=== PATIENT | male | born 1980 | race Two or more races ===

== ENCOUNTER 2024-11-05 23:16 | Inpatient (IN) | payer MEDICAID, SELFPAY ==
[2024-11-05 23:17] VITALS: BMI 25.8
--- NOTE | 2024-11-05 23:21 | XR_ITS ---
Examination: PA lateral chest 2 views Upright PA and lateral chest 2 views Date and time: November 06, 2024 0006 hours INDICATIONS: Cough and shortness of breath beginning one week ago. FINDINGS: Mild CHF Moderate enlargement of cardiac contour. Prominent vascular congestion with perihilar edema Fluid in the fissures on the lateral view IMPRESSION: Mild CHF.
[2024-11-05 23:48] VITALS: BP 128/92; PULSE 86; RESP 22; TEMP 36.9; O2SAT 97
[2024-11-06] VITALS (17 sets, daily range): BP systolic 110–151; BP diastolic 67–117; PULSE 75–90; RESP 15–36; TEMP 36.6–37; O2SAT 2–99; BMI 29.3
--- NOTE | 2024-11-06 00:26 | XR_ITS ---
Examination: CT chest, without intravenous contrast. Sagittal and coronal 2-D reconstructions. Exam date and time: November 06, 2024 at 0044 hours INDICATIONS: Shortness of breath today, enlarged heart on chest x-ray today CTDI:vol (mGy) 13.01 DLP: (mGycm) 549. Technique: Multiple 3.0 mm axial sections of the chest to been obtained. Bone and lung density settings are obtained. Sagittal and coronal 2-D reconstructions have been obtained. Low dose protocols were performed. One or more of the following dose reduction techniques were used; automated exposure control, adjustment of the mA and/or KV according to patient size, use of iterative reconstruction technique. Findings: No thoracic aortic aneurysmal dilatation Moderate enlargement cardiac contour with prominent vascular congestion and bilateral septal edema Suspicious for early superimposed pneumonia at the right lung base No visualized liver or splenic lesion The gallbladder wall is substantially thickened. IMPRESSION: [id number]-[id number] CHF Consider superimposed pneumonia right base Recommend hepatobiliary sonography follow-up to exclude cholecystitis
[2024-11-06 00:55] LABS: Lactate (Lactic Acid) 1.5 mMol/L (0.4-2.0)
[2024-11-06 00:57] LABS: Basophils # (Auto) 0.1 Thou/mm3 (0.0-0.2); Basophils % (Auto) 1 % (0-2.5); Eosinophils # (Auto) 0.2 Thou/mm3 (0.0-0.5); Eosinophils % (Auto) 2 % (0-10); Hematocrit 42.4 % (41.0-53.0); Hemoglobin 14.2 g/dL (13.5-16.0); Immature Granulocytes Auto 0.04 Thou/mm3 (0.00-0.00); Lymphocytes # (Auto) 2.5 Thou/mm3 (1.0-4.8); Lymphocytes % (Auto) 34 % (10-50); Mean Corpuscular HGB Conc 33.5 g/dl (31.0-37.0); Mean Corpuscular Hemoglobin 32.4 pg (25.0-35.0); Mean Corpuscular Volume 97 fL (80-100); Monocytes # (Auto) 0.6 Thou/mm3 (0.0-0.8); Monocytes % (Auto) 9 % (0-12); Neutrophils # (Auto) 4.0 Thou/mm3 (1.8-7.7); Neutrophils % (Auto) 54 % (37-80); Nucleated Red Blood Cell # 0.00 Thou/mm3 (0.00-0.00); Nucleated Red Blood Cell % 0 /100 WBC (0); Platelet Count 184 Thou/mm3 (140-440); RDW Standard Deviation 45.9 fL (35.1-43.9); Red Blood Count 4.38 Miln/mm3 (4.50-5.90); White Blood Count 7.3 Thou/mm3 (3.8-10.6)
--- NOTE | 2024-11-06 01:13 | PRELIM_ITS ---
CT scan of the chest without intravenous contrast (axial sections with sagittal and coronal reformats) November 06, 2024 at 0044 hours Clinical History: Enlarged heart, shortness of breath, pericardial effusion? Comparison: None. Findings: Small consolidation and ground-glass opacities in bilateral upper and lower lobes. Mild bilateral interstitial lung thickening. Dilated left atrium. Dilated left ventricle. No evidence of pleural effusion or pneumothorax. The mediastinum demonstrates no evidence of mass or lymphadenopathy. The thoracic aorta is unremarkable. There is no pericardial effusion. The osseous structures are unremarkable. The visualized upper abdominal viscera are unremarkable on this noncontrast study. Impression: 1. Bilateral interstitial lung thickening, suspicious for pulmonary edema. 2. Dilated left atrium and left ventricle, correlation with echocardiogram is recommended. 3. Small bilateral consolidation and ground-glass opacities, probably infectious/inflammatory in etiology. Report Electronically Signed By: Laith Donnelly 11/06/2024 1:11:10 AM [EST]
[2024-11-06 01:38] LABS: B-Type Natriuretic Peptide 1274 pg/mL (0-100)
[2024-11-06 01:47] LABS: Alanine Aminotransferase 20 U/L (10-49); Albumin, Serum 3.9 gm/dL (3.5-5.0); Albumin/Globulin Ratio 1.5 (1.2-2.2); Alkaline Phosphatase 107 U/L (46-116); Anion Gap 9 (7-16); Aspartate Amino Transferase 24 U/L (0-34); BUN/Creatinine Ratio 10 Ratio (12-20); Bilirubin,Total 0.8 mg/dL (0.3-1.2); Blood Urea Nitrogen 9 mg/dL (9-23); Calcium 8.8 mg/dL (8.3-10.6); Calcium (Corrected) 8.9 mg/dL (8.5-10.1); Carbon Dioxide 24.0 mMol/L (20.0-31.0); Chloride 111 mMol/L (98-107); Creatinine (Component) 0.9 mg/dL (0.6-1.3); Estimated Creatinine Clearance 93.5 mL/min (>60); Globulin 2.6 gm/dL (2.3-3.5); Glucose 106 mg/dL (74-106); Osmolality,Calculated 285 (275-295); Potassium 4.2 mMol/L (3.4-5.1); Procalcitonin 0.05 ng/ml (0.0-0.49); Sodium 144 mMol/L (136-145); Total Protein 6.5 gm/dL (5.7-8.2); eGFR > 60 See Note
[2024-11-06 01:48] LABS: Troponin I 2.473 ng/mL (0.0-0.045)
--- NOTE | 2024-11-06 01:49 | EKG_ITS ---
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
--- NOTE | 2024-11-06 01:49 | PD.EDSOB ---
ED SOB =RME/HPI General Chief Complaint: Shortness of Breath/Dyspnea Stated Complaint: COUGH SOB Time Seen by Provider: 11/06/24 00:25 Arrival date/time: 11/05/24 23:16 44M with no significant PMH presents to ED with 1 week of worsening non-bloody cough and SOB. Patient denies fevers/chills and CP. Limitations: no limitations Related Data Allergies Allergy/AdvReac Type Severity Reaction Status Date / Time No Known Allergies Allergy Verified 11/05/24 23:16 Review of Systems Review of Systems Systems Reviewed: All systems reviewed, normal except as documented Constitutional Constitutional: Reports system reviewed and no additional complaints, except as documented, Denies fever(s) and Denies headache(s) ENT Ears, Nose, Mouth, and Throat: Denies disequilibrium and Denies headache(s) Cardiovascular Cardiovascular: Reports system reviewed and no additional complaints, except as documented, Reports as per HPI, Denies chest pain and Reports dyspnea Respiratory Respiratory: Reports system reviewed and no additional complaints, except as documented, Reports as per HPI, Reports cough and Reports dyspnea Gastrointestinal Gastrointestinal: Reports system reviewed and no additional complaints, except as documented, Denies abdominal pain, Denies nausea and Denies vomiting Neurologic Neurologic: Reports system reviewed and no additional complaints, except as documented, Denies confusion, Denies disequilibrium and Denies headache(s) Psychiatric Psychiatric: Denies confusion Past Medical History Social History SMOKING STATUS: Never smoker ED Exam General Limitations: Present no limitations General appearance: Present alert and in no apparent distress Head Head exam: Present atraumatic Eye Eye exam: Present normal appearance, PERRL and EOMI ENT ENT exam: Present normal exam, normal oropharynx and mucous membranes moist Neck Neck exam: Present normal inspection, full ROM and trachea midline Chest Chest inspection: Present normal inspection and symmetric chest wall rise Respiratory Respiratory exam: Present normal lung sounds bilaterally Cardiovascular Cardiovascular exam: Present regular rate, normal rhythm and normal heart sounds Abdominal Exam Abdominal exam: Present soft and normal bowel sounds Extremities Exam Extremities exam: Present normal inspection and full ROM Back Exam Back exam: Present normal inspection and full ROM Neurological Exam Neurological exam: Present alert, oriented X3 and CN II-XII intact Psychiatric Psychiatric exam: Present normal affect and normal mood Skin Skin exam: Present warm, dry, intact and normal color Course Quality Measures none Orders Category Date Time Status Bedside COVID-19 Antigen Test NOW Care 11/06/24 02:29 Active COVID-19 Screening Questionnaire NOW Care 11/06/24 02:12 Active Decision to Admit X1 Care 11/06/24 02:12 Completed EKG (ED ONLY) *Do not use* NOW Care 11/06/24 01:49 Completed Insert IV NOW Care 11/06/24 01:[address] chest wo con Stat Exams 11/06/24 00:26 Taken EKG (ED Only) Stat Exams 11/06/24 01:49 Draft XR chest 2V Stat Exams 11/05/24 23:21 Taken BNP [B-Type Natriuretic Peptide] Stat Lab 11/06/24 00:46 Completed CBC Stat Lab 11/06/24 00:46 Completed CMP [Comprehensive Metabolic Panel] Stat Lab 11/06/24 00:46 Completed Lactate (Lactic Acid) Stat Lab 11/06/24 00:46 Completed Procalcitonin Stat Lab 11/06/24 00:46 Completed Troponin I Stat Lab 11/06/24 00:46 Completed Furosemide Inj [Lasix Inj] Med 11/06/24 02:28 Discontinued 40 mg IVP X1 ONE Vital Signs Vital signs: Vital Signs Temperature 98.4 F 11/05/24 23:48 Pulse Rate 86 11/05/24 23:48 Respiratory Rate 22 H 11/05/24 23:48 Blood Pressure 128/92 H 11/05/24 23:48 Pulse Oximetry (%) 97 11/05/24 23:48 Oxygen Delivery Method Room Air 11/05/24 23:48 O2 at 97% on RA and WNLs Shortness of Breath / Dyspnea MDM Narrative MDM Narrative:: 44M with no significant PMH presents to ED with 1 week of worsening non-bloody cough and SOB. Patient denies fevers/chills and CP. Physical exam reveals increased WOB, but clear lungs. Patient is afebrile, calm, and alert. EKG is LVH w/ non-specific ST-T wave changes. CXR enlarged heart. CT reveals dilated L ventricle and atrium, with pulmonary edema. No lobar PNA. No leukocytosis. CMP unremarkable. Procal/lactate normal. Trop and BNP significantly elevated. Spoke to IM resident who reports to Dr. Huggins who will admit patient for new onset HF. Patient data External records reviewed:: None Clinical information provided by:: patient Social determinants that could affect healthcare access:: none Patient has the following chronic illnesses:: none How is presenting disease/condition affected by chronic disease/condition?: no chronic disease Evaluation data The following diagnostics were reviewed and interpreted by me:: lab results, radiology exam(s) and EKG tracing(s) Lab and/or radiology exams considered but not ordered:: ordered Interpretation Summary: above Medications / Prescriptions Medications or Prescriptions considered but not ordered:: ordered Medication administrations:: Medication Administration History Discontinued Medications Furosemide (Furosemide Inj 10 Mg/Ml 4ml Vial) 40 mg IVP X1 ONE Stop: 11/06/24 02:29 Last Admin: 11/06/24 02:34 Dose: 40 mg Documented By: DT above Consultations Consultation(s) initiated? (list below): Yes Diagnosis Shortness of Breath Differential Diagnosis: acute exacerbation of chronic obstructive airways disease, congestive heart failure, community acquired pneumonia, asthma with exacerbation, pulmonary embolism and other (new onset heart failure) Most likely diagnosis given after review of the tests above:: new onset heart failure Admission Indicated Admission indicated?: indicated Admission Request Was there a request for admission?: Yes Admission Attestation Admission request attestation: Discussed case with [Dr. Huggins] from Hospitalist service regarding admission. Discussed patients ED course, exam findings, labs, and radiology results. The Hospitalist [agrees] to accept the patient for admission. Disposition Plan Disposition Plan: Admit Discharge Plan Plan Patient Disposition: Admit Acute Care w/in Hospital Prescriptions/Referrals Referrals: No Primary/Family,Physician [Primary Care Provider] - In 1 week Problem List Clinical Impression: New onset of congestive heart failure Patient/Caregiver Discharge Instructions Print Language: Slovenian Stand Alone Forms: Estella Award Info., Patient Portal Info Letter
[2024-11-06] MEDS: FUROSEMIDE INJ 10 MG/ML 4ML VIAL 40 MG IVP ×3 (02:34→18:43)
--- NOTE | 2024-11-06 02:53 | ESHP_ITS ---
Documentation for date of: 11/06/24 HPI History of Present Illness Chief complaint: Shortness of breath History of present illness: 44-year-old male past medical history of hypertension and meth use disorder presenting to the ED on 11/06 with shortness of breath. Patient states that shortness of breath started about 10 days ago but it has progressively worsened. He states that he cannot breathe anymore and has not slept for the past 3 days. Patient denies seeing PCP recently and has not followed up in several years. He admitted to meth use for about 5 years with last use several months ago. Patient has orthopnea, paroxysmal nocturnal dyspnea but denies any lower extremity swelling. Patient's daughter is bedside and corroborated story. 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 ROS: All 12 systems assessed and the patient denies unless otherwise stated in HPI In the ED, patient presented mildly hypertensive 120/92, heart rate of 86, respiratory 22, afebrile satting 97 on room air. Pertinent lab findings include WBC 7.3, hemoglobin 14.2, platelet 184, BUN 9, creatinine 0.9, EGFR greater than 60, lactic acid 1.5, troponin 2.473, BNP of 1274. Chest x-ray pending official read, CT chest without IV shows bilateral interstitial lung thickening suspicious for pulmonary edema, dilated left atrium and ventricle, small bilateral consolidation and groundglass opacities. EKG shows sinus rhythm with left axis deviation. Patient will be admitted for acute CHF exacerbation likely secondary to meth use disorder will be treated with IV diuretics and cardiology consultation. Exam Vital Signs Temp Pulse Resp BP Pulse Ox O2 Del Method 98.3 F 89 30 H 133/96 H 99 Room Air 11/06/24 02:03 11/06/24 02:34 11/06/24 02:03 11/06/24 02:34 11/06/24 02:03 11/06/24 02:03 Narrative Exam Physical Exam: GENERAL: Awake, appears to be in respiratory distress with tachypnea, appears stated age HEENT: NC/AT. Moist mucosa. PERRLA/EOMI. CARDIO: Heart RRR, distant heart sounds, no obvious murmurs auscultated. No JVD noted PULM: No coughing but appears visibly short of breath. Lungs clear to auscultation bilaterally GI: Abdomen soft, NT/ND, +BS. SKIN/MSK/EXT: No wounds/discoloration/rashes/edema/amputations. +Pedal pulses present B/L. NEURO: Oriented x3, Moves extremities x4, no focal neurologic deficits noted. Bedside POCUS shows likely global hypokinesis with low EF but no signs of pericardial effusion, hypertrophy of left ventricle Results: Labs 11/06/24 00:46 11/06/24 00:46 Labs: Short CBC 11/06/24 Range/Units 00:46 WBC 7.3 (3.8-10.6) Thou/mm3 Hgb 14.2 (13.5-16.0) g/dL Hct 42.4 (41.0-53.0) % Plt Count 184 (140-440) Thou/mm3 BMP 11/06/24 00:46 Sodium 144 Potassium 4.2 Chloride 111 H Carbon Dioxide 24.0 BUN 9 Creatinine 0.9 Glucose 106 Calcium 8.8 Cardiac Enzymes 11/06/24 Range/Units 00:46 Troponin I 2.473 H* (0.0-0.045) ng/mL Liver Function 11/06/24 Range/Units 00:46 Total Bilirubin 0.8 (0.3-1.2) mg/dL AST 24 (0-34) U/L ALT 20 (10-49) U/L Alkaline Phosphatase 107 (46-116) U/L Albumin 3.9 (3.5-5.0) gm/dL Quality Measures Quality Measures none Medications Home Medications and Allergies Allergies Allergy/AdvReac Type Severity Reaction Status Date / Time No Known Allergies Allergy Verified 11/05/24 23:16 Visit Medications Acetaminophen (Acetaminophen 325 Mg Tablet) 650 mg PO Q6H PRN PRN Reason: PAIN SCALE 1-3 (mild Stop: 12/06/24 02:45 Aspirin (Aspirin Ec 81 Mg Tabec) 81 mg PO QDAY YUE Stop: 12/07/24 08:59 Atorvastatin Calcium (Atorvastatin Calcium 20 Mg Tablet) 40 mg PO HS YUE Stop: 12/06/24 20:59 Furosemide (Furosemide Inj 10 Mg/Ml 4ml Vial) 40 mg IVP BIDD YUE Stop: 12/06/24 05:59 Heparin Sodium (Porcine) (Heparin Sod Inj 5000 Unit/Ml Vial) 4,350 unit 60 unit/kg (4350 unit) IV X1 ONE; Protocol Stop: 11/06/24 02:47 Heparin Sodium (Porcine) (Heparin Sod Inj 5000 Unit/Ml Vial) 2,200 unit 30 unit/kg (2200 unit) IV X1 ONE; Protocol Stop: 11/06/24 02:47 Heparin Sodium/Dextrose (Heparin In D5w Ivpb) 25,000 unit in 250 mls @ 8.709 mls/hr IV .Q24H YUE; Protocol Stop: 11/20/24 02:59 Ondansetron HCl (Ondansetron Inj 2 Mg/Ml Inj 2 Ml) 4 mg IVP Q6H PRN; Protocol PRN Reason: NAUSEA OR VOMITING Stop: 12/06/24 02:45 Discontinued Medications Aspirin (Aspirin 325 Mg Tablet) 325 mg PO X1 ONE Stop: 11/06/24 02:52 Furosemide (Furosemide Inj 10 Mg/Ml 4ml Vial) 40 mg IVP X1 ONE Stop: 11/06/24 02:29 Last Admin: 11/06/24 02:34 Dose: 40 mg Assessment & Plan Plan 44-year-old male past medical history of hypertension and meth use disorder presenting to the ED with shortness of breath will be admitted for acute CHF exacerbation likely secondary to meth use disorder will be treated with IV diuretics and cardiology consultation. #Acute congestive heart failure, likely reduced ejection fraction NYHA class IV Likely secondary to meth use disorder versus hypertrophic cardiomyopathy versus NSTEMI Patient last used meth several months ago, has hypertension On examination, patient appears in respiratory distress but on room air with no JVD, no peripheral edema, no crackles on auscultation BNP of 1274 CT chest without IV shows bilateral interstitial lung thickening suspicious for pulmonary edema, dilated left atrium and ventricle, small bilateral consolidation and groundglass opacities Plan: IV Lasix 40 twice daily Echo ordered Cardiology consulted, appreciate recommendations Strict I's and O's Daily weight Fluid restriction 1800 mL #NSTEMI type I #Elevated troponin As noted above patient has acute congestive heart failure possibly secondary to NSTEMI type I Patient did complain of back pain which is not present at the time of examination, no typical chest pain noted Troponin of 2.473 EKG shows sinus rhythm with left axis deviation Plan: Started patient on IV heparin drip Trend troponin Q6H Started patient on aspirin and atorvastatin #Hypertension Chronic medical problem, unsure if patient is on home antihypertensive Currently the patient is mildly hypertensive 133/96 Plan: Pending med rec Restart home medications when appropriate #Meth use disorder Patient is apparently been using 5 years of meth Last use was several months ago Plan: Urine drug screen ordered Counseled on cessation Consider social service consultation Health Maintenance: Lines: PIV Diet: N.p.o. Bowel: Not needed at this time GI prophylaxis: Not needed at this time DVT prophylaxis: Heparin drip Dispo: IV diuretics for acute CHF exacerbation, cardiology consulted Code: Full Patient seen and assessed with attending Dr. Joseluis Prieto, DO PGY-2 Internal Medicine - GME Attending Provider Attestation/Addendum I attest that I was physically present for the evaluation, physical examination, lab and imaging review of the patient with the residents. I discussed the case with the residents and agree with the findings and plans of care as documented above. After examination of the patient and review of the clinical data I feel that this patient needs admission to the hospital for further treatment/evaluation. Patient is a 44 years old male with past medical history of hypertension and prior methamphetamine abuse who presented to the ED with complaint of shortness of breath. Patient has been having worsening shortness of breath for last 7 to 10 days. His SOB has become much worse in the last 3 days. He also complained of some back pain, chest tightness and feels like he is drowning. Denied any chest pain or palpitation. At bedside, patient appears uncomfortable and in distress, noted to have tachypnea and appears short of breath. Denies any fever, chills, upper respiratory symptoms. He used to use methamphetamine but states that stopped several months ago, close to a year. He has orthopnea, PND but denies any lower extremity swelling. In the ED, vital signs are stable except for mild hypertension and tachypnea. Saturating well on room air. Lab results are significant for troponin of 2.[address] chest was done, preliminary read is states suspicion for pulmonary edema, dilated left atrium and ventricle, small bilateral consolidation and opacities. EKG shows left bundle branch block, T wave inversion in lateral leads including lead I, aVL, V5 and V6. Also findings suggestive of left ventricular hypertrophy. Bedside POCUS appears to show left ventricular hypertrophy and hypokinesis. We will admit the patient for management of acute congestive heart failure and concern for ACS. #Concern for ACS Patient complained of back pain, shortness of breath, feeling of drowning, appears uncomfortable, denies typical chest pain EKG shows left bundle branch block pattern, T wave inversion on lateral leads, no ST elevation, prior EKG not available for comparison CT chest concerning for pulmonary edema, patient has orthopnea/PND, no pedal edema Troponin level is at 2.473 We will start patient on heparin drip Also started aspirin and atorvastatin Cardiology contacted, will follow patient with us, appreciate recommendations #Acute CHF Patient has hypertension, history of meth abuse BNP level is 1274, CT chest suspicious for pulmonary edema, patient has SOB, orthopnea, PND Started on IV Lasix 40 mg twice daily Strict ins and outs, fluid restriction and daily weight Echocardiography ordered #Hypertension Not on home medication Monitor closely and add antihypertensives as needed #History of methamphetamine abuse Last use several months ago, urine toxicology negative Ana Huggins MD
--- NOTE | 2024-11-06 02:53 | ECHO_ITS ---
Transthoracic Echo Report Ht (in): 66 Wt (lb): 160 Exam Location: Echo Lab Status: Emergency [employer] Mixer: Makeda Morgan Indications: Procedure Performed: BP: 116 / 83 HR: 77 Technical Quality: Technically difficult study MEASUREMENTS (Male / Female) Normal Values 2D ECHO LV Diastolic Diameter PLAX 8.3 cm 4.2 - 5.9 / 3.9 - 5.3 cm LV Systolic Diameter PLAX 7.6 cm IVS Diastolic Thickness 0.9 cm 0.6 - 1.0 / 0.6 - 0.9 cm LVPW Diastolic Thickness 1.1 cm 0.6 - 1.0 / 0.6 - 0.9 cm LV Relative Wall Thickness 0.2 LVOT Diameter 2.6 cm Aortic Root Diameter 2.8 cm LA Systolic Diameter LX 5.0 cm 3.0 - 4.0 / 2.7 - 3.8 cm LV Ejection Fraction MOD 4C 19.7 % LV Cardiac Index MOD 4C 2412.5 cm?/min?m? LV Ejection Fraction 4C AL 20.6 % LV Cardiac Index 4C AL 2604.9 cm?/min?m? LA Volume Index 63.3 cm?/m? 16 - 28 cm?/m? M-MODE Aortic Root Diameter MM 3.0 cm LA Systolic Diameter MM 5.1 cm LA Ao Ratio MM 1.7 AV Cusp Separation MM 1.8 cm DOPPLER AV Peak Velocity 111.5 cm/s AV Peak Gradient 5.0 mmHg AV Mean Gradient 2.0 mmHg AV Velocity Time Integral 14.3 cm AI Peak Velocity 274.5 cm/s AI Peak Gradient 30.1 mmHg AI Pressure Half Time 966.0 ms LVOT Peak Velocity 56.9 cm/s LVOT Peak Gradient 1.3 mmHg LVOT Velocity Time Integral 7.4 cm LVOT Cardiac Index 1638.6 cm?/min?m? AV Area Cont Eq vti 2.8 cm? AV Area Cont Eq pk 2.7 cm? MV Area PHT 8.1 cm? MR Peak Velocity 449.0 cm/s MR Peak Gradient 80.6 mmHg Mitral E Point Velocity 86.8 cm/s Mitral A Point Velocity 34.9 cm/s Mitral E to A Ratio 2.5 LV E' Lateral Velocity 10.3 cm/s Mitral E to LV E' Lateral Ratio 8.4 LV E' Septal Velocity 2.9 cm/s Mitral E to LV E' Septal Ratio 29.5 TR Peak Velocity 467.0 cm/s TR Peak Gradient 87.2 mmHg PV Peak Velocity 59.7 cm/s PV Peak Gradient 1.4 mmHg FINDINGS Left Ventricle Global left ventricular systolic function is moderately decreased with normal wall thickness. The ejection fraction is visually estimated at 15 %. Global left ventricular systolic function is severely decreased. Right Ventricle The right ventricle is normal in size. The right ventricular systolic function is moderately decreased. Left Atrium Severely increased left atrial volume 63.3 mL/m?. Right Atrium The right atrium is normal by two-dimensional imaging, color flow and Doppler imaging with no structural abnormalities, no thrombus formation present. Atrial Septum The interatrial septum appears normal with no evidence of a shunt. Aorta The aorta is normal by two-dimensional, color flow and Doppler interrogation. Mitral Valve Moderate mitral regurgitation. Aortic Valve Aortic valve sclerosis. [id number] aortic valve regurgitation. Tricuspid Valve The tricuspid valve is normal by two-dimensional, color flow and Doppler interrogation. There is trace tricuspid valve regurgitation. Pulmonic Valve The pulmonic valve is not well visualized. There is no significant pulmonic valve regurgitation. Vessels The pulmonary artery appears normal. The inferior vena cava pulmonary and hepatic veins appear normal. Pericardium The pericardium is normal by two-dimensional imaging. There is no significant pericardial effusion. CONCLUSIONS Indication: Acute CHF Dilated cardiomyopathy LVEDD 8cm. Global LV systolic function is severely decreased with normal wall thickness. Estimated EF at 15 % The RV is normal in size. The RV systolic function is moderately decreased. Severely increased LA volume 63.3 mL/m?. Mild to moderate mitral regurgitation Juanis Garcia (Electronically Signed) Final Date: 07 November 2024 14:02
[2024-11-06 03:17] LABS: Amphetamine/Methamp Scrn,U Negative (Negative); Barbiturate Screen,Urine Negative (Negative); Benzodiazepines Screen,Urine Negative (Negative); Benzoylecgonine Screen, Ur Negative (Negative); Fentanyl Screen,Urine Negative (Negative); Opiate Screen,Urine Negative (Negative); THC Screen,Urine Negative (Negative)
[2024-11-06 03:20] LABS: INR 1.0 (0.9-1.3); Partial Thromboplastin Time 28.0 Seconds (22.0-36.0); Prothrombin Time 10.8 Seconds (9.0-12.2)
[2024-11-06] MEDS: HEPARIN SOD INJ 5000 UNIT/ML VIAL 4000 UNIT IV ×2 (03:44→10:57)
[2024-11-06] MEDS: Heparin/D5w 25K 250 ML Ivpb 25,000 UNIT/250 ML BAG 9.906 UNIT IV (03:46)
[2024-11-06 04:46] LABS: Basophils # (Auto) 0.1 Thou/mm3 (0.0-0.2); Basophils % (Auto) 1 % (0-2.5); Eosinophils # (Auto) 0.2 Thou/mm3 (0.0-0.5); Eosinophils % (Auto) 2 % (0-10); Hematocrit 43.6 % (41.0-53.0); Hemoglobin 14.6 g/dL (13.5-16.0); Immature Granulocytes Auto 0.07 Thou/mm3 (0.00-0.00); Lymphocytes # (Auto) 2.2 Thou/mm3 (1.0-4.8); Lymphocytes % (Auto) 27 % (10-50); Mean Corpuscular HGB Conc 33.5 g/dl (31.0-37.0); Mean Corpuscular Hemoglobin 32.4 pg (25.0-35.0); Mean Corpuscular Volume 97 fL (80-100); Monocytes # (Auto) 0.6 Thou/mm3 (0.0-0.8); Monocytes % (Auto) 7 % (0-12); Neutrophils # (Auto) 5.1 Thou/mm3 (1.8-7.7); Neutrophils % (Auto) 62 % (37-80); Nucleated Red Blood Cell # 0.00 Thou/mm3 (0.00-0.00); Nucleated Red Blood Cell % 0 /100 WBC (0); Platelet Count 200 Thou/mm3 (140-440); RDW Standard Deviation 46.2 fL (35.1-43.9); Red Blood Count 4.51 Miln/mm3 (4.50-5.90); White Blood Count 8.2 Thou/mm3 (3.8-10.6)
[2024-11-06 04:57] LABS: Glucose Estimated Average 120 mg/dL (80-131); Hemoglobin A1C 5.8 % Hgb (4.8-6.0)
[2024-11-06 04:59] LABS: Alanine Aminotransferase 23 U/L (10-49); Albumin, Serum 4.3 gm/dL (3.5-5.0); Albumin/Globulin Ratio 1.5 (1.2-2.2); Alkaline Phosphatase 113 U/L (46-116); Anion Gap 11 (7-16); Aspartate Amino Transferase 26 U/L (0-34); BUN/Creatinine Ratio 13 Ratio (12-20); Bilirubin,Total 1.0 mg/dL (0.3-1.2); Blood Urea Nitrogen 13 mg/dL (9-23); Calcium 9.4 mg/dL (8.3-10.6); Calcium (Corrected) 9.4 mg/dL (8.5-10.1); Carbon Dioxide 25.3 mMol/L (20.0-31.0); Cardiac Risk Estimate 4.1 RATIO (4.0-6.7); Chloride 108 mMol/L (98-107); Cholesterol 199 mg/dL (132-200); Creatinine (Component) 1.0 mg/dL (0.6-1.3); Estimated Creatinine Clearance 94.1 mL/min (>60); Globulin 2.8 gm/dL (2.3-3.5); Glucose 112 mg/dL (74-106); HDL Cholesterol 49 mg/dL (40-60); LDL Cholesterol,Calculated 123 mg/dL (0-130); Magnesium 1.6 mg/dL (1.6-2.6); Osmolality,Calculated 287 (275-295); Phosphorous 3.6 mg/dL (2.4-5.1); Potassium 3.9 mMol/L (3.4-5.1); Sodium 144 mMol/L (136-145); Total Protein 7.1 gm/dL (5.7-8.2); Triglycerides 135 mg/dL (30-150); eGFR > 60 See Note
--- NOTE | 2024-11-06 07:10 | PC.NURSE ---
Pt denies any pain upon assumption of care, pt does have increased work of breathing, sitting up on side of bed, pt is 98%, and hypertensive. at bedside attentive to pt, urinal emptied at this time, (See I&O). Will cont w/poc.
[2024-11-06 07:27] LABS: Troponin I 2.416 ng/mL (0.0-0.045)
--- NOTE | 2024-11-06 08:37 | PC.NURSE ---
Pt calm resting w/eyes closed, remains hypertensive on tele, does not appear to be in any distress, opt breathing normally w/even rise and fall of chest. Daughter at bedside attentive to pt.
[2024-11-06 10:41] LABS: Partial Thromboplastin Time 32.3 Seconds (22.0-36.0)
[2024-11-06] MEDS: Magnesium Sulfate 4 GM Ivpb 4 GM/50 ML BAG IV (10:41)
[2024-11-06 13:45] LABS: Troponin I 2.259 ng/mL (0.0-0.045)
--- NOTE | 2024-11-06 13:49 | PC.CC ---
Patient is a 44 year-old male who present to the hospital for Acute CHF Exacerbation. Maddie DOWNING and NON CATEGORICAL PRESCHOOL TEACHER Student [employer] made [id number] contact with patient. ASW introduced self, role, and reason for visit. Patient appeared alert and oriented to self, location, and situation. Patient provided consent for NON CATEGORICAL PRESCHOOL TEACHER to remain in the room during assessment. Patient was pleasant and engaged in initial assessment. Patient confirmed information on demographics and reports to living with his father. Patient's medical decision maker in the event he is unable to make his own medical decisions is his daughter, Bhumi Laureano . At home patient ambulates independently and completes his own ADLs. Patient does not require any DME or Oxygen. Patient reports he does not have primary provider and uses [facility] for prescription medications. Upon discharge patient plans to return home. rn social services to follow up on discharge on needs.
--- NOTE | 2024-11-06 15:41 | PC.CC ---
Discussed w/ Dr. Walton and patient is anticipated to discharge on Entresto which requires PA with [facility]. Due to patient's new HPE, his insured status is not yet recognized electronically and unable to complete PA. Provided Entresto free trial card to MD for patient to use upon discharge.
--- NOTE | 2024-11-06 15:46 | ESPR_ITS ---
<Statement entered by Terrie Huitron MD - 11/10/24 08:03> I reviewed above note and agree with findings and plans. I have also personally examined the patient with medicine team and went over assessment and plan with medical team including international sales representative and resident physician. <Statement entered by Poli Walton MD - 11/06/24 17:00> Patient seen and examined at bedside. I discussed and supervised with the international sales representative physician who took care of this patient. I personally saw and examined the patient. I agree with most of the assessment and plan. Per cardio, no plan for cath, troponin elevation likely due to non-ischemic cardiomyopathy. Heparin drip stopped. Echo pending, will begin initiating GDMT after echo read. Utox negative, patient reports last meth use 1 month ago. Will continue Lasix 40 IV BID and fluid restriction. Plan of care discussed with attending Dr. Huitron. Poli Walton MD PGY-2 Documentation for date of: 11/06/24 Subjective Subjective Interval history: Patient reports improvement in breathing and less chest heaviness, though mild residual chest discomfort persists. Denies palpitations, dizziness, leg swelling, orthopnea, PND, fever, chills, nausea, vomiting, or visual changes. States he has urinated since admission but has not had a bowel movement. Denies recent meth use; last use about 1 month ago. No withdrawal symptoms. No new complaints today and appreciates being able to rest. Exam Vital Signs Temp Pulse Resp BP Pulse Ox O2 Del Method O2 Flow Rate 98.0 F 77 18 116/83 97 Nasal Cannula 2 11/06/24 15:04 11/06/24 15:04 11/06/24 15:04 11/06/24 15:04 11/06/24 15:04 11/06/24 15:04 11/06/24 15:04 Narrative Exam Gen: Awake, alert, calm, NAD HEENT: NCAT, moist mucosa, PERRLA, EOMI CV: RRR, no murmurs, no JVD Resp: No increased work of breathing, lungs clear bilaterally Abd: Soft, NT/ND, +BS Ext: No edema, +pedal pulses Neuro: AOx3, no focal deficits Objective Labs 11/06/24 04:28 11/06/24 04:28 Labs: Laboratory Results - last 24 hr 11/06/24 11/06/24 11/06/24 00:46 02:54 04:28 WBC 7.3 8.2 RBC 4.38 L 4.51 Hgb 14.2 14.6 Hct 42.4 43.6 MCV 97 97 MCH 32.4 32.4 MCHC 33.5 33.5 RDW Std Deviation 45.9 H 46.2 H Plt Count 184 200 Neut % (Auto) 54 62 Lymph % (Auto) 34 27 [place] % (Auto) 9 7 Eos % (Auto) 2 2 Baso % (Auto) 1 1 Neut # (Auto) 4.0 5.1 Lymph # (Auto) 2.5 2.2 [place] # (Auto) 0.6 0.6 Eos # (Auto) 0.2 0.2 Baso # (Auto) 0.1 0.1 Immature Gran # (Auto) 0.04 H 0.07 H Absolute Nucleated RBC 0.00 0.00 Immature Gran % 1 H 1 H Nucleated RBC % 0 0 PT 10.8 INR 1.0 APTT 28.0 Sodium 144 144 Potassium 4.2 3.9 Chloride 111 H 108 H Carbon Dioxide 24.0 25.3 Anion Gap 9 11 BUN 9 13 Creatinine 0.9 1.0 Estim Creat Clear Calc 93.5 94.1 eGFR > 60 > 60 BUN/Creatinine Ratio 10 L 13 Glucose [address] Glu mg/dL 120 Hemoglobin A1c 5.8 Calculated Osmolality 285 287 Lactic Acid 1.5 Calcium 8.8 9.4 Corrected Calcium 8.9 9.4 Phosphorus 3.6 Magnesium 1.6 Total Bilirubin 0.8 1.0 AST 24 26 ALT 20 23 Alkaline Phosphatase 107 113 Troponin I 2.473 H* B-Natriuretic Peptide 1274 H* Total Protein 6.5 7.1 Albumin 3.9 4.3 Globulin 2.6 2.8 Albumin/Globulin Ratio 1.5 1.5 Triglycerides 135 Cholesterol 199 LDL Cholesterol, Calc 123 HDL Cholesterol 49 Cholesterol/HDL Ratio 4.1 Procalcitonin 0.05 Urine Opiates Screen Negative Urine Fentanyl Screen Negative Ur Barbiturates Screen Negative U Amphetamin/Meth Scrn Negative U Benzodiazepines Scrn Negative U Cocaine Metab Screen Negative U Marijuana (THC) Screen Negative 11/06/24 11/06/24 11/06/24 06:45 10:19 13:09 WBC RBC Hgb Hct MCV MCH MCHC RDW Std Deviation Plt Count Neut % (Auto) Lymph % (Auto) [place] % (Auto) Eos % (Auto) Baso % (Auto) Neut # (Auto) Lymph # (Auto) [place] # (Auto) Eos # (Auto) Baso # (Auto) Immature Gran # (Auto) Absolute Nucleated RBC Immature Gran % Nucleated RBC % PT INR APTT 32.3 Sodium Potassium Chloride Carbon Dioxide Anion Gap BUN Creatinine Estim Creat Clear Calc eGFR BUN/Creatinine Ratio Glucose Estimated Ave Glu mg/dL Hemoglobin A1c Calculated Osmolality Lactic Acid Calcium Corrected Calcium Phosphorus Magnesium Total Bilirubin AST ALT Alkaline Phosphatase Troponin I 2.416 H* 2.259 H* B-Natriuretic Peptide Total Protein Albumin Globulin Albumin/Globulin Ratio Triglycerides Cholesterol LDL Cholesterol, Calc HDL Cholesterol Cholesterol/HDL Ratio Procalcitonin Urine Opiates Screen Urine Fentanyl Screen Ur Barbiturates Screen U Amphetamin/Meth Scrn U Benzodiazepines Scrn U Cocaine Metab Screen U Marijuana (THC) Screen Quality Measures Quality Measures VTE prophylaxis Assessment & Plan Assessment Current Active Medications: Generic Name Dose Route Start Last Admin Trade Name Freq PRN Reason Stop Dose Admin Acetaminophen 650 mg 11/06/24 02:46 Acetaminophen 325 Mg Tablet PO 12/06/24 02:45 Q6H PRN PAIN SCALE 1-3 (mild Aspirin 81 mg 11/07/24 09:00 Aspirin Ec 81 Mg Tabec PO 12/07/24 08:59 QDAY YUE Atorvastatin Calcium 40 mg 11/06/24 21:00 Atorvastatin Calcium 20 Mg Tablet PO 12/06/24 20:59 HS YUE Enoxaparin Sodium 40 mg 11/07/24 09:00 Enoxaparin Sod Inj 40 Mg/0.4 Ml Syringe SC 11/21/24 08:59 QDAY YUE Furosemide 40 mg 11/06/24 06:00 11/06/24 07:10 Furosemide Inj 10 Mg/Ml 4ml Vial IVP 12/06/24 05:59 40 mg BIDD YUE Administration Ondansetron HCl 4 mg 11/06/24 02:46 Ondansetron Inj 2 Mg/Ml Inj 2 Ml IVP 12/06/24 02:45 Q6H PRN NAUSEA OR VOMITING Protocol Plan 44-year-old male with history of hypertension and methamphetamine use disorder (last use ~1 month ago), admitted for acute decompensated heart failure with elevated troponin and concern for NSTEMI likely type II, now improving with diuresis and pending Echo. #Non Ischemic Cardiomyopathy New diagnosis in setting of NYHA Class IV symptoms and meth use (last use ~1 month ago) Likely HFrEF given global hypokinesis on POCUS, CT/XR findings consistent with pulmonary edema, and elevated BNP. BNP 1274, CXR: vascular congestion, CT: LA/LV dilation + RLL infiltrate, Echo pending Plan: * Continue IV Lasix 40 mg BID * Strict I&Os, daily weights * Fluid restriction 1800 mL/day * Cardiology following ? will recommend starting GDMT after echo * Monitor for symptom improvement #NSTEMI (Type I vs II) Elevated troponin 2.473 --> 2.416, no dynamic EKG changes; LBBB pattern with lateral TWI; patient denies chest pain Plan: * Heparin drip discontinued * Continue to trend troponin q6h * Continue aspirin 81 mg daily + atorvastatin 40 mg daily * Follow-up with cardiology recs #Hypertension Chronic, likely uncontrolled, not on meds. BP mildly elevated on admission (133/96). Currently 116/83 Plan: * Monitor BP closely * Start guideline-directed therapy after echo and stabilization per cardiology #Methamphetamine Use Disorder Reported last use ~1 month ago, Utox negative, no signs of withdrawal Plan: * Counseling provided * Consider social work referral for substance use support * Monitor for withdrawal symptoms #Possible Superimposed Pneumonia CT chest showed possible RLL infiltrate Plan: * Monitor for fevers, sputum, leukocytosis * Hold antibiotics unless clinical suspicion rises #Hypomagnesemia Mg 1.6 Plan: * Replete with IV magnesium as needed * Recheck levels with daily labs Health Maintenance Disposition: Telemetry; monitor for improvement; initiate GDMT pending echo Lines: PIV Diet: NPO GI prophylaxis: Not indicated DVT prophylaxis: Lovenox Code status: Full ----- Plan discussed with attending physician Dr. Huitron and senior resident Dr. Anastacia MD PGY-1 Internal Medicine
[2024-11-06 17:42] LABS: Partial Thromboplastin Time 21.6 Seconds (22.0-36.0)
--- NOTE | 2024-11-06 19:16 | ESCONSULT_ITS ---
<Statement entered by Colby Hurtado MD - 11/08/24 12:52> I personally evaluated the patient examined the patient with the resident physician Dr. Boykin PGY 2 patient is has a history of polysubstance abuse methamphetamine abuse until recently never been to physician came to the hospital progressive shortness for 1 week as marked cardiomegaly dilated cardiomyopathy severe LV dysfunction ejection fraction 15%. Patient clearly has dilated cardiomyopathy possibly substance abuse related nonischemic type. There was some minor IVCD changes on EKG with subtle ST changes but no evidence of myocardial infarction troponin level persistently elevated not unusual patient with markedly dilated ventricle with dilated cardiomyopathy with decompensated heart failure. Recommend guideline directed medical management no evidence of myocardial infarction. Patient's not orthopneic anymore not have any significant shortness of breath and patient can be discharged home once he is diuresed well on diuretic ANNIKA ARB low-dose beta-amado combination as tolerated to have cardiology follow-up as an outpatient may require further workup but patient strongly counseled to stop methamphetamine use in future. Unless he stops methamphetamine abuse programs extremely poor I evaluated patient with resident physician PGY [address] Boykin agree with the treatment plan recommendation as documented HPI Data of Consult Requesting Physician: Ana Huggins MD Admitting Provider: Ana Huggins MD Attending Provider: Ana Huggins MD Primary Care Provider: Physician No Primary/Family Consult Narrative History of present illness: Mr. Rodriguez Is a 44-year-old male with no past medical presented to the ED on 11/06/2024 complaining of progressively worsening shortness of breath for the past 1 week. Patient states all of his symptoms started 1 week ago where he was having extreme shortness of breath and was unable to perform his daily activities. 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 Patient also had severe orthopnea and was unable to lay flat for the past 1 week. Patient denies any similar symptoms previously. Patient denies any dizziness, syncopal episodes, PND, chest pain, palpitations or pressure. Patient has not followed up with a primary care for many years because he states he had no medical problems. patient admits to smoking methamphetamine for approximately a year to a year and a half daily and states his last use was approximately 1 month ago. Patient denies any use of any other drugs including tobacco or alcohol. Patient also denies any family history of sudden cardiac or any cardiac history and either of his parents or siblings. Cardiology is consulted for new onset of CHF and concern for ST elevation found on EKG PMH: No known past medical history PSH: No known surgical history SH: Smoked methamphetamine for a year and a half daily denies smoking tobacco or other illicit drugs and denies any use of alcohol Family history: Patient denies any cardiac family history Medications: Patient does not take any medications cc:: cc: Ana Huggins MD Review of Systems Review of Systems Systems Reviewed: All systems reviewed, normal except as documented Exam Vital Signs Temp Pulse Resp BP Pulse Ox O2 Del Method O2 Flow Rate 98.4 F 86 18 121/87 H 97 Nasal Cannula 2 11/06/24 17:58 11/06/24 18:43 11/06/24 17:58 11/06/24 18:43 11/06/24 17:58 11/06/24 17:58 11/06/24 17:58 Narrative Exam GENERAL: A&Ox3 . middle aged male, well groomed and cooperative, Awake, Not in acute distress NEURO: no focal neurological deficits noted HEENT: Atraumatic, Normocephalic. mucous membranes moist. Eyes open, symmetrical, & clear HEART: Normal Heart Sounds LUNGS: Clear to auscultation with no wheezing or crackles. ABDOMEN: soft, non-distended, non-tender, bowel sounds heard, no guarding or rebound tenderness SKIN: No Rash or ecchymoses EXTREMITIES: No edema, tenderness, able to move all 4 extremities, pedal pulses palpated Results Labs 11/06/24 04:28 11/06/24 04:28 Labs: Short CBC 11/06/24 11/06/24 Range/Units 00:46 04:28 WBC 7.3 8.2 (3.8-10.6) Thou/mm3 Hgb 14.2 14.6 (13.5-16.0) g/dL Hct 42.4 43.6 (41.0-53.0) % Plt Count 184 200 (140-440) Thou/mm3 BMP 11/06/24 11/06/24 00:46 04:28 Sodium 144 144 Potassium 4.2 3.9 Chloride 111 H 108 H Carbon Dioxide 24.0 25.3 BUN 9 13 Creatinine 0.9 1.0 Glucose 106 112 H Calcium 8.8 9.4 Cardiac Enzymes 11/06/24 11/06/24 11/06/24 Range/Units 00:46 06:45 13:09 Troponin I 2.473 H* 2.416 H* 2.259 H* (0.0-0.045) ng/mL Liver Function 11/06/24 11/06/24 Range/Units 00:46 04:28 Total Bilirubin 0.8 1.0 (0.3-1.2) mg/dL AST 24 26 (0-34) U/L ALT 20 23 (10-49) U/L Alkaline Phosphatase 107 113 (46-116) U/L Albumin 3.9 4.3 (3.5-5.0) gm/dL Quality Measures Quality Measures VTE prophylaxis Medications Home Medications and Allergies Allergies Allergy/AdvReac Type Severity Reaction Status Date / Time No Known Allergies Allergy Verified 11/05/24 23:16 Visit Medications Acetaminophen (Acetaminophen 325 Mg Tablet) 650 mg PO Q6H PRN PRN Reason: PAIN SCALE 1-3 (mild Stop: 12/06/24 02:45 Aspirin (Aspirin Ec 81 Mg Tabec) 81 mg PO QDAY [facility] Stop: 12/07/24 08:59 Atorvastatin Calcium (Atorvastatin Calcium 20 Mg Tablet) 40 mg PO HS [facility] Stop: 12/06/24 20:59 Enoxaparin Sodium (Enoxaparin Sod Inj 40 Mg/0.4 Ml Syringe) 40 mg SC QDAY [facility] Stop: 11/21/24 08:59 Furosemide (Furosemide Inj 10 Mg/Ml 4ml Vial) 40 mg IVP BIDD YUE Stop: 12/06/24 05:59 Last Admin: 11/06/24 18:43 Dose: 40 mg Ondansetron HCl (Ondansetron Inj 2 Mg/Ml Inj 2 Ml) 4 mg IVP Q6H PRN; Protocol PRN Reason: NAUSEA OR VOMITING Stop: 12/06/24 02:45 Discontinued Medications Aspirin (Aspirin 325 Mg Tablet) 325 mg PO X1 ONE Stop: 11/06/24 02:52 Last Admin: 11/06/24 03:05 Dose: 325 mg Furosemide (Furosemide Inj 10 Mg/Ml 4ml Vial) 40 mg IVP X1 ONE Stop: 11/06/24 02:29 Last Admin: 11/06/24 02:34 Dose: 40 mg Heparin Sodium (Porcine) (Heparin Sod Inj 5000 Unit/Ml Vial) 4,350 unit 60 unit/kg (4350 unit) IV X1 ONE; Protocol Stop: 11/06/24 02:47 Last Admin: 11/06/24 04:03 Dose: Not Given Heparin Sodium (Porcine) (Heparin Sod Inj 5000 Unit/Ml Vial) 2,200 unit 30 unit/kg (2200 unit) IV X1 ONE; Protocol Stop: 11/06/24 02:47 Last Admin: 11/06/24 03:03 Dose: Not Given Heparin Sodium (Porcine) (Heparin Sod Inj 5000 Unit/Ml Vial) 4,000 unit IV X1 ONE; Protocol Stop: 11/06/24 03:15 Last Admin: 11/06/24 03:44 Dose: 4,000 unit Heparin Sodium (Porcine) (Heparin Sod Inj 5000 Unit/Ml Vial) 4,000 unit IV X1 ONE; Protocol Stop: 11/06/24 11:01 Last Admin: 11/06/24 10:57 Dose: 4,000 unit Heparin Sodium/Dextrose (Heparin In D5w Ivpb) 25,000 unit in 250 mls @ 8.709 mls/hr IV .Q24H YUE; Protocol Stop: 11/20/24 02:59 Last Admin: 11/06/24 04:04 Dose: Not Given Heparin Sodium/Dextrose (Heparin In D5w Ivpb) 25,000 unit in 250 mls @ 9.906 mls/hr IV .Q24H YUE; Protocol Stop: 11/20/24 03:29 Last Titration: 11/06/24 17:27 Dose: 0 units/kg/hr, 0 mls/hr Magnesium Sulfate (Magnesium Sulfate Ivpb) 4 gm in 50 mls @ 12.5 mls/hr IV X1 ONE Stop: 11/06/24 13:01 Last Infusion: 11/06/24 14:41 Dose: Infused Assessment & Plan Plan Mr. Rodriguez Is a 44-year-old male with no past medical presented to the ED on 11/06/2024 complaining of progressively worsening shortness of breath for the past 1 week. Pt is admitted for management of acute exacerbation of CHF. Cardiology is consulted for new onset of CHF and concern for ST elevation found on EKG #Nonischemic cardiomyopathy #Dilated cardiomyopathy #Methamphetamine induced cardiomyopathy #HFrEF, EF 15% #Elevated troponins #NSTEMI type II - Patient likely has non-ischemic cardiomyopathy in the setting of chronic methamphetamine use. At the time of admission patient denied any chest pain or pressure. - Patient endorses to severe shortness of breath and orthopnea for the past 1 week -Chest x-ray and CT of chest: Moderate enlargement cardiac contour with prominent vascular congestion and bilateral septal edema -BNP on admission was 1274 and troponins 2.473- > 2.416 -EKG is sinus rhythm with a rate of 85 and incomplete left axis deviation as well as left ventricular hypertrophy -NYHA Class IV -Overnight patient was started on heparin drip and was given a loading dose of aspirin and statin as per [facility] protocol Plan: -Discontinue heparin drip and aspirin as this is NSTEMI type II in the setting of non-ischemic cardiomyopathy -Recommend continuing Lasix 40 mg daily -Patient is not a candidate for ICD because patient has stage IV heart failure and currently not a candidate for CUSTOMS VERIFIER either because no evidence of right bundle branch block -Recommend starting the patient on GDMT with spironolactone, Coreg and lisinopril (although Entresto would be a better choice however due to insurance coverage it is better to start patient on ANNIKA inhibitor that he could afford and be compliant with long-term) -Patient will need to establish care with cardiology upon discharge to monitor his heart function and improvement after starting GDMT for 3 months -Continue strict I's and O's, daily weights, fluid restriction to 1800 mL/day and low-sodium diet. -Pt is cleared to be discharged home from cardiology Thank you for the consult and allowing us to participate in the care of the patient. Cardiology will continue to follow. Assessment and plan discussed with my attending Or[employer] E[employer] Dr. Bryant Boykin (PGY-2)- Internal medicine resident
[2024-11-06 19:39] LABS: Troponin I 2.377 ng/mL (0.0-0.045)
[2024-11-06] MEDS: ATORVASTATIN CALCIUM 20 MG TABLET 40 MG PO (21:53)
[2024-11-07] VITALS (13 sets, daily range): BP systolic 99–138; BP diastolic 57–92; PULSE 62–84; RESP 15–25; TEMP 36.2–36.7; O2SAT 94–98; BMI 29.3
[2024-11-07 05:53] LABS: Basophils # (Auto) 0.1 Thou/mm3 (0.0-0.2); Basophils % (Auto) 1 % (0-2.5); Eosinophils # (Auto) 0.1 Thou/mm3 (0.0-0.5); Eosinophils % (Auto) 2 % (0-10); Hematocrit 48.1 % (41.0-53.0); Hemoglobin 15.9 g/dL (13.5-16.0); Immature Granulocytes Auto 0.03 Thou/mm3 (0.00-0.00); Lymphocytes # (Auto) 1.6 Thou/mm3 (1.0-4.8); Lymphocytes % (Auto) 26 % (10-50); Mean Corpuscular HGB Conc 33.1 g/dl (31.0-37.0); Mean Corpuscular Hemoglobin 31.8 pg (25.0-35.0); Mean Corpuscular Volume 96 fL (80-100); Monocytes # (Auto) 0.6 Thou/mm3 (0.0-0.8); Monocytes % (Auto) 10 % (0-12); Neutrophils # (Auto) 3.7 Thou/mm3 (1.8-7.7); Neutrophils % (Auto) 60 % (37-80); Nucleated Red Blood Cell # 0.00 Thou/mm3 (0.00-0.00); Nucleated Red Blood Cell % 0 /100 WBC (0); Platelet Count 197 Thou/mm3 (140-440); RDW Standard Deviation 45.6 fL (35.1-43.9); Red Blood Count 5.00 Miln/mm3 (4.50-5.90); White Blood Count 6.2 Thou/mm3 (3.8-10.6)
[2024-11-07 06:28] LABS: Alanine Aminotransferase 19 U/L (10-49); Albumin, Serum 4.2 gm/dL (3.5-5.0); Albumin/Globulin Ratio 1.5 (1.2-2.2); Alkaline Phosphatase 109 U/L (46-116); Anion Gap 12 (7-16); Aspartate Amino Transferase 21 U/L (0-34); BUN/Creatinine Ratio 17 Ratio (12-20); Bilirubin,Total 1.4 mg/dL (0.3-1.2); Blood Urea Nitrogen 17 mg/dL (9-23); Calcium 9.3 mg/dL (8.3-10.6); Calcium (Corrected) 9.3 mg/dL (8.5-10.1); Carbon Dioxide 27.1 mMol/L (20.0-31.0); Chloride 104 mMol/L (98-107); Creatinine (Component) 1.0 mg/dL (0.6-1.3); Estimated Creatinine Clearance 94.1 mL/min (>60); Globulin 2.8 gm/dL (2.3-3.5); Glucose 110 mg/dL (74-106); Magnesium 2.4 mg/dL (1.6-2.6); Osmolality,Calculated 287 (275-295); Phosphorous 4.6 mg/dL (2.4-5.1); Potassium 4.1 mMol/L (3.4-5.1); Sodium 143 mMol/L (136-145); Total Protein 7.0 gm/dL (5.7-8.2); eGFR > 60 See Note
[2024-11-07] MEDS: ENOXAPARIN SOD INJ 40 MG/0.4 ML SYRINGE SC (08:45)
[2024-11-07] MEDS: SPIRONOLACTONE 25 MG TABLET PO (08:46)
[2024-11-07] MEDS: ASPIRIN EC 81 MG TABEC PO (08:46)
--- NOTE | 2024-11-07 09:30 | PC.SS ---
Per morning rounding, pt will need a O2 test before d/c. Plan is to d/c today pending the O2 test. Pt is currently at 2L of O2.
[2024-11-07] MEDS: ACETAMINOPHEN 325 MG TABLET 650 MG PO (12:39)
--- NOTE | 2024-11-07 14:22 | ESPR_ITS ---
<Statement entered by Terrie Huitron MD - 11/13/24 07:31> I reviewed above note and agree with findings and plans. I have also personally examined the patient with medicine team and went over assessment and plan with medical team including internal combustion engineer and resident physician. Documentation for date of: 11/07/24 Subjective Subjective Interval history: Patient reports improved breathing this morning. Currently on 2L O2 with SpO2 of 96%. Denies chest pain, pressure, or palpitations. Endorses adequate urine output and had bowel movement without melena or hematochezia. Denies dizziness, nausea, vomiting, or abdominal pain. Tolerating current therapy. Nurse was instructed to ambulate patient today to assess for exertional desaturation. Exam Vital Signs Temp Pulse Resp BP Pulse Ox O2 Del Method O2 Flow Rate 97.3 F 84 15 107/85 H 98 Room Air 3 11/07/24 12:00 11/07/24 12:11 11/07/24 12:00 11/07/24 12:00 11/07/24 12:00 11/07/24 12:00 11/07/24 08:00 Narrative Exam Gen: Awake, in no distress HEENT: NCAT, moist mucous membranes CV: RRR, no murmur, no JVD Resp: Lungs clear to auscultation bilaterally, on 2L O2, no accessory muscle use Abd: Soft, NT/ND, +BS Ext: No LE edema, +pedal pulses Neuro: AOx3, no focal deficits Objective Labs 11/07/24 05:12 11/07/24 05:12 Labs: Laboratory Results - last 24 hr 11/06/24 11/06/24 11/07/24 17:17 19:10 05:12 WBC 6.2 RBC 5.00 Hgb 15.9 Hct 48.1 MCV 96 MCH 31.8 MCHC 33.1 RDW Std Deviation 45.6 H Plt Count 197 Neut % (Auto) 60 Lymph % (Auto) 26 [place] % (Auto) 10 Eos % (Auto) 2 Baso % (Auto) 1 Neut # (Auto) 3.7 Lymph # (Auto) 1.6 [place] # (Auto) 0.6 Eos # (Auto) 0.1 Baso # (Auto) 0.1 Immature Gran # (Auto) 0.03 H Absolute Nucleated RBC 0.00 Immature Gran % 1 H Nucleated RBC % 0 APTT 21.6 L D Sodium 143 Potassium 4.1 Chloride 104 Carbon Dioxide 27.1 Anion Gap 12 BUN 17 Creatinine 1.0 Estim Creat Clear Calc 94.1 eGFR > 60 BUN/Creatinine Ratio 17 Glucose 110 H Calculated Osmolality 287 Calcium 9.3 Corrected Calcium 9.3 Phosphorus 4.6 Magnesium 2.4 Total Bilirubin 1.4 H AST 21 ALT 19 Alkaline Phosphatase 109 Troponin I 2.377 H* Total Protein 7.0 Albumin 4.2 Globulin 2.8 Albumin/Globulin Ratio 1.5 Quality Measures Quality Measures VTE prophylaxis Assessment & Plan Assessment Current Active Medications: Generic Name Dose Route Start Last Admin Trade Name Freq PRN Reason Stop Dose Admin Acetaminophen 650 mg 11/06/24 02:46 11/07/24 12:39 Acetaminophen 325 Mg Tablet PO 12/06/24 02:45 650 mg Q6H PRN Administration PAIN SCALE 1-3 (mild Aspirin 81 mg 11/07/24 09:00 11/07/24 08:46 Aspirin Ec 81 Mg Tabec PO 12/07/24 08:59 81 mg QDAY YUE Administration Atorvastatin Calcium 40 mg 11/06/24 21:00 11/06/24 21:53 Atorvastatin Calcium 20 Mg Tablet PO 12/06/24 20:59 40 mg HS YUE Administration Carvedilol 3.125 mg 11/07/24 17:30 Carvedilol 3.125 Mg Tablet PO 12/07/24 17:29 BIDWM YUE Enoxaparin Sodium 40 mg 11/07/24 09:00 11/07/24 08:45 Enoxaparin Sod Inj 40 Mg/0.4 Ml Syringe SC 11/21/24 08:59 40 mg QDAY YUE Administration Furosemide 40 mg 11/07/24 09:00 11/07/24 08:45 Furosemide 40 Mg Tablet PO 12/07/24 08:59 40 mg QDAY YUE Administration Lisinopril 10 mg 11/08/24 09:00 Lisinopril 2.5 Mg Tablet PO 12/08/24 08:59 QDAY YUE Ondansetron HCl 4 mg 11/06/24 02:46 Ondansetron Inj 2 Mg/Ml Inj 2 Ml IVP 12/06/24 02:45 Q6H PRN NAUSEA OR VOMITING Protocol Spironolactone 25 mg 11/07/24 09:00 11/07/24 08:46 Spironolactone 25 Mg Tablet PO 12/07/24 08:59 25 mg QDAY YUE Administration Plan 44-year-old male with history of hypertension and methamphetamine use disorder (last use ~1 month ago), admitted for acute decompensated heart failure with elevated troponin and concern for NSTEMI likely type II, now improving with diuresis and pending Echo. #Non Ischemic Cardiomyopathy New diagnosis in setting of NYHA Class IV symptoms and meth use (last use ~1 month ago) Echo shows dilated cardiomyopathy with LVEDD 8.0 cm, EF 15%, severely increased LA volume (63.3 mL/m?), moderately reduced RV systolic function, and [id number] MR. Global hypokinesis confirmed. Patient improving on diuresis, on 2L O2 with sats 96%, no orthopnea or edema. BNP 1274, CXR: pulmonary congestion, CT: LA/LV dilation + RLL infiltrate, now tolerating ambulation and breathing better. Plan: * Continue IV Lasix 40 mg daily * Strict I&Os, daily weights, fluid restriction 1800 mL/day * Initiated GDMT per cardiology: * Carvedilol 3.125 mg BID * Lisinopril 5 mg today, then 10 mg starting tomorrow * Spironolactone 25 mg daily (adjusted from BID due to borderline BP) * Ambulate daily and monitor for exertional desaturation * Not a candidate for ICD at this time (new diagnosis, NYHA IV) * Not a BLOW DOWN OPERATOR candidate (no RBBB) * Follow-up with cardiology in 3 months for repeat EF and long-term management #NSTEMI (Type I vs II) Elevated troponins (2.473 --> 2.416 --> 2.259 --> 2.377) in absence of chest pain or ischemic symptoms EKG: Sinus rhythm, incomplete LBBB, LVH Plan: * Heparin drip and aspirin discontinued per cardiology * Continue atorvastatin 40 mg daily * No ACS workup needed unless symptoms develop #Hypertension Chronic, likely uncontrolled, not on meds. BP mildly elevated on admission (133/96). Currently 107/85 Plan: * Monitor BP closely * Continue GDMT agents (lisinopril, carvedilol) * Titrate as tolerated after discharge #Methamphetamine Use Disorder Reported last use ~1 month ago, Utox negative, no signs of withdrawal Plan: * Counseling provided * Consider social work referral for substance use support * Monitor for withdrawal symptoms #Possible Superimposed Pneumonia CT chest showed possible RLL infiltrate Plan: * Monitor for fevers, sputum, leukocytosis * Hold antibiotics unless clinical suspicion rises #Hypomagnesemia (resolved) Mg repleted to 2.4 Plan: * No further supplementation needed * Monitor daily labs Health Maintenance Disposition: Medically cleared for discharge home by cardiology; Will discharge patient tomorrow after monitoring Bp Lines: PIV Diet: Low sodium GI prophylaxis: Not indicated DVT prophylaxis: Lovenox Code status: Full ----- Plan discussed with attending physician Dr. Elana Chacon MD PGY-1 Internal Medicine
[2024-11-07] MEDS: ATORVASTATIN CALCIUM 20 MG TABLET 40 MG PO (20:07)
[2024-11-08] VITALS (8 sets, daily range): BP systolic 91–129; BP diastolic 53–88; PULSE 67–87; RESP 18–23; TEMP 36.1–36.5; O2SAT 95–98; BMI 28.2
--- NOTE | 2024-11-08 03:39 | EKG_ITS ---
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
--- NOTE | 2024-11-08 03:45 | PC.NURSE ---
MT called to report that pt was having PVCs, couplets, quadgeminy, Pt reports no chest pain or discomfort, DR. Prieto was made aware. EKG ordered for pt.
--- NOTE | 2024-11-08 04:43 | PC.NURSE ---
MT called to report that pt was Afib for 4 seconds, Dr. Prieto was made aware. MD stated that he is not concerned if pt is not complaining of chest pain. RN. explained to MD that pt is not complaining of any chest pain or discomfort at this time. Pt was sleeping when commercial insurance underwriter got in the room to ask if he was if he was feeling any chest pain/discomfort. Pt stated that he was okay and that he was just trying to sleep.
[2024-11-08 06:09] LABS: Basophils # (Auto) 0.1 Thou/mm3 (0.0-0.2); Basophils % (Auto) 1 % (0-2.5); Eosinophils # (Auto) 0.2 Thou/mm3 (0.0-0.5); Eosinophils % (Auto) 3 % (0-10); Hematocrit 46.3 % (41.0-53.0); Hemoglobin 15.5 g/dL (13.5-16.0); Immature Granulocytes Auto 0.05 Thou/mm3 (0.00-0.00); Lymphocytes # (Auto) 2.2 Thou/mm3 (1.0-4.8); Lymphocytes % (Auto) 34 % (10-50); Mean Corpuscular HGB Conc 33.5 g/dl (31.0-37.0); Mean Corpuscular Hemoglobin 32.4 pg (25.0-35.0); Mean Corpuscular Volume 97 fL (80-100); Monocytes # (Auto) 0.7 Thou/mm3 (0.0-0.8); Monocytes % (Auto) 11 % (0-12); Neutrophils # (Auto) 3.2 Thou/mm3 (1.8-7.7); Neutrophils % (Auto) 51 % (37-80); Nucleated Red Blood Cell # 0.00 Thou/mm3 (0.00-0.00); Nucleated Red Blood Cell % 0 /100 WBC (0); Platelet Count 187 Thou/mm3 (140-440); RDW Standard Deviation 45.2 fL (35.1-43.9); Red Blood Count 4.79 Miln/mm3 (4.50-5.90); White Blood Count 6.3 Thou/mm3 (3.8-10.6)
[2024-11-08 06:43] LABS: Alanine Aminotransferase 15 U/L (10-49); Albumin, Serum 4.0 gm/dL (3.5-5.0); Albumin/Globulin Ratio 1.4 (1.2-2.2); Alkaline Phosphatase 102 U/L (46-116); Anion Gap 12 (7-16); Aspartate Amino Transferase 20 U/L (0-34); BUN/Creatinine Ratio 15 Ratio (12-20); Bilirubin,Total 1.2 mg/dL (0.3-1.2); Blood Urea Nitrogen 15 mg/dL (9-23); Calcium 9.2 mg/dL (8.3-10.6); Calcium (Corrected) 9.2 mg/dL (8.5-10.1); Carbon Dioxide 25.0 mMol/L (20.0-31.0); Chloride 103 mMol/L (98-107); Creatinine (Component) 1.0 mg/dL (0.6-1.3); Estimated Creatinine Clearance 92.4 mL/min (>60); Globulin 2.8 gm/dL (2.3-3.5); Glucose 99 mg/dL (74-106); Magnesium 1.8 mg/dL (1.6-2.6); Osmolality,Calculated 280 (275-295); Phosphorous 4.1 mg/dL (2.4-5.1); Potassium 4.4 mMol/L (3.4-5.1); Sodium 140 mMol/L (136-145); Total Protein 6.8 gm/dL (5.7-8.2); eGFR > 60 See Note
--- NOTE | 2024-11-08 07:33 | ESDS_ITS ---
<Statement entered by Terrie Huitron MD - 11/13/24 07:32> I reviewed above note and agree with findings and plans. I have also personally examined the patient with medicine team and went over assessment and plan with medical team including web design intern and resident physician. Planned Discharge Date 11/08/24 DS: Providers Provider Date of admission: 11/06/24 02:46 Primary care physician: Physician No Primary/Family Admitting Provider: Ana Huggins MD Attending Provider on Admission: Ana Huggins MD Consults: 11/06/24 03:01 Consult to Cardiology Stat Comment: Concern for ACS, CHF exacerbation Consulting Provider: Colby Hurtado Attending Provider on DC: Dr. Elana PATRICK Discharging Provider: RESIDENT Darian DS: Diagnosis Problem List Completed Was Problem List Reviewed/Reconciled?: Yes Hospital Course Hospital Course Hospital course: Mr. Rodriguez is a 44-year-old male with a history of hypertension and methamphetamine use disorder (last use ~1 month ago), who presented to the ED with progressively worsening shortness of breath for one week, associated with orthopnea and paroxysmal nocturnal dyspnea. He denied any chest pain, palpitations, or fever. On arrival, he was tachypneic but hemodynamically stable. Workup showed BNP 1274, troponin 2.473, and CXR/CT chest concerning for pulmonary edema and cardiomegaly. POCUS and formal transthoracic echocardiogram revealed dilated cardiomyopathy, EF 15%, LVEDD 8 cm, severely increased LA volume (63.3 mL/m?), moderately decreased RV function, and [id number] mitral regurgitation. 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 Troponins trended mildly down, but with no chest pain or EKG changes; the event was determined to be a Type II NSTEMI due to demand ischemia from acute decompensated heart failure. He was initially started on aspirin and heparin drip in the ED but both were discontinued after cardiology evaluation. Patient was started on guideline-directed medical therapy (GDMT) including carvedilol 3.125 mg BID, lisinopril 5 mg daily, spironolactone 25 mg daily, and atorvastatin 40 mg daily. Diuresis was achieved with IV Lasix 40 mg daily. He had improved breathing with stable oxygenation on 2L nasal cannula, no exertional desaturation, and no ongoing symptoms. His blood pressure remained stable during hospitalization. Methamphetamine use counseling was provided, and social work was consulted for outpatient follow-up support. He is not a candidate for ICD or ENAMEL FINISHER at this time and will require outpatient follow-up with cardiology in 3 months for reassessment of EF and possible device therapy. He was medically cleared for discharge by cardiology. ? pt states that he has hx of mini strokes in the past year that were never reported to healthcare provider, he had R sided deficits of R face, UE and LE. on exam he has no focal neurological deficits, reccomend outpatient workup and evaluation of possible TIAs in the past, he is on ASA and statin. Pt is stable and medically cleared for discharge. 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 Percent #NSTEMI Type II #Hypertension #Methamphetamine Use Disorder #Resolved Hypomagnesemia #Rule Out Superimposed Pneumonia Discharge Plans: You have been prescribed new medications for heart failure as you were found to have ejection fraction of 15% Take aspirin 81 mg once daily, atorvastatin 40 mg at night, carvedilol 3.25 mg twice daily, Lasix 40 mg once daily, lisinopril 10 mg once daily, spironolactone 25 mg once daily Hold your blood pressure medications which include carvedilol 3.125 mg twice daily, lisinopril 5 mg once daily and spironolactone 25 mg in case your blood pressure is below 80/60 mmHg Monitor your weight every day at home on a weight machine and if you gain weight due to swelling of your legs or shortness of breath seek medical attention with the nurses educator as you might need more Lasix/diuretic Avoid use of illicit drugs which can affect your heart, kidneys and liver Follow-up with your PCP as outpatient within a week Follow-up with your nurses educator as outpatient within a week Please seek referral to neurologist for evaluation of neurological symptoms. In case of emergency, call 911 and come back to the ED In case you do not have primary care doctor, call and make an appointment in our [facility] [phone] located at [address] [place] [address] [address] Case discussed with my attending Dr. Elana Cronin MD PGY-1 Time Spent with Patient Time attestation: Total time spent providing and/or coordinating discharge services: Time spent: Greater than 30 minutes Exam Vital Signs Temp Pulse Resp BP Pulse Ox O2 Del Method O2 Flow Rate 96.9 F 67 20 112/88 H 95 Room Air 3 11/08/24 04:00 11/08/24 04:00 11/08/24 04:00 11/08/24 04:00 11/08/24 04:00 11/08/24 00:00 11/07/24 08:00 Narrative Exam General:?Awake, alert, no acute distress HEENT:?NC/AT, moist mucous membranes Cardiac:?RRR, no murmurs, no JVD Lungs:?Clear to auscultation bilaterally, no rales, no crackles Abdomen:?Soft, NT/ND, normal bowel sounds Extremities:?No edema, +pedal pulses bilaterally Neuro:?AOx3, no focal deficits Discharge Plan Plan Patient Disposition: HOME (Self Care) Patient condition on transfer: Stable Care Plan Goals: You have been prescribed new medications for heart failure as you were found to have ejection fraction of 15% Take aspirin 81 mg once daily, atorvastatin 40 mg at night, carvedilol 3.25 mg twice daily, Lasix 40 mg once daily, lisinopril 10 mg once daily, spironolactone 25 mg once daily Hold your blood pressure medications which include carvedilol 3.125 mg twice daily, lisinopril 5 mg once daily and spironolactone 25 mg in case your blood pressure is below 80/60 mmHg Monitor your weight every day at home on a weight machine and if you gain weight due to swelling of your legs or shortness of breath seek medical attention with the nurses educator as you might need more Lasix/diuretic Avoid use of illicit drugs which can affect your heart, kidneys and liver Follow-up with your PCP as outpatient within a week Follow-up with your nurses educator as outpatient within a week Please seek referral to neurologist for evaluation of neurological symptoms. In case of emergency, call 911 and come back to the ED In case you do not have primary care doctor, call and make an appointment in our [facility] [phone] located at [address] [place] [address] [address] Prescriptions/Referrals Prescriptions/Med Rec: New atorvastatin 40 mg tablet 40 mg PO HS Qty: 90 0RF carvedilol 3.125 mg Tablet 3.125 mg PO BIDWM Qty: 90 0RF Rx Instructions: Hold if blood pressure drops below 80/60 mmHg furosemide 40 mg Tablet 40 mg PO QDAY Qty: 90 0RF aspirin 81 mg Tablet,Delayed Release (Dr/Ec) 81 mg PO QDAY Qty: 90 0RF spironolactone 25 mg Tablet 25 mg PO QDAY Qty: 90 0RF Rx Instructions: Hold if blood pressure drops below 80/60 mmHg lisinopril 10 mg tablet 10 mg PO QDAY Qty: 90 0RF Referrals: Poli Walton MD [Resident] - No Primary/Family,Physician [Primary Care Provider] - Colby Hurtado MD [Physician] - Patient/Caregiver Discharge Instructions Discharge Activity: activity as tolerated Education Materials: Heart Failure Meds, Low-Salt Choices, Heart Failure: Track ing Your Weight, Coping with Heart Failure, Heart Failure Dc, Eating Heart- Healthy Foods Print Language: Malay Stand Alone Forms: Estella Award Info., Patient Portal Info Letter Discharge Order Discharge Orders: Discharge (Routine); Ordered 11/08/24 Ordered By: Poli Walton Quality Discharge Quality Measures VTE prophylaxis
[2024-11-08] MEDS: SPIRONOLACTONE 25 MG TABLET PO (09:17)
[2024-11-08] MEDS: ASPIRIN EC 81 MG TABEC PO (09:17)
[2024-11-08] MEDS: ENOXAPARIN SOD INJ 40 MG/0.4 ML SYRINGE SC (09:20)
== END 2024-11-08 12:37 | disposition home or self-care (01) | DRG 194 ==
LOC: SERX 11-06 02:39 → SERHOLD 11-06 03:12 → S2NX 11-07 02:59 → S3NX 11-07 10:57
PROVIDERS: Physician Assistant; Admitting Provider Student in an Organized Health Care Education/Training Program; Emergency Provider Emergency Medicine; Visit Provider Student in an Organized Health Care Education/Training Program
DX: I11.0 Hypertensive heart disease with heart failure (principal); I50.9 Heart failure, unspecified; F15.10 Other stimulant abuse, uncomplicated; E83.42 Hypomagnesemia; I34.0 Nonrheumatic mitral (valve) insufficiency; I44.7 Left bundle-branch block, unspecified; I21.A1 Myocardial infarction type 2; I42.0 Dilated cardiomyopathy; I42.7 Cardiomyopathy due to drug and external agent; I50.20 Unspecified systolic (congestive) heart failure; Z79.82 Long term (current) use of aspirin; Z79.899 Other long term (current) drug therapy
CPT/HCPCS: 36415; 71046; 71250; 80053; 80061; 80307; 83036; 83605; 83735; 83880; 84100; 84145; 84484; 85025; 85610; 85730; 87811; 93005; 93225; 93306; 96365; 96366; 96375; 96376; 99284; J1644; J1650; J1938; J3475; A9270

== ENCOUNTER 2025-02-03 23:14 | Emergency (ER) | payer MEDICAID, SELFPAY ==
[2025-02-03 23:15] VITALS: BMI 29.0
[2025-02-03 23:48] VITALS: BP 124/87; PULSE 76; RESP 24; TEMP 36.9; O2SAT 97
--- NOTE | 2025-02-03 23:56 | XR_ITS ---
EXAMINATION: PA lateral chest 3 views TECHNIQUE: Upright PA lateral chest 2 views Date and time: February 04, 2025, 0003 hours, comparison November 06, 2024 INDICATIONS: Shortness of breath beginning 2 days ago. FINDINGS: Marked enlargement cardiac contour Prominent vascular congestion including central vascular engorgement Perihilar basilar edema Intact osseous structures IMPRESSION: Marked enlargement cardiac contour with mild to moderate CHF
--- NOTE | 2025-02-03 23:58 | PD.EDRME ---
Rapid Medical Screening Exam RME Arrival date/time: 02/03/25 23:14 44-year-old male with a history of CHF reports with complaints of shortness of breath Chief Complaint: Shortness of Breath/Dyspnea Time Seen by Provider: 02/03/25 23:32 Vital signs: Vital Signs Temperature 98.4 F 02/03/25 23:48 Pulse Rate 76 02/03/25 23:48 Respiratory Rate 24 H 02/03/25 23:48 Blood Pressure 124/87 H 02/03/25 23:48 Pulse Oximetry (%) 97 02/03/25 23:48 Oxygen Delivery Method Room Air 02/03/25 23:48
[2025-02-04] VITALS (11 sets, daily range): BP systolic 105–164; BP diastolic 66–96; PULSE 65–87; RESP 18–96; TEMP 36.7–37.1; O2SAT 94–98; BMI 29.0
[2025-02-04 00:24] LABS: Basophils # (Auto) 0.1 Thou/mm3 (0.0-0.2); Basophils % (Auto) 1 % (0-2.5); Eosinophils # (Auto) 0.1 Thou/mm3 (0.0-0.5); Eosinophils % (Auto) 2 % (0-10); Hematocrit 40.8 % (41.0-53.0); Hemoglobin 13.8 g/dL (13.5-16.0); Immature Granulocytes Auto 0.02 Thou/mm3 (0.00-0.00); Lymphocytes # (Auto) 2.2 Thou/mm3 (1.0-4.8); Lymphocytes % (Auto) 32 % (10-50); Mean Corpuscular HGB Conc 33.8 g/dl (31.0-37.0); Mean Corpuscular Hemoglobin 32.2 pg (25.0-35.0); Mean Corpuscular Volume 95 fL (80-100); Monocytes # (Auto) 0.5 Thou/mm3 (0.0-0.8); Monocytes % (Auto) 8 % (0-12); Neutrophils # (Auto) 4.0 Thou/mm3 (1.8-7.7); Neutrophils % (Auto) 58 % (37-80); Nucleated Red Blood Cell # 0.00 Thou/mm3 (0.00-0.00); Nucleated Red Blood Cell % 0 /100 WBC (0); Platelet Count 146 Thou/mm3 (140-440); RDW Standard Deviation 46.8 fL (35.1-43.9); Red Blood Count 4.29 Miln/mm3 (4.50-5.90); White Blood Count 7.0 Thou/mm3 (3.8-10.6)
[2025-02-04 00:48] LABS: Alanine Aminotransferase 24 U/L (10-49); Albumin, Serum 4.2 gm/dL (3.5-5.0); Albumin/Globulin Ratio 1.9 (1.2-2.2); Alkaline Phosphatase 104 U/L (46-116); Anion Gap 12 (7-16); Aspartate Amino Transferase 30 U/L (0-34); B-Type Natriuretic Peptide 1208 pg/mL (0-100); BUN/Creatinine Ratio 16 Ratio (12-20); Bilirubin,Total 1.1 mg/dL (0.3-1.2); Blood Urea Nitrogen 16 mg/dL (9-23); Calcium 8.8 mg/dL (8.3-10.6); Calcium (Corrected) 8.8 mg/dL (8.5-10.1); Carbon Dioxide 24.4 mMol/L (20.0-31.0); Chloride 108 mMol/L (98-107); Creatinine (Component) 1.0 mg/dL (0.6-1.3); Estimated Creatinine Clearance 93.6 mL/min (>60); Globulin 2.2 gm/dL (2.3-3.5); Glucose 105 mg/dL (74-106); Osmolality,Calculated 288 (275-295); Potassium 4.1 mMol/L (3.4-5.1); Sodium 144 mMol/L (136-145); Total Protein 6.4 gm/dL (5.7-8.2); eGFR > 60 See Note
[2025-02-04 00:52] LABS: Troponin I 0.333 ng/mL (0.0-0.045)
--- NOTE | 2025-02-04 03:43 | PD.EDSOB ---
ED SOB =RME/HPI General Chief Complaint: Shortness of Breath/Dyspnea Stated Complaint: SOB Time Seen by Provider: 02/03/25 23:32 Arrival date/time: 02/03/25 23:14 RME / HPI RME / HPI Narrative: 02/03/25 23:14 44-year-old male with a history of CHF reports with complaints of shortness of breath -------- Dr. Geiger?s Main ED Evaluation: 44yo male with a history of CHF, HTN presents to the ED for a chief complaint of shortness of breath x 2 days. Patient states he has been unable to sleep due to being short of breath. Patient denies any chest pain, cough, fever, chills, or any other associated symptoms. Patient has been compliant with his medications. NKA. Related Data Home Medications ?Medication ?Instructions ?Recorded ?Confirmed hydroxyzine HCl 10 mg tablet 10 mg PO ##0 01/16/12 Previous Rx's ?Medication ?Instructions ?Recorded aspirin 81 mg tablet,delayed 81 mg PO QDAY #90 tabs 11/07/24 release atorvastatin 40 mg tablet 40 mg PO HS #90 tabs 11/07/24 carvedilol 3.125 mg tablet 3.125 mg PO BIDWM #90 tabs 11/07/24 furosemide 40 mg tablet 40 mg PO QDAY #90 tabs 11/07/24 lisinopril 10 mg tablet 10 mg PO QDAY #90 tabs 11/07/24 spironolactone 25 mg tablet 25 mg PO QDAY #90 tabs 11/07/24 Allergies Allergy/AdvReac Type Severity Reaction Status Date / Time No Known Allergies Allergy Verified 02/03/25 23:18 Review of Systems Review of Systems Systems Reviewed: All systems reviewed, normal except as documented Past Medical History Past Medical History CARDIAC: Positive Cardiac Disorders and Hypertension; Negative Congestive Heart Failure RESPIRATORY: Negative Chronic Obstructive Pulmonary Disease (COPD) or Asthma GENITOURINARY: Negative Renal Disease ENDOCRINE: Negative Diabetes Mellitus Type 1 or Diabetes Mellitus Type 2 HEMATOLOGIC: Negative Sickle Cell Disease Social History SMOKING STATUS: Never smoker ED Exam Narrative Physical exam: Generally patient is alert dyspneic and tachypneic, heart regular rate and rhythm, lungs show distant breath sounds bilaterally with fair to good air exchange, abdomen is soft nondistended nontender, extremities show minimal pitting peripheral edema at the feet, neurologic exam no ataxia without focal motor deficits Course Course Course Narrative: CXR is ordered for determining the etiology of shortness of breath. Quality Measures none Orders Category Date Time Status EKG (ED ONLY) *Do not use* NOW Care 02/03/25 23:57 Completed EKG (ED Only) Stat Exams 02/03/25 23:57 Ordered XR chest 2V Stat Exams 02/03/25 23:56 Taken BNP [B-Type Natriuretic Peptide] Stat Lab 02/03/25 23:56 Completed CBC Stat Lab 02/03/25 23:56 Completed CMP [Comprehensive Metabolic Panel] Stat Lab 02/03/25 23:56 Completed Drug Screen,Urine Stat Lab 02/04/25 03:53 Ordered Troponin I Stat Lab 02/03/25 23:56 Completed Furosemide Inj [Lasix Inj] Med 02/04/25 03:54 Discontinued 80 mg IVP X1 ONE Vital Signs Vital signs: Vital Signs Temperature 98.4 F 02/03/25 23:48 Pulse Rate 76 02/03/25 23:48 Respiratory Rate 24 H 02/03/25 23:48 Blood Pressure 124/87 H 02/03/25 23:48 Pulse Oximetry (%) 97 02/03/25 23:48 Oxygen Delivery Method Room Air 02/03/25 23:48 Shortness of Breath / Dyspnea MDM Narrative MDM Narrative:: Scribe Attestation: 02/04/25 - Leanna Medrano am scribing for and in the presence of Dr. Geiger. Patient's troponin and BNP were elevated here in the emergency room tonight. Patient was hospitalized in October of this year and found to have methamphetamine induced nonischemic cardiomyopathy with an ejection fraction of 15%. Patient was started on Coreg spironolactone Lasix and lisinopril at that time. Patient states that he is compliant with his medications. EKG tonight shows normal sinus rhythm at a rate of 78 with unifocal PVCs and an intraventricular conduction delay. Patient will be given Lasix 80 mg IV. Case was discussed with the hospitalist and patient will require hospitalization for further treatment and evaluation. Chest x-ray showed evidence for vascular congestion with cardiomegaly. Patient data External records reviewed:: [facility] previous records (Per chart review, patient was admitted here on 11/06/24 for new onset CHF.) Clinical information provided by:: patient Social determinants that could affect healthcare access:: substance use (prior methamphetamine use) Patient has the following chronic illnesses:: CHF, HTN How is presenting disease/condition affected by chronic disease/condition?: exacerbated by Evaluation data The following diagnostics were reviewed and interpreted by me:: lab results, radiology exam(s) and EKG tracing(s) Lab and/or radiology exams considered but not ordered:: none Interpretation Summary: See MDM Medications / Prescriptions Medications or Prescriptions considered but not ordered:: none Medication administrations:: Medication Administration History Discontinued Medications Furosemide (Furosemide Inj 10 Mg/Ml 4ml Vial) 80 mg IVP X1 ONE Stop: 02/04/25 03:55 see above, if any Consultations Consultation(s) initiated? (list below): Yes Diagnosis Shortness of Breath Differential Diagnosis: other (See MDM) Most likely diagnosis given after review of the tests above:: see clinical impression below Admission Indicated Admission indicated?: indicated Admission Request Was there a request for admission?: Yes Admission Attestation Admission request attestation: Discussed case with [] from Hospitalist service regarding admission. Discussed patients ED course, exam findings, labs, and radiology results. The Hospitalist [agrees,declines] to accept the patient for admission. Disposition Plan Disposition Plan: Admit Critical Care Time Critical Care Time Critical Care Time: Yes Total Critical Care Time (min.): 35 Attestation: Excluding other billable procedures Discharge Plan Plan Patient Disposition: Admit Acute Care w/in Hospital Prescriptions/Referrals Prescriptions/Med Rec: No Action hydroxyzine HCl 10 MG tablet 10 mg PO Qty: 0 atorvastatin 40 mg tablet 40 mg PO HS Qty: 90 0RF carvedilol 3.125 mg Tablet 3.125 mg PO BIDWM Qty: 90 0RF Rx Instructions: Hold if blood pressure drops below 80/60 mmHg furosemide 40 mg Tablet 40 mg PO QDAY Qty: 90 0RF aspirin 81 mg Tablet,Delayed Release (Dr/Ec) 81 mg PO QDAY Qty: 90 0RF spironolactone 25 mg Tablet 25 mg PO QDAY Qty: 90 0RF Rx Instructions: Hold if blood pressure drops below 80/60 mmHg lisinopril 10 mg tablet 10 mg PO QDAY Qty: 90 0RF Referrals: No Primary/Family,Physician [Primary Care Provider] - In 1 week Problem List Clinical Impression: Congestive heart failure, Cardiomyopathy, Methamphetamine use Patient/Caregiver Discharge Instructions Print Language: Lao Stand Alone Forms: Estella Award Info., Patient Portal Info Letter
--- NOTE | 2025-02-04 05:05 | XR_ITS ---
Examination: Abdomen sonogram, Limited Date and time of exam: February 04, 2025, 0716 hours INDICATIONS: Heart failure shortness of breath epigastric pain today Technique: Real-time dorantes scale transabdominal sonographic images of the upper abdomen obtained. Findings: Normal gallbladder Normal common bile duct 0.4 cm Pancreatic head 2.0 cm Liver 16.0 cm fatty infiltration no focal liver lesions Normal hepatopetal portal venous flow Patent IVC IMPRESSION: Normal gallbladder Normal common bile duct Mild hepatomegaly
[2025-02-04] MEDS: BUMETANIDE INJ 0.25 MG/ML VIAL 4 ML 2 MG IVP (05:19)
--- NOTE | 2025-02-04 05:27 | PD.RESHP ---
Documentation for date of: 02/04/25 [facility] History of Present Illness Chief complaint: Shortness of breath History of present illness: This is a 44 years old male with past medical history of nonischemic dilated cardiomyopathy, methamphetamine usage, EF 15% presented to the ED with complaints of shortness of breath since last 3 days. He complained that he has been having worsening shortness of breath since last 3 days associated with orthopnea and paroxysmal nocturnal dyspnea. He also endorses occasional palpitations which are short-lived for 3 to 5 seconds but denies any dizziness or loss of consciousness. He denies any chest pain, chest tightness, recent fever, urinary frequency, urgency, increased sputum production, cough. He endorses his he has been drinking more water than usual but denies any decreased urine output. He also endorses his abdomen is getting distended since last 2 days but denies any abdominal pain, vomiting, nausea, diarrhea. He says that he has not been using methamphetamine since last discharge and also endorses that he is compliant with his heart failure medications. Today ED visit vitals BP 124/87, pulse rate 76, respirate 24, temperature 98.4 saturating 97% on room air. Pertinent lab findings are troponin 0.333, BNP 1208. Imaging findings chest x-ray showing dilated left atrium and ventricle with bilateral interstitial lung thickening. Treatment given in ED bumetanide 2 mg. Past medical history: He had a hospitalization in October 2024 with similar complaints of shortness of breath where he got diagnosed with nonischemic dilated cardiomyopathy most probably due to methamphetamine usage. Echo at that time showed an ejection fraction of 15%, severely dilated left atrium 63.3 mL/m? and global left systolic dysfunction,LVEDD 8cm. He says he had 3 episodes of TIA spells in the last 1 years but not officially diagnosed at the hospital. Social history: Used to use methamphetamine 1 year back but denies current usage. Denies alcohol and other smoking Family history: Noncontributory Allergies: NKDA Review of Systems Review of Systems Systems Reviewed: All systems reviewed, normal except as documented Exam Vital Signs Temp Pulse Resp BP Pulse Ox O2 Del Method 98.4 F 75 20 164/96 H 94 L Room Air 02/03/25 23:48 02/04/25 05:19 02/04/25 05:11 02/04/25 05:19 02/04/25 05:11 02/04/25 05:11 Narrative Exam GENERAL: NAD, AAOx3 HEENT: Moist mucosa. Eyes open, symmetrical, & clear CARDIO: Regular rhythm Noted. No Murmurs. PULM: No noted coughing/dyspnea CTA B/L, fine crackles in the Rt lower lung. GI: Abdomen soft,distended, no tenderness SKIN/MSK/EXT: No wounds/rashes/amputations, no pain on palpation.Edema on B/L ankles 1+. Pedal pulses present B/L NEURO: AAOx3, no focal neuro deficits, able to move all 4 extremities Results: Labs 02/04/25 05:12 02/04/25 00:13 Labs: Short CBC 02/04/25 Range/Units 00:13 WBC 7.0 (3.8-10.6) Thou/mm3 Hgb 13.8 (13.5-16.0) g/dL Hct 40.8 L (41.0-53.0) % Plt Count 146 (140-440) Thou/mm3 BMP 02/04/25 00:13 Sodium 144 Potassium 4.1 Chloride 108 H Carbon Dioxide 24.4 BUN 16 Creatinine 1.0 Glucose 105 Calcium 8.8 Cardiac Enzymes 02/04/25 Range/Units 00:13 Troponin I 0.333 H* (0.0-0.045) ng/mL Liver Function 02/04/25 Range/Units 00:13 Total Bilirubin 1.1 (0.3-1.2) mg/dL AST 30 (0-34) U/L ALT 24 (10-49) U/L Alkaline Phosphatase 104 (46-116) U/L Albumin 4.2 (3.5-5.0) gm/dL Quality Measures Quality Measures VTE prophylaxis Medications Home Medications and Allergies Home Medications ?Medication ?Instructions ?Recorded ?Confirmed ?Type hydroxyzine HCl 10 mg tablet 10 mg PO ##0 01/16/12 History Allergies Allergy/AdvReac Type Severity Reaction Status Date / Time No Known Allergies Allergy Verified 02/03/25 23:18 Visit Medications Acetaminophen (Acetaminophen 325 Mg Tablet) 650 mg PO Q6H PRN PRN Reason: Fever >101.5 Stop: 03/06/25 04:49 Acetaminophen (Acetaminophen 325 Mg Tablet) 650 mg PO Q6H PRN PRN Reason: PAIN SCALE 1-3 (mild Stop: 03/06/25 04:54 Aspirin (Aspirin Ec 81 Mg Tabec) 81 mg PO QDAY YUE Stop: 03/06/25 08:59 Atorvastatin Calcium (Atorvastatin Calcium 20 Mg Tablet) 40 mg PO HS YUE Stop: 03/06/25 20:59 Bumetanide (Bumetanide Inj 0.25 Mg/Ml Vial 4 Ml) 2 mg IVP QDAY YUE Stop: 03/06/25 05:09 Last Admin: 02/04/25 05:19 Dose: 2 mg Carvedilol (Carvedilol 3.125 Mg Tablet) 3.125 mg PO BID YUE Stop: 03/06/25 08:59 Heparin Sodium (Porcine) (Heparin Sod Inj 5000 Unit/Ml Vial) 5,000 unit SC BID YUE Stop: 02/18/25 08:59 Lisinopril (Lisinopril 20 Mg Tablet) 10 mg PO QDAY YUE Stop: 03/06/25 08:59 Ondansetron HCl (Ondansetron Inj 2 Mg/Ml Inj 2 Ml) 4 mg IVP Q6H PRN; Protocol PRN Reason: NAUSEA OR VOMITING Stop: 03/06/25 04:49 Sennosides (Senna Tablet) 1 tab PO QDAY PRN; Protocol PRN Reason: constipation Stop: 03/06/25 04:54 Spironolactone (Spironolactone 25 Mg Tablet) 25 mg PO QDAY YUE Stop: 03/06/25 08:59 Discontinued Medications Bumetanide (Bumetanide Inj 0.25 Mg/Ml Vial 4 Ml) 2 mg IVP QDAY YUE Stop: 03/06/25 08:59 Bumetanide (Bumetanide Inj 0.25 Mg/Ml Vial 4 Ml) 2 mg IVP QDAY YUE Stop: 03/06/25 08:59 Furosemide (Furosemide Inj 10 Mg/Ml 4ml Vial) 80 mg IVP X1 ONE Stop: 02/04/25 03:55 Last Admin: 02/04/25 05:10 Dose: Not Given Assessment & Plan Plan This is a 44 years old male with past medical history of nonischemic dilated cardiomyopathy, methamphetamine usage, EF 15% presented to the ED with complaints of worsening shortness of breath since last 3 days. He has been admitted for worsening of his heart failure. # Nonischemic dilated cardiomyopathy # Acute decompensated heart failure.. # Acute hypoxic respiratory failure # Heart failure with reduced ejection fraction 15% # Hypertension #NSTEMI type II Worsening of shortness of breath, orthopnea, PND. Respiratory rate 24 and dyspneic on even standing. History of amphetamine use and prior hospitalization with similar complaints in October. Currently NYHA class IV On examination fine bilateral crackles on lung bases and distended abdomen but no JVD distention. Ejection fraction on 11/06 shown 15%, global left systolic dysfunction, severely dilated left atrium. LVEDD 8cm, left atrium 63.3 mL/m?. Mild to moderate mitral regurgitation. Today troponin 0.333, BNP 1208 Chest x-ray showing dilated left atrium and left ventricle and bilateral interstitial lung thickening. ?Starting on bumetanide 2 mg daily ?Trend troponin, fluid restriction 1500 mL, strict inputs and outputs ?Daily weights and cardiac diet. ?Resuming his home medication aspirin 81 mg daily, lisinopril 10 mg daily, spironolactone 25 mg daily, carvedilol 3.125 mg twice daily, atorvastatin 40 mg daily. ?Consulted graphite disk assembler Dr. Hurtado. ?Ordered liver ultrasound-because of his abdominal distention, # Hx of Substance abuse History of methamphetamine abuse. ?Last used 1 year ago according to the patient. Code status: Full DVT prophylaxis: Heparin Diet: Cardiac consistent Funk: None Lines: PIV Supplemental O2: Nasal canula upto 5L Disposition: Tele I discussed this case with my senior Dr. Trevino and my attending Dr. Mariposa Gilbert MD PGY1 Attending Provider Attestation/Addendum After examination of the patient and review of the clinical data I feel that this patient needs admission to the hospital for further treatment/evaluation. Plan of care discussed with patient and is in agreement. I Karishma Monge MD, attest that I was physically present for dominguez portions of evaluation, and examined patient, labs and imagings and plan of care were discussed with IM residents team, and I agree with the findings and plans documented above.
[2025-02-04 06:28] LABS: Basophils # (Auto) 0.1 Thou/mm3 (0.0-0.2); Basophils % (Auto) 1 % (0-2.5); Eosinophils # (Auto) 0.2 Thou/mm3 (0.0-0.5); Eosinophils % (Auto) 3 % (0-10); Hematocrit 40.4 % (41.0-53.0); Hemoglobin 13.9 g/dL (13.5-16.0); Immature Granulocytes Auto 0.04 Thou/mm3 (0.00-0.00); Lymphocytes # (Auto) 2.2 Thou/mm3 (1.0-4.8); Lymphocytes % (Auto) 31 % (10-50); Mean Corpuscular HGB Conc 34.4 g/dl (31.0-37.0); Mean Corpuscular Hemoglobin 32.5 pg (25.0-35.0); Mean Corpuscular Volume 94 fL (80-100); Monocytes # (Auto) 0.5 Thou/mm3 (0.0-0.8); Monocytes % (Auto) 7 % (0-12); Neutrophils # (Auto) 4.0 Thou/mm3 (1.8-7.7); Neutrophils % (Auto) 57 % (37-80); Nucleated Red Blood Cell # 0.00 Thou/mm3 (0.00-0.00); Nucleated Red Blood Cell % 0 /100 WBC (0); Platelet Count 167 Thou/mm3 (140-440); RDW Standard Deviation 46.2 fL (35.1-43.9); Red Blood Count 4.28 Miln/mm3 (4.50-5.90); White Blood Count 7.0 Thou/mm3 (3.8-10.6)
[2025-02-04 06:54] LABS: D-Dimer 732 ng/mL (<600)
[2025-02-04 07:18] LABS: Cardiac Risk Estimate 4.2 RATIO (4.0-6.7); Cholesterol 173 mg/dL (132-200); HDL Cholesterol 41 mg/dL (40-60); LDL Cholesterol,Calculated 93 mg/dL (0-130); Magnesium 2.0 mg/dL (1.6-2.6); Thyroid Stimulating Hormone 3.65 uIU/mL (0.55-4.78); Triglycerides 196 mg/dL (30-150); Troponin I 0.326 ng/mL (0.0-0.045)
[2025-02-04] MEDS: HEPARIN SOD INJ 5000 UNIT/ML VIAL SC (09:22)
[2025-02-04] MEDS: ASPIRIN EC 81 MG TABEC PO (09:22)
[2025-02-04 09:50] LABS: Amphetamine/Methamp Scrn,U Negative (Negative); Barbiturate Screen,Urine Negative (Negative); Benzodiazepines Screen,Urine Negative (Negative); Benzoylecgonine Screen, Ur Negative (Negative); Fentanyl Screen,Urine Negative (Negative); Opiate Screen,Urine Negative (Negative); THC Screen,Urine Negative (Negative)
[2025-02-04] MEDS: SPIRONOLACTONE 25 MG TABLET PO (10:14)
--- NOTE | 2025-02-04 10:45 | PC.NURSE ---
SPOKE WITH DR GAINES TO ASK IF PT IS GOING TO BE DISCHARGE BECAUSE THERE IS A DC ORDER IN CHART. PER DR GAINES YES PT IS TO BE DISCHARGED. ASKED IF IT WAS OKAY SINCE PT HAS NOT SEEN CARDIOLOGY DURING MY SHIFT. PER DR GAINES HE SPOKE WITH CARDIOLOGY AND HE STATES THAT THEY GAVE THE OKAY TO DISCHARGE PT AND TO HAVE HIM FOLLOW UP OUTPATIENT.
--- NOTE | 2025-02-04 14:05 | ESDS_ITS ---
<Statement entered by Terrie Huitron MD - 02/08/25 08:35> I reviewed above note and agree with findings and plans. I have also personally examined the patient with medicine team and went over assessment and plan with medical team including education intern and resident physician. Planned Discharge Date 02/04/25 DS: Providers Provider Date of admission: 02/04/25 04:50 Primary care physician: Physician No Primary/Family Admitting Provider: Karishma Monge MD Attending Provider on Admission: Terrie Huitron MD Consults: 02/04/25 04:57 Consult to Cardiology Stat Comment: shortness of breath Consulting Provider: Colby Hurtado Attending Provider on DC: Rey Doty DO Discharging Provider: Rey Doty DO DS: Diagnosis Problem List Completed Was Problem List Reviewed/Reconciled?: Yes Hospital Course Hospital Course Hospital course: Summary: Boo Rodriguez is 44 years old male with past medical history of no nischemic dilated cardiomyopathy, methamphetamine usage, EF 15% presented to the ED with complaints of shortness of breath since last 3 days. Patient was given bumetanide 2mg qd and resumed his home medication aspirin 81 mg daily, lisinopril 10 mg daily, spironolactone 25 mg daily, carvedilol 3.125 mg twice daily, atorvastatin 40 mg daily. Troponin decreased to 0.326. Cardiology recommended close follow up outpatient and increase lasix dose to 40mg twice a day ED course: vitals BP 124/87, pulse rate 76, respirate 24, temperature 98.4 saturating 97% on room air. Pertinent lab findings are troponin 0.333, BNP 1208. Imaging findings chest x-ray showing dilated left atrium and ventricle with bilateral interstitial lung thickening. Treatment given in ED bumetanide 2 mg. Hospital Course: Patient continued to take bumetanide 2mg qd and resumed his home medication aspirin 81 mg daily, lisinopril 10 mg daily, spironolactone 25 mg daily, carve dilol 3.125 mg twice daily, atorvastatin 40 mg daily. Troponin decreased to 0.326. Liver US (02/04/2025) showed Normal gallbladder, Normal common bile duct, Mild hepatomegaly. Cardiology recommended close follow up outpatient and increase lasix dose to 40mg twice a day Instructions: Increase Lasix to 40 mg twice a day Continue all other home medications as prescribed Please follow-up with your PCP within 1 week of discharge or follow-up at the [facility] [address] [place] [address] Ask your PCP to refer you to a identity access management architect as your heart function is severely low If your symptoms worsen or if you develop new chest pain, shortness of breath, dizziness or loss of consciousness - please come back to the ED immediately #Nonischemic dilated cardiomyopathy #Acute decompensated heart failure.. #Acute hypoxic respiratory failure #Heart failure with reduced ejection fraction 15% #Hypertension #NSTEMI type II #Hx of Substance abuse Assessment and plan discussed with my attending physician Dr. Elana Doty (PGY-1) - Internal medicine resident Status at Discharge Overall status at discharge: patient is progressing back to baseline Time Spent with Patient Time attestation: Total time spent providing and/or coordinating discharge services: Time spent: Greater than 30 minutes Exam Vital Signs Temp Pulse Resp BP Pulse Ox O2 Del Method 98.0 F 67 18 105/66 98 Room Air 02/04/25 12:29 02/04/25 12:29 02/04/25 12:29 02/04/25 12:29 02/04/25 12:29 02/04/25 10:44 Narrative Exam GENERAL: NAD, AAOx3 HEENT: Moist mucosa. Eyes open, symmetrical, & clear CARDIO: Regular rhythm Noted. No Murmurs. PULM: No noted coughing/dyspnea CTA B/L, fine crackles in the Rt lower lung. GI: Abdomen soft, non distended, no tenderness SKIN/MSK/EXT: No wounds/rashes/amputations, no pain on palpation.Edema on B/L ankles 1+. Pedal pulses present B/L NEURO: AAOx3, no focal neuro deficits, able to move all 4 extremities Discharge Plan Plan Patient Disposition: HOME (Self Care) Patient condition on transfer: Stable Care Plan Goals: Increase Lasix to 40 mg twice a day Continue all other home medications as prescribed Please follow-up with your PCP within 1 week of discharge or follow-up at the [facility] [address] [place] [address] Ask your PCP to refer you to a identity access management architect as your heart function is severely low If your symptoms worsen or if you develop new chest pain, shortness of breath, dizziness or loss of consciousness - please come back to the ED immediately Prescriptions/Referrals Prescriptions/Med Rec: Continued hydroxyzine HCl 10 MG tablet 10 mg PO Qty: 0 atorvastatin 40 mg tablet 40 mg PO HS Qty: 90 0RF carvedilol 3.125 mg Tablet 3.125 mg PO BIDWM Qty: 90 0RF Rx Instructions: Hold if blood pressure drops below 80/60 mmHg aspirin 81 mg Tablet,Delayed Release (Dr/Ec) 81 mg PO QDAY Qty: 90 0RF spironolactone 25 mg Tablet 25 mg PO QDAY Qty: 90 0RF Rx Instructions: Hold if blood pressure drops below 80/60 mmHg lisinopril 10 mg tablet 10 mg PO QDAY Qty: 90 0RF Changed furosemide 40 mg Tablet 40 mg PO BID Qty: 90 0RF Referrals: No Primary/Family,Physician [Primary Care Provider] Patient/Caregiver Discharge Instructions Education Materials: Substance Abuse and Traumatic ..., Understanding Methamphetamine ..., Coping with Heart Failure, Your Heart Risk Action Plan Print Language: Polish Stand Alone Forms: Estella Award Info., Patient Portal Info Letter Discharge Order Discharge Orders: Discharge (Routine); Ordered 02/04/25 Ordered By: Emmett Prieto Quality Discharge Quality Measures VTE prophylaxis
== END 2025-02-04 12:29 | disposition admitted as inpatient to this hospital (09) ==
LOC: SERX 02-04 04:09 → SERHOLD 02-04 05:57
PROVIDERS: Physician Assistant; Emergency Provider Emergency Medicine; Visit Provider Student in an Organized Health Care Education/Training Program
DX: I11.0 Hypertensive heart disease with heart failure (principal); I21.A1 Myocardial infarction type 2; I34.0 Nonrheumatic mitral (valve) insufficiency; I42.0 Dilated cardiomyopathy; I50.20 Unspecified systolic (congestive) heart failure; J96.01 Acute respiratory failure with hypoxia; Z79.82 Long term (current) use of aspirin; Z79.899 Other long term (current) drug therapy
CPT/HCPCS: 36415; 71046; 76705; 80048; 80053; 80061; 80307; 83735; 83880; 84100; 84443; 84484; 85025; 85379; 87811; 93005; 96372; 96374; 99285; J1644; J3490; A9270

== ENCOUNTER 2025-03-25 16:40 | Inpatient (IN) | payer MEDICAID, SELFPAY ==
[2025-03-25] VITALS (7 sets, daily range): BP systolic 102–118; BP diastolic 62–80; PULSE 80–104; RESP 18–90; TEMP 36.9–37.2; O2SAT 90–97; BMI 27.4
--- NOTE | 2025-03-25 16:54 | XR_ITS ---
EXAMINATION: PA chest single view TECHNIQUE: Upright PA chest single view Date March 25, 2025, 1721 hours March 25, 2025, 1718 hours INDICATIONS: Shortness of breath chest pain today. FINDINGS: Mild heart failure Moderate enlargement cardiac contour Prominent vascular congestion including central vascular engorgement Early septal edema Prominent osteopenia IMPRESSION: Mild heart failure
[2025-03-25] MEDS: ALBUTEROL/IPRATROPIUM (Duoneb) RT SOL 3 ML NEBU INH (17:09)
--- NOTE | 2025-03-25 17:47 | EKG_ITS ---
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: : 1980 Requested By: Patrice Shea Order Number: [id number] Reading MD: Patrice Shea Measurements Intervals [place] Rate: 93 P: 29 SC: 146 QRS: -39 QRSD: 134 T: 119 QT: 396 QTc: 494 Interpretive Statements SINUS RHYTHM POSSIBLE LEFT ATRIAL ENLARGEMENT [-0.1mV P-WAVE IN V1/V2] LEFT AXIS DEVIATION [QRS AXIS < -30] LEFT BUNDLE BRANCH BLOCK [120+ ms QRS DURATION, 80+ ms Q/S IN V1/V2, 85+ ms R IN I/aVL/V5/V6] Compared to ECG 02/04/2025 00:15:28 Left bundle-branch block now present Ventricular premature complex(es) no longer present Intraventricular conduction delay no longer present Left ventricular hypertrophy no longer present Myocardial infarct finding no longer present /store/S0/[id number]/ecg/[id number].pdf
[2025-03-25 18:27] LABS: Basophils # (Auto) 0.1 Thou/mm3 (0.0-0.2); Basophils % (Auto) 1 % (0-2.5); Eosinophils # (Auto) 0.2 Thou/mm3 (0.0-0.5); Eosinophils % (Auto) 2 % (0-10); Hematocrit 38.7 % (41.0-53.0); Hemoglobin 12.9 g/dL (13.5-16.0); Immature Granulocytes Auto 0.02 Thou/mm3 (0.00-0.00); Lymphocytes # (Auto) 0.8 Thou/mm3 (1.0-4.8); Lymphocytes % (Auto) 11 % (10-50); Mean Corpuscular HGB Conc 33.3 g/dl (31.0-37.0); Mean Corpuscular Hemoglobin 32.2 pg (25.0-35.0); Mean Corpuscular Volume 97 fL (80-100); Monocytes # (Auto) 0.6 Thou/mm3 (0.0-0.8); Monocytes % (Auto) 8 % (0-12); Neutrophils # (Auto) 5.5 Thou/mm3 (1.8-7.7); Neutrophils % (Auto) 78 % (37-80); Nucleated Red Blood Cell # 0.00 Thou/mm3 (0.00-0.00); Nucleated Red Blood Cell % 0 /100 WBC (0); Platelet Count 167 Thou/mm3 (140-440); RDW Standard Deviation 50.1 fL (35.1-43.9); Red Blood Count 4.01 Miln/mm3 (4.50-5.90); White Blood Count 7.1 Thou/mm3 (3.8-10.6)
[2025-03-25 18:56] LABS: Anion Gap 10 (7-16); B-Type Natriuretic Peptide 1664 pg/mL (0-100); BUN/Creatinine Ratio 12 Ratio (12-20); Blood Urea Nitrogen 13 mg/dL (9-23); Calcium 8.6 mg/dL (8.3-10.6); Carbon Dioxide 23.3 mMol/L (20.0-31.0); Chloride 106 mMol/L (98-107); Creatinine (Component) 1.1 mg/dL (0.6-1.3); Estimated Creatinine Clearance 82.0 mL/min (>60); Glucose 110 mg/dL (74-106); Osmolality,Calculated 278 (275-295); Potassium 4.3 mMol/L (3.4-5.1); Sodium 139 mMol/L (136-145); eGFR > 60 See Note
[2025-03-25 18:58] LABS: Troponin I 0.215 ng/mL (0.0-0.045)
--- NOTE | 2025-03-25 19:35 | PD.EDSOB ---
ED SOB =RME/HPI General Chief Complaint: Shortness of Breath/Dyspnea Stated Complaint: SOB Time Seen by Provider: 03/25/25 16:45 Arrival date/time: 03/25/25 16:40 RME / HPI RME / HPI Narrative: See [facility] for Dr. Gregg's HPI documentation. Related Data Home Medications ?Medication ?Instructions ?Recorded ?Confirmed hydroxyzine HCl 10 mg tablet 10 mg PO ##0 01/16/12 Previous Rx's ?Medication ?Instructions ?Recorded aspirin 81 mg tablet,delayed 81 mg PO QDAY #90 tabs 11/07/24 release atorvastatin 40 mg tablet 40 mg PO HS #90 tabs 11/07/24 carvedilol 3.125 mg tablet 3.125 mg PO BIDWM #90 tabs 11/07/24 lisinopril 10 mg tablet 10 mg PO QDAY #90 tabs 11/07/24 spironolactone 25 mg tablet 25 mg PO QDAY #90 tabs 11/07/24 furosemide 40 mg tablet 40 mg PO BID #90 tabs 02/04/25 Allergies Allergy/AdvReac Type Severity Reaction Status Date / Time No Known Allergies Allergy Verified 03/25/25 16:41 Review of Systems Review of Systems Systems Reviewed: All systems reviewed, normal except as documented ED Exam Narrative Physical exam: See [facility] for Dr. Gregg's physical exam documentation. Course Course Course Narrative: CXR is ordered for determining the etiology of shortness of breath. Quality Measures none Orders Category Date Time Status Bedside COVID-19 Antigen Test NOW Care 03/25/25 16:54 Active Bedside Influenza A&B Antigen Test NOW Care 03/25/25 16:54 Completed EKG (ED ONLY) *Do not use* NOW Care 03/25/25 17:47 Completed Saline [Insert IV] NOW Care 03/25/25 19:42 Active Straight [In and Out Catheter] X1 Care 03/25/25 19:42 Completed EKG (ED Only) Stat Exams 03/25/25 17:47 Draft XR chest 1V portable Stat Exams 03/25/25 16:54 Completed ABG [Arterial Blood Gas] Stat Lab 03/25/25 20:19 Completed Alcohol, Blood Medical Stat Lab 03/25/25 20:08 Completed BMP [Basic Metabolic Panel] Stat Lab 03/25/25 18:01 Completed BNP [B-Type Natriuretic Peptide] Stat Lab 03/25/25 18:01 Completed CBC Stat Lab 03/25/25 18:01 Completed Creatine Kinase Stat Lab 03/25/25 20:08 Completed D-Dimer Stat Lab 03/25/25 18:01 Completed Drug Screen,Urine Stat Lab 03/25/25 21:10 Completed Free T3 Stat Lab 03/25/25 20:08 Completed Free T4 (Free Thyroxine) Stat Lab 03/25/25 20:08 Completed Hemoglobin A1C [Glycohemoglobin w (eAG)] Stat Lab 03/25/25 18:01 Completed Magnesium Stat Lab 03/25/25 20:08 Completed TSH [Thyroid Stimulating Hormone] Stat Lab 03/25/25 20:08 Completed Troponin I Stat Lab 03/25/25 18:01 Completed Troponin I Stat Lab 03/25/25 20:08 Completed UA, C/S IF [Urinalysis, C/S if Indicated] Stat Lab 03/25/25 21:10 Completed Albuterol/Ipratr Rt Melina [Duoneb Rt Melina] Med 03/25/25 16:53 Discontinued 3 ml INH X1 ONE Furosemide Inj [Lasix Inj] Med 03/25/25 19:43 Discontinued 40 mg IVP X1 ONE Morphine* Inj Med 03/25/25 19:43 Discontinued 2 mg IV X1 ONE Nitroglycerin Oint 2% [Nitro-paste Oint 2%] Med 03/25/25 19:43 Discontinued 1 inch TOP X1 ONE dexAMETHasone INJ [Decadron Inj] Med 03/25/25 16:53 Discontinued 10 mg IM X1 ONE Vital Signs Vital signs: Vital Signs Temperature 98.9 F 03/25/25 16:53 Pulse Rate 104 H 03/25/25 16:53 Respiratory Rate 24 H 03/25/25 16:53 Blood Pressure 116/80 03/25/25 16:53 Pulse Oximetry (%) 95 03/25/25 16:53 Oxygen Delivery Method Room Air 03/25/25 16:53 Shortness of Breath / Dyspnea MDM Narrative MDM Narrative:: This section includes all my notes and documentations, including HPI, PE, and ED course. Fabian Gregg MD HPI: 45-year-old male here with shortness of breath. Has trouble describing his symptoms. Including the onset, exacerbating factors, and relieving factors. Has history of HTN and CHF. Has not been compliant with medications. He reports no cough. No fever. No chest pain. No other complaints. ROS: All negative except as documented in HPI. Physical Exam: General: Alert and oriented. Appears under the influence. In moderate respiratory distress. Eyes: Conjunctivae and lids clear. ENT: No nasal congestion. Neck: Supple. No JVD. Heart: RRR. Lungs: No respiratory distress. Decreased air movement with rales. Abdomen: Soft and nontender. Normal bowel sounds. No distension. No rebound or guarding. Back: No CVA tenderness. Skin: Warm and dry. Neuro: Alert and oriented X 3. I reviewed all diagnostic test results. My interpretation of the EKG is sinus rhythm. My interpretation of the chest x-ray is increased vascular congestion. Blood/urine tests remarkable for troponin 0.215, BNP 1664, and positive UDS for methamphetamine. At this point, diagnoses include: CHF exacerbation Methamphetamine intoxication Treatment here included: Morphine 2 mg IV Nitropaste 1 inch Lasix 40 mg IV Decadron 10 mg IM and DuoNeb (ordered by COS[facility] Mae prior to my care) No significant improvement noted. I discussed the case with our hospitalist. About the presentation and exam and diagnostics and treatments here. And need of further care in the hospital. Will accept the patient. Fabian Gregg MD Patient data External records reviewed:: [facility] previous records (Per chart review, patient was admitted here on 02/04/25 for cardiomyopathy.) Clinical information provided by:: patient Social determinants that could affect healthcare access:: substance use Patient has the following chronic illnesses:: cardiomyopathy, HTN How is presenting disease/condition affected by chronic disease/condition?: exacerbated by Evaluation data The following diagnostics were reviewed and interpreted by me:: lab results, radiology exam(s) and EKG tracing(s) (My interpretation of the EKG is: Sinus rhythm (93 bpm) with nonspecific ST-T changes. Fabian Gregg MD) Lab and/or radiology exams considered but not ordered:: none Interpretation Summary: I reviewed all diagnostic test results. My interpretation of the EKG is sinus rhythm. My interpretation of the chest x-ray is increased vascular congestion. Blood/urine tests remarkable for troponin 0.215, BNP 1664, and positive UDS for methamphetamine. Medications / Prescriptions Medications or Prescriptions considered but not ordered:: none Medication administrations:: Medication Administration History Acetaminophen (Acetaminophen 325 Mg Tablet) 650 mg PO Q6H PRN PRN Reason: Fever >101.5 or pain 1-3 Stop: 04/24/25 22:01 Albuterol/Ipratropium (Albuterol/Ipratropium (Duoneb) Rt Melina 3 Ml Nebu) 3 ml INH Q6HRRT YUE Stop: 04/25/25 00:59 Albuterol/Ipratropium (Albuterol/Ipratropium (Duoneb) Rt Melina 3 Ml Nebu) 3 ml INH Q4H PRN PRN Reason: SHORTNESS OF BREATH OR WHEEZE Stop: 04/24/25 22:01 Heparin Sodium (Porcine) (Heparin Sod Inj 5000 Unit/Ml Vial) 5,000 unit SC Q12H YUE Stop: 04/08/25 22:14 Last Admin: 03/25/25 23:27 Dose: 5,000 unit Documented By: SWATHI Co-signed By: NAVID Magnesium Sulfate (Magnesium Sulfate Ivpb) 2 gm in 50 mls @ 25 mls/hr IV X1 ONE Stop: 03/26/25 01:05 Last Admin: 03/25/25 23:27 Dose: 25 mls/hr Documented By: SWATHI Sennosides (Senna Tablet) 1 tab PO QDAY PRN; Protocol PRN Reason: constipation Stop: 04/24/25 22:01 Discontinued Medications Albuterol/Ipratropium (Albuterol/Ipratropium (Duoneb) Rt Melina 3 Ml Nebu) 3 ml INH X1 ONE Stop: 03/25/25 16:54 Last Admin: 03/25/25 17:09 Dose: 3 ml Documented By: BELEM Dexamethasone Sodium Phosphate (Dexamethasone Sod Phos Inj 10 Mg/Ml Vial) 10 mg IM X1 ONE Stop: 03/25/25 16:54 Last Admin: 03/25/25 17:06 Dose: 10 mg Documented By: TIFF Furosemide (Furosemide Inj 10 Mg/Ml 4ml Vial) 40 mg IVP X1 ONE Stop: 03/25/25 19:44 Last Admin: 03/25/25 21:20 Dose: 40 mg Documented By: SWATHI Morphine Sulfate (Morphine Sulf Inj 4 Mg/Ml Vial) 2 mg IV X1 ONE Stop: 03/25/25 19:44 Last Admin: 03/25/25 21:20 Dose: 2 mg Documented By: SWATHI Nitroglycerin (Nitroglycerin Oint 2% 1 Inch Packet) 1 inch TOP X1 ONE Stop: 03/25/25 19:44 Last Admin: 03/25/25 21:21 Dose: 1 inch Documented By: SWATHI Treatment here included: Morphine 2 mg IV Nitropaste 1 inch Lasix 40 mg IV Decadron 10 mg IM and DuoNeb (ordered by [facility] Mae prior to my care) Consultations Consultation(s) initiated? (list below): Yes Consultation #1 (Physician, Specialty, Details): I discussed the case with our hospitalist. About the presentation and exam and diagnostics and treatments here. And need of further care in the hospital. Will accept the patient. Diagnosis Shortness of Breath Differential Diagnosis: acute exacerbation of chronic obstructive airways disease, congestive heart failure, community acquired pneumonia, asthma with exacerbation and pulmonary embolism Most likely diagnosis given after review of the tests above:: CHF exacerbation Methamphetamine use Admission Indicated Admission indicated?: indicated Explain why admission is indicated or not indicated:: CHF exacerbation Methamphetamine use Admission Request Was there a request for admission?: Yes Admission Attestation Admission request attestation: Discussed case with Hospitalist service regarding admission. Discussed patients ED course, exam findings, labs, and radiology results. Agreed to accept the patient for admission. Disposition Plan Disposition Plan: Admit Discharge Plan Plan Patient Disposition: Admit Acute Care w/in Hospital Problem List Clinical Impression: CHF exacerbation, Methamphetamine use
[2025-03-25 20:35] LABS: Allen Test Performed/OK; Base Excess -1 (-3-3); HCO3 23 mEq/L (20-26); Inspired Oxygen, FIO2 21 %; O2 Saturation 94 % (91-98); PCO2 35 mmHg (32.0-48.0); PO2 66 mmHg (83-108); Puncture Site Right Radial; pH, Arterial 7.43 (7.35-7.45)
[2025-03-25 20:37] LABS: D-Dimer 787 ng/mL (<600)
[2025-03-25 21:01] LABS: Alcohol, Blood Medical < 3.0 mg/dL (0-10.0); Magnesium 2.0 mg/dL (1.6-2.6); Thyroid Stimulating Hormone 0.40 uIU/mL (0.55-4.78)
[2025-03-25 21:06] LABS: Troponin I 0.225 ng/mL (0.0-0.045)
[2025-03-25 21:19] LABS: Collection Type, Urine Clean Catch; Squamous Epithelial Cell,Urine 0 /hpf (0-5)
[2025-03-25] MEDS: FUROSEMIDE INJ 10 MG/ML 4ML VIAL 40 MG IVP (21:20)
[2025-03-25] MEDS: MORPHINE SULF INJ 4 MG/ML VIAL 2 MG IV (21:20)
[2025-03-25] MEDS: NITROGLYCERIN OINT 2% 1 INCH PACKET TOP (21:21)
[2025-03-25 21:29] LABS: Bilirubin,Urine Negative (Negative); Blood,Urine Negative (Negative); Clarity,Urine Clear (Clear/Hazy); Color,Urine Lt-Yellow (Lt Yel-Yel); Culture Indicated,Urine Not Indicated; Glucose, Urine Negative (Negative); Ketones,Urine Negative (Negative); Leukocyte Esterase,Urine Negative (Negative); Nitrite,Urine Negative (Negative); PH,Urine 7.0 (5.0-7.0); Protein,Urine Negative (Neg - Trace); RBC,Urine 2 /hpf (0-3); Specific Gravity,Urine 1.011 (1.001-1.035); Urobilinogen,Urine Negative mg/dL (0.0-1.0); WBC,Urine 1 /hpf (0-5)
[2025-03-25 21:59] LABS: Glucose Estimated Average 114 mg/dL (80-131); Hemoglobin A1C 5.6 % Hgb (4.8-6.0)
--- NOTE | 2025-03-25 22:02 | ESHP_ITS ---
Documentation for date of: 03/25/25 HPI History of Present Illness Chief complaint: Shortness of breath History of present illness: This patient is a 45-year-old male with history of dilated cardiomyopathy, meth abuse, and HFrEF (15% 11/06) who presented to [facility] ED on 03/25 for shortness of breath. The patient was admitted for management of acute hypoxic respiratory failure. Patient shortness of breath started about 2 days ago. Nothing was seems to make it any better, but the patient does note that he feels a bit more short of breath in the evening. The patient denies any recent sick contacts and is still able to walk about a quarter of a mile without any difficulties, but decided to get medical care because he was concerned about his shortness of breath not resolving. The patient states that he has no history of smoking and has never been diagnosed with any COPD or asthma and also sleeps laying flat without any extra pillows to support him. The patient was recently admitted back in late December 2024 for similar presentation, although it is not as severe. During that admission, the patient was found to have dilated cardiomyopathy with HFrEF LVEF of 15% on echocardiogram performed on 11/06/2024. The patient was given Bumex during the visit and resumed his home medications with resolution of the patient's symptoms. Cardiology was consulted during that visit, and recommended follow-up outpatient with increase Lasix to 40 mg twice daily. At that time, the patient was most likely not given a LifeVest as the patient endorsed methamphetamine use. The patient stated that he stopped using methamphetamine about 4 months ago. The patient was supposed to follow-up with a consultant teacher in [place] today, but the patient was unable to go to this appointment as he was feeling short of breath and decided to come to the ED instead. In the ED, the patient was found to be breathing on room air saturating 90 to 97%, however the patient had increased work of breathing and was found to be tachypneic in the 20s to 30s respiratory rate. Additionally, the patient was found to have a run of V. tach for about 5 seconds in the ED. The patient endorsed improvement of his symptoms after being given DuoNeb and Lasix in the ED. On admission, patient was found to have respiratory rate of 27 and saturating 92% on room air with significant wheezing in the posterior bilateral lungs, louder on the right than the left. ED course: Initial vitals significant for heart rate of 104 and respiratory of 24 saturating 95% on room air. Initial labs significant for hemoglobin of 12.9, troponin 0.215, BNP 1664, and urine toxicology positive for methamphetamine. Chest x-ray shows mild heart failure. Patient was given dexamethasone, DuoNebs, Lasix, and morphine in the ED. Past Surgical History: Patient denies Current Medication(s): Pending med rec Allergies (w/ Reactions): NKDA Family History: Noncontributory Occupation: [employer] Alcohol Intake: Patient denies Tobacco/Vape Use: Patient denies Other Drug Use: Methamphetamine use, patient is unsure exactly how long, states that his most recent use was 4 months ago Recent Travel History: Patient denies Review of Systems Review of Systems Systems Reviewed: All systems reviewed, normal except as documented Exam Vital Signs Temp Pulse Resp BP Pulse Ox O2 Del Method 98.6 F 87 18 118/77 92 L Room Air 03/25/25 20:36 03/25/25 21:21 03/25/25 20:36 03/25/25 21:21 03/25/25 20:36 03/25/25 20:36 Narrative Exam Physical Exam: General: Alert, no acute distress. Skin: Warm, dry, intact. Head: Normocephalic, atraumatic. Eye: Normal conjunctiva, PERRL. Throat: Oral mucosa dry. No obvious lesions in oropharynx. Cardiovascular: Regular rate and rhythm, no murmur, +S1/S2. Respiratory: Respirations labored and tachypneic, no crackles, bilateral wheezing present on posterior auscultation, louder on right than left. Gastrointestinal: Soft, nontender, non-distended. No guarding or rebound tenderness. Extremities: 2+ pitting edema to knees, no cyanosis, no clubbing. Neuro: No focal deficits observed. Conversant, moving all extremities. No overt cerebellar signs/incoordination. Psychiatric: Cooperative, appropriate affect. Results: Labs 03/27/25 05:15 03/27/25 05:15 Labs: Short CBC 03/25/25 Range/Units 18:01 WBC 7.1 (3.8-10.6) Thou/mm3 Hgb 12.9 L (13.5-16.0) g/dL Hct 38.7 L (41.0-53.0) % Plt Count 167 (140-440) Thou/mm3 BMP 03/25/25 18:01 Sodium 139 Potassium 4.3 Chloride 106 Carbon Dioxide 23.3 BUN 13 Creatinine 1.1 Glucose 110 H Calcium 8.6 Cardiac Enzymes 03/25/25 03/25/25 Range/Units 18:01 20:08 Troponin I 0.215 H* 0.225 H* (0.0-0.045) ng/mL Urine 03/25/25 Range/Units 21:10 Urine Color Lt-Yellow (Lt Yel-Yel) Urine Clarity Clear (Clear/Hazy) Urine pH 7.0 (5.0-7.0) Ur Specific [place] 1.011 (1.001-1.035) Urine Protein Negative (Neg - Trace) Urine Glucose (UA) Negative (Negative) ABG Interpretation ABG results: 03/25/25 20:19 ABG pH 7.43 ABG pCO2 35 ABG pO2 66 L ABG HCO3 23 ABG O2 Saturation 94 ABG Base Excess -1 Quality Measures Quality Measures VTE prophylaxis Medications Home Medications and Allergies Home Medications ?Medication ?Instructions ?Recorded ?Confirmed ?Type hydroxyzine HCl 10 mg tablet 10 mg PO QDAY ##0 2 03/27/25 History Allergies Allergy/AdvReac Type Severity Reaction Status Date / Time No Known Allergies Allergy Verified 03/25/25 16:41 Visit Medications Discontinued Medications Albuterol/Ipratropium (Albuterol/Ipratropium (Duoneb) Rt Melina 3 Ml Nebu) 3 ml INH X1 ONE Stop: 03/25/25 16:54 Last Admin: 03/25/25 17:09 Dose: 3 ml Dexamethasone Sodium Phosphate (Dexamethasone Sod Phos Inj 10 Mg/Ml Vial) 10 mg IM X1 ONE Stop: 03/25/25 16:54 Last Admin: 03/25/25 17:06 Dose: 10 mg Furosemide (Furosemide Inj 10 Mg/Ml 4ml Vial) 40 mg IVP X1 ONE Stop: 03/25/25 19:44 Last Admin: 03/25/25 21:20 Dose: 40 mg Morphine Sulfate (Morphine Sulf Inj 4 Mg/Ml Vial) 2 mg IV X1 ONE Stop: 03/25/25 19:44 Last Admin: 03/25/25 21:20 Dose: 2 mg Nitroglycerin (Nitroglycerin Oint 2% 1 Inch Packet) 1 inch TOP X1 ONE Stop: 03/25/25 19:44 Last Admin: 03/25/25 21:21 Dose: 1 inch Assessment & Plan Plan This patient is a 45-year-old male with history of dilated cardiomyopathy, meth abuse, and HFrEF (15% 11/06) who presented to [facility] ED on 03/25 for shortness of breath. The patient was admitted for management of acute hypoxic respiratory failure. #Acute hypoxic respiratory failure 2/ #Acute on chronic HFrEF (LVEF 15%, 11/06) #Dilated cardiomyopathy Patient presented with shortness of breath, tachypnea, bilateral wheezing, and bilateral lower extremity pitting edema. The patient does have a history of HFrEF (LVEF 15%) from dilated cardiomyopathy, likely secondary to the patient's history of meth use, which was diagnosed back in late October 2024. The patient does take medications at home for this condition, but has not yet followed up with a consultant teacher for up titration of his medications and further management. Diagnostic: BNP on admission 1664 ABG on admission shows PaO2 66 Chest x-ray on admission shows mild heart failure Echocardiogram on 11/06/2024 shows dilated cardiomyopathy with estimated EF at 15%, severely increased LA volume, and mild to moderate mitral regurgitation Treatment: Lasix 40 mg IV twice daily Resumed home spironolactone 25 mg p.o. twice daily DuoNebs every 6 hours with additional every 4 hours as needed Resumed home Coreg 3.125 mg twice daily Resumed home atorvastatin 40 mg at bedtime Resumed home aspirin 81 mg daily Strict ins and out Fluid restriction 1200 cc Low-sodium diet with cardiac modification Will consider Bumex if IV Lasix is insufficient for diuresis Will continue to monitor telemetry as patient has had brief runs of V. tach, which is not unexpected given his LVEF Keep potassium above 4 and magnesium above 2 #NSTEMI type II #New onset LBBBB #Non-sustained V-tach Patient noted to have elevated troponins, which has been elevated throughout his previous hospital admissions as well. This is likely secondary to his dilated cardiomyopathy. Diagnostic: Troponin on admission 0.225 Treatment: Continue to manage underlying HFrEF Repeat troponin ordered in the a.m., continue to trend until downtrending #History of meth use #Methamphetamine positive Urine toxicology in ED positive for methamphetamine Counseled the patient on methamphetamine cessation, patient is unlikely to be a candidate for LifeVest given his methamphetamine use DVT Prophylaxis: Heparin GI Prophylaxis: N/A Bowel: Senna PRN Diet: Low sodium, cardiac, fluid restriction 1200 cc Funk: N/A Lines: PIV Antibiotics: N/A Code Status: FULL [facility] Other Barriers to Discharge: Diuresis Patient plan of care was discussed with attending physician Dr. Mariposa Vicente, PGY1 Attending Provider Attestation/Addendum After examination of the patient and review of the clinical data I feel that this patient needs admission to the hospital for further treatment/evaluation. Plan of care discussed with patient and is in agreement. I Karishma Monge MD, attest that I was physically present for dominguez portions of evaluation, and examined patient, labs and imagings and plan of care were discussed with IM residents team, and I agree with the findings and plans documented above.
[2025-03-25 22:07] LABS: Amphetamine/Methamp Scrn,U Positive (Negative); Barbiturate Screen,Urine Negative (Negative); Benzodiazepines Screen,Urine Negative (Negative); Benzoylecgonine Screen, Ur Negative (Negative); Fentanyl Screen,Urine Negative (Negative); Opiate Screen,Urine Negative (Negative); THC Screen,Urine Negative (Negative)
[2025-03-25 22:12] LABS: Creatine Kinase 103 U/L (34-171)
--- NOTE | 2025-03-25 23:03 | PC.NURSE ---
OPEN CUT EXAMINER INFORMED PT HAD 5 SEC RUN OF VTACH, STRIP PRINTED AND MADE DR GARZA AWARE. STRIP IN CHART.
[2025-03-25] MEDS: Magnesium Sulfate 2 GM Ivpb 2 GM/50 ML BAG IV (23:27)
[2025-03-25] MEDS: HEPARIN SOD INJ 5000 UNIT/ML VIAL SC (23:27)
[2025-03-25 23:28] LABS: Free T3 3.0 pg/mL (2.3-4.2); Free T4 (Free Thyroxine) 1.30 ng/dL (0.89-1.76)
[2025-03-26] VITALS (15 sets, daily range): BP systolic 93–126; BP diastolic 57–85; PULSE 8–96; RESP 14–93; TEMP 35.9–37.2; O2SAT 90–99; BMI 19.9
[2025-03-26] MEDS: ALBUTEROL/IPRATROPIUM (Duoneb) RT SOL 3 ML NEBU INH ×4 (01:47→18:47)
[2025-03-26] MEDS: FUROSEMIDE INJ 10 MG/ML VIAL 2 ML 20 MG IVP (05:40)
[2025-03-26 05:50] LABS: Basophils # (Auto) 0.0 Thou/mm3 (0.0-0.2); Basophils % (Auto) 0 % (0-2.5); Eosinophils # (Auto) 0.0 Thou/mm3 (0.0-0.5); Eosinophils % (Auto) 0 % (0-10); Hematocrit 40.2 % (41.0-53.0); Hemoglobin 13.7 g/dL (13.5-16.0); Immature Granulocytes Auto 0.02 Thou/mm3 (0.00-0.00); Lymphocytes # (Auto) 0.5 Thou/mm3 (1.0-4.8); Lymphocytes % (Auto) 10 % (10-50); Mean Corpuscular HGB Conc 34.1 g/dl (31.0-37.0); Mean Corpuscular Hemoglobin 32.9 pg (25.0-35.0); Mean Corpuscular Volume 97 fL (80-100); Monocytes # (Auto) 0.2 Thou/mm3 (0.0-0.8); Monocytes % (Auto) 4 % (0-12); Neutrophils # (Auto) 4.1 Thou/mm3 (1.8-7.7); Neutrophils % (Auto) 85 % (37-80); Nucleated Red Blood Cell # 0.00 Thou/mm3 (0.00-0.00); Nucleated Red Blood Cell % 0 /100 WBC (0); Platelet Count 161 Thou/mm3 (140-440); RDW Standard Deviation 49.9 fL (35.1-43.9); Red Blood Count 4.16 Miln/mm3 (4.50-5.90); White Blood Count 4.8 Thou/mm3 (3.8-10.6)
[2025-03-26 06:32] LABS: Albumin, Serum 4.2 gm/dL (3.5-5.0); Anion Gap 11 (7-16); BUN/Creatinine Ratio 14 Ratio (12-20); Blood Urea Nitrogen 13 mg/dL (9-23); Calcium 9.0 mg/dL (8.3-10.6); Calcium (Corrected) 9.0 mg/dL (8.5-10.1); Carbon Dioxide 23.3 mMol/L (20.0-31.0); Chloride 105 mMol/L (98-107); Creatinine (Component) 0.9 mg/dL (0.6-1.3); Estimated Creatinine Clearance 81.2 mL/min (>60); Glucose 146 mg/dL (74-106); Magnesium 2.4 mg/dL (1.6-2.6); Osmolality,Calculated 280 (275-295); Phosphorous 4.8 mg/dL (2.4-5.1); Potassium 4.0 mMol/L (3.4-5.1); Sodium 139 mMol/L (136-145); eGFR > 60 See Note
[2025-03-26 06:35] LABS: INR 1.0 (0.9-1.3); Partial Thromboplastin Time 34.7 Seconds (22.0-36.0); Prothrombin Time 10.9 Seconds (9.0-12.2)
[2025-03-26 06:49] LABS: Troponin I 0.177 ng/mL (0.0-0.045)
[2025-03-26] MEDS: SPIRONOLACTONE 25 MG TABLET PO (09:18)
[2025-03-26] MEDS: ASPIRIN EC 81 MG TABEC PO (09:19)
[2025-03-26] MEDS: HEPARIN SOD INJ 5000 UNIT/ML VIAL SC ×2 (09:28→21:57)
--- NOTE | 2025-03-26 10:17 | PD.HHPROG ---
Documentation for date of: 03/26/25 Subjective - Hospitalist Subjective Interval history: Patient seen at bedside. No acute overnight events. Patient admitted for CHF exacerbation. He endorses slight improvement in shortness of breath today. Net negative approximately 1 L thus far. Afebrile. BP 101/63. Heart rate 84. Patient denies headache, chest pain, palpitations, nausea/vomiting, and no abdominal pain. He endorses increased urination secondary to diuretics. Discussed with patient he will remain hospitalized for further diuresis. Review of Systems Review of Systems Systems Reviewed: All systems reviewed, normal except as documented Exam Vital Signs Temp Pulse Resp BP Pulse Ox O2 Del Method O2 Flow Rate 97.7 F 84 17 101/63 90 L Room Air 2 03/26/25 08:00 03/26/25 09:21 03/26/25 08:00 03/26/25 09:21 03/26/25 08:00 03/26/25 08:00 03/26/25 04:00 Narrative General: Alert, no acute distress. Head: Normocephalic, atraumatic. MMM Cardiovascular: Regular rate and rhythm, no murmur, +S1/S2. Respiratory: minimal wheezing bilateral at mid lung zones/lung bases with poor air entry Gastrointestinal: Soft, nontender, non-distended. No guarding or rebound tenderness. Extremities: 2+ pitting edema to knees, no cyanosis, no clubbing. Neuro: No focal deficits observed. Conversant, moving all extremities. No overt cerebellar signs/incoordination. Psychiatric: Cooperative, appropriate affect. Objective - Hospitalist Labs Diagram: 03/26/25 05:30 03/26/25 05:30 Labs: Laboratory Results - last 24 hr 03/25/25 03/25/25 03/25/25 18:01 20:08 20:19 WBC 7.1 RBC 4.01 L Hgb 12.9 L Hct 38.7 L MCV 97 MCH 32.2 MCHC 33.3 RDW Std Deviation 50.1 H Plt Count 167 Neut % (Auto) 78 Lymph % (Auto) 11 Wirt % (Auto) 8 Eos % (Auto) 2 Baso % (Auto) 1 Neut # (Auto) 5.5 Lymph # (Auto) 0.8 L Wirt # (Auto) 0.6 Eos # (Auto) 0.2 Baso # (Auto) 0.1 Immature Gran # (Auto) 0.02 H Absolute Nucleated RBC 0.00 Immature Gran % 0 Nucleated RBC % 0 PT INR APTT D-Dimer 787 H Puncture Site Right Radial ABG pH 7.43 ABG pCO2 35 ABG pO2 66 L ABG HCO3 23 ABG O2 Saturation 94 ABG Base Excess -1 FiO2 21 Sodium 139 Potassium 4.3 Chloride 106 Carbon Dioxide 23.3 Anion Gap 10 BUN 13 Creatinine 1.1 Estim Creat Clear Calc 82.0 eGFR > 60 BUN/Creatinine Ratio [address] Glu mg/dL 114 Hemoglobin A1c 5.6 Calculated Osmolality 278 Calcium 8.6 Corrected Calcium Phosphorus Magnesium 2.0 Total Creatine Kinase 103 Troponin I 0.215 H* 0.225 H* B-Natriuretic Peptide 1664 H* Albumin TSH 0.40 L Free T4 1.30 Free T3 pg/dL 3.0 Ur Collection Type Urine Color Urine Clarity Urine pH Ur Specific [place] Urine Protein Urine Glucose (UA) Urine Ketones Urine Blood Urine Nitrite Urine Bilirubin Urine Urobilinogen (Auto) Ur Leukocyte Esterase Urine RBC Urine WBC Ur Squamous Epith Cells Urine Bacteria Ur Culture Indicated? Urine Opiates Screen Urine Fentanyl Screen Ur Barbiturates Screen U Amphetamin/Meth Scrn U Benzodiazepines Scrn U Cocaine Metab Screen U Marijuana (THC) Screen Ethyl Alcohol < 3.0 03/25/25 03/26/25 21:10 05:30 WBC 4.8 RBC 4.16 L Hgb 13.7 Hct 40.2 L MCV 97 MCH 32.9 MCHC 34.1 RDW Std Deviation 49.9 H Plt Count 161 Neut % (Auto) 85 H Lymph % (Auto) 10 Wirt % (Auto) 4 Eos % (Auto) 0 Baso % (Auto) 0 Neut # (Auto) 4.1 Lymph # (Auto) 0.5 L Wirt # (Auto) 0.2 Eos # (Auto) 0.0 Baso # (Auto) 0.0 Immature Gran # (Auto) 0.02 H Absolute Nucleated RBC 0.00 Immature Gran % 0 Nucleated RBC % 0 PT 10.9 INR 1.0 APTT 34.7 D-Dimer Puncture Site ABG pH ABG pCO2 ABG pO2 ABG HCO3 ABG O2 Saturation ABG Base Excess FiO2 Sodium 139 Potassium 4.0 Chloride 105 Carbon Dioxide 23.3 Anion Gap 11 BUN 13 Creatinine 0.9 Estim Creat Clear Calc 81.2 eGFR > 60 BUN/Creatinine Ratio 14 [address]ucose [address] Glu mg/dL Hemoglobin A1c Calculated Osmolality 280 Calcium 9.0 Corrected Calcium 9.0 Phosphorus 4.8 Magnesium 2.4 Total Creatine Kinase Troponin I 0.177 H* B-Natriuretic Peptide Albumin 4.2 TSH Free T4 Free T3 pg/dL Ur Collection Type Clean Catch Urine Color Lt-Yellow Urine Clarity Clear Urine pH 7.0 Ur Specific [place] 1.011 Urine Protein Negative Urine Glucose (UA) Negative Urine Ketones Negative Urine Blood Negative Urine Nitrite Negative Urine Bilirubin Negative Urine Urobilinogen (Auto) Negative Ur Leukocyte Esterase Negative Urine RBC 2 Urine WBC 1 Ur Squamous Epith Cells 0 Urine Bacteria None Ur Culture Indicated? Not Indicated Urine Opiates Screen Negative Urine Fentanyl Screen Negative Ur Barbiturates Screen Negative U Amphetamin/Meth Scrn Positive A U Benzodiazepines Scrn Negative U Cocaine Metab Screen Negative U Marijuana (THC) Screen Negative Ethyl Alcohol ABG Interpretation ABG results: 03/25/25 20:19 ABG pH 7.43 ABG pCO2 35 ABG pO2 66 L ABG HCO3 23 ABG O2 Saturation 94 ABG Base Excess -1 Assessment & Plan Plan: Patient is a 45-year-old male with a medical history of dilated cardiomyopathy, meth abuse, and HFrEF (15% 11/06), dyslipidemia, and primary hypertension who presented to [facility] ED on 03/25/25 for shortness of breath. The patient was admitted for management of acute hypoxic respiratory failure. #Acute hypoxic respiratory failure #Acute on chronic HFrEF (LVEF 15%, 11/06) #Dilated cardiomyopathy Presented with shortness of breath, wheezing, orthopnea, and bilateral lower extremity edema Trigger for exacerbation likely continued methamphetamine usage +/- medication noncompliance On admission chest x-ray showed vascular congestion with early septal edema, BNP 1664, 11/06/2024 echo revealed dilated cardiomyopathy with EF 15%. Echocardiogram on 11/06/2024 shows dilated cardiomyopathy with estimated EF at 15%, severely increased LA volume, and mild to moderate mitral regurgitation Treatment: Lasix 40 mg IV twice daily spironolactone 25 mg p.o. twice daily DuoNebs every 6 hours with additional every 4 hours as needed Coreg 3.125 mg twice daily Strict ins and out, Fluid restriction 1200 cc, cardiac diet Plan: Continue IV diuresis patient will continue to uptitrate goal-directed medical therapy as blood pressure allows. Net -1 L thus far and goal of 1.5 to 2 L diuresis for hospitalization. will continue to social services counselor patient on medication compliance, follow-up, and cessation of substances #NSTEMI type II Elevated troponin most likely secondary to demand ischemia in the setting of continued methamphetamine abuse and severe CHF Troponin peaked at 0.225, no complaints of chest pain at this time Plan: Continue aspirin and statin therapy. Monitor on telemetry. EKG as needed if chest pain develops. Patient develops symptoms then we will consult cardiology. #Methamphetamine positive Urine toxicology in ED positive for methamphetamine Plan: Counseled patient on methamphetamine cessation, patient is unlikely to be a candidate for LifeVest given his methamphetamine use #Dyslipidemia - Plan: Continue statin therapy in order lipid panel for a.m. DVT Prophylaxis: Heparin GI Prophylaxis: N/A Diet: Low sodium, cardiac, fluid restriction 1200 cc Code Status: Full code Dispo: Admitted to telemetry for acute CHF exacerbation Dr. Teresa MD Time Spent with Patient Time: Total time spent is greater than 50% in coordination of care (as documented) at patient's floor/unit and/or counseling patient: Time with patient: 25 - 35 minutes Reason for Continued Stay Reason for continued stay: continue IV diuretic Quality Measures Quality Measures VTE prophylaxis
--- NOTE | 2025-03-26 12:03 | PC.NURSE ---
Pt. had a run of Vtach 7 beats. Asymptomatic, BP-102/82 pulse-80 MD notified. Just watch for now.
--- NOTE | 2025-03-26 13:40 | PC.SS ---
Boo Rodriguez is a 45 year-old male admitted to [facility] for AHRF. SS conducted bedside contact with the patient to complete initial assessment and to discuss discharge planning. Role and reason explained. Patient confirmed demographic information. Patient identifies his dtr Bhumi Laureano [phone] as his surrogate decision maker. Pt states he is able to complete all ADL?s independent. Pt does not possesses any DME. Pts PCP is Gera Blake. [facility] choice [facility]. Discharge options discussed and the pt wishes to return home.? Pt will transport himself as he has his own vehicle here. No further intervention required at this time, social service worker would be available to address any further concerns. DC Plan: Home Contact: Bhumi Jones Address: Confirmed on face sheet PCP: Hayden
[2025-03-26] MEDS: FUROSEMIDE INJ 10 MG/ML 4ML VIAL 40 MG IVP (17:41)
[2025-03-26] MEDS: ATORVASTATIN CALCIUM 20 MG TABLET 40 MG PO (21:57)
[2025-03-27] VITALS (17 sets, daily range): BP systolic 91–121; BP diastolic 53–75; PULSE 69–92; RESP 14–94; TEMP 36.3–37.2; O2SAT 92–99; BMI 26.8
[2025-03-27] MEDS: ALBUTEROL/IPRATROPIUM (Duoneb) RT SOL 3 ML NEBU INH ×4 (00:23→18:12)
[2025-03-27 06:30] LABS: Basophils # (Auto) 0.1 Thou/mm3 (0.0-0.2); Basophils % (Auto) 1 % (0-2.5); Eosinophils # (Auto) 0.2 Thou/mm3 (0.0-0.5); Eosinophils % (Auto) 2 % (0-10); Hematocrit 43.1 % (41.0-53.0); Hemoglobin 14.1 g/dL (13.5-16.0); Immature Granulocytes Auto 0.03 Thou/mm3 (0.00-0.00); Lymphocytes # (Auto) 1.6 Thou/mm3 (1.0-4.8); Lymphocytes % (Auto) 24 % (10-50); Mean Corpuscular HGB Conc 32.7 g/dl (31.0-37.0); Mean Corpuscular Hemoglobin 32.0 pg (25.0-35.0); Mean Corpuscular Volume 98 fL (80-100); Monocytes # (Auto) 0.8 Thou/mm3 (0.0-0.8); Monocytes % (Auto) 12 % (0-12); Neutrophils # (Auto) 3.9 Thou/mm3 (1.8-7.7); Neutrophils % (Auto) 60 % (37-80); Nucleated Red Blood Cell # 0.00 Thou/mm3 (0.00-0.00); Nucleated Red Blood Cell % 0 /100 WBC (0); Platelet Count 192 Thou/mm3 (140-440); RDW Standard Deviation 52.2 fL (35.1-43.9); Red Blood Count 4.40 Miln/mm3 (4.50-5.90); White Blood Count 6.5 Thou/mm3 (3.8-10.6)
[2025-03-27] MEDS: FUROSEMIDE INJ 10 MG/ML 4ML VIAL 40 MG IVP ×2 (06:38→17:32)
[2025-03-27 06:39] LABS: Albumin, Serum 4.3 gm/dL (3.5-5.0); Anion Gap 10 (7-16); BUN/Creatinine Ratio 25 Ratio (12-20); Blood Urea Nitrogen 30 mg/dL (9-23); Calcium 8.9 mg/dL (8.3-10.6); Calcium (Corrected) 8.9 mg/dL (8.5-10.1); Carbon Dioxide 28.2 mMol/L (20.0-31.0); Chloride 104 mMol/L (98-107); Creatinine (Component) 1.2 mg/dL (0.6-1.3); Estimated Creatinine Clearance 69.4 mL/min (>60); Glucose 114 mg/dL (74-106); Magnesium 2.4 mg/dL (1.6-2.6); Osmolality,Calculated 290 (275-295); Phosphorous 4.2 mg/dL (2.4-5.1); Potassium 5.0 mMol/L (3.4-5.1); Sodium 142 mMol/L (136-145); eGFR > 60 See Note
[2025-03-27] MEDS: ASPIRIN EC 81 MG TABEC PO (08:35)
[2025-03-27] MEDS: SPIRONOLACTONE 25 MG TABLET PO (08:36)
--- NOTE | 2025-03-27 10:48 | ESCONSULT_ITS ---
<Statement entered by Diana Arias MD - 03/27/25 21:31> Patient was seen and examined by me personally. I have reviewed the below documentation by the team resident and agree with its findings. Mr. 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 Patient endorsed progressive shortness of breath 3 days prior to admission with PND, denies orthopnea palpitations or chest pain. Patient noted to have elevated troponin, BNP and urine drug screen positive for methamphetamine on admission. Patient denies meth use for a year however reports that his friends around him have been smoking methamphetamine. On telemetry patient noted to have episodes of ventricular tachycardia which reverted to sinus rhythm, patient continues to have frequent PVCs and runs of nonsustained ventricular tachycardia on telemetry. Patient asymptomatic denies any symptoms. Patient denies following up with PCP outpatient, not established with cardiology. Will hold Lasix today, noted to have creatinine elevation to 1.2, patient on room air, no lower extremity edema, continue with fluid restriction Daily weights and strict intake and output. Will hold GDMT in setting of elevated creatinine, last dose lisinopril this morning, will assess renal function in a.m. and will transition patient to Entresto tomorrow evening if renal function is stable and blood pressure tolerates. Will introduce beta-blockade further as blood pressure tolerates, hold spironolactone for now. Will repeat echocardiogram. For episodes of V. tach, patient has severely reduced ejection fraction, does not follow-up with PCP outpatient likely noncompliant with GDMT, will start patient on amiodarone gtt., will transition to oral amiodarone on 03/29/2025, patient needs to be compliant with GDMT outpatient needs to establish care with cardiology and needs to be evaluated outpatient for ICD placement after following with cardiology. At bedside patient was explained in detail regarding high mortality of his current diagnosis, reinforced the importance of quitting methamphetamine use. Patient verbalized understanding. Thank you for the consult and allowing to participate in the care of the patient. Cardiology will continue to follow. Case discussed with Attending Physician Dr. Tommy Arias MD Internal Medicine PGY-2 Disclaimer: This note was dictated by speech recognition. Minor errors in institutional cook may be present due to voice recognition software. HPI Data of Consult Requesting Physician: Karishma Monge MD Admitting Provider: Karishma Monge MD Attending Provider: Karishma Monge MD Primary Care Provider: Gera Blake PA-C Consult Narrative History of present illness: History of Present Illness: Mr. Boo Rodriguez is 45yM with PMH of dilated cardiomyopathy, HFrEF (15% 10/2024), Methamphatamine abuse, nephrolithiasis, presented to the ED on 03/25/2025 due to worsening Shortness of breath. The symptom started about 3 days before admission, where it started to progressively worsen to the point where he repeatedly waken up during the sleep. At the time, he was having trouble walking even short distances. Denies any palpation, orthopnea, chest pain, diaphoresis or N/V. Patient does not have any history of asthma or COPD, or smoking history. He does have hx of meth abuse. When asked, patient answered he never took it for 2 months, however, does hang out with friends who uses meth. Patient has not been really compliant with prescribed medications. Based on his previous admission with similar reason, in Jan 2025, ECHO (11/06/2024) showed dilated cardiomyopathy HFrEF, LVEF 15%. Was given Bumex at the time. However, due to hx of meth use, LifeVest was not given. Patient was admitted for managment of acute hypoxic respiratory failure. Cardiology was consulted on 03/27 for management of acute exacerbation of decompensated HF. ED course: Vitals: Temp: 98.9F, CT:104, RR:24, BP:116/80, O2sat:95% RA Labs: WBC: 7.1, Hgb: 12.9, D-dimer: 787, HCO3:23.3, Cr:1.1, Glucose:110, HbA1c: 5.6, Troponin: 0.215, BNP:1664, TSH: 0.4, Free T4: 1.30 Urine positive for Methamphatamine. In ED, he was given Duoneb 3ml inh x1, IV Lasix 40mg x1, IV morphine 2mg x1, Nitroglycerin Onit 2% x1, IM Decadron 10mg x1. He was noted to have transient V.tac less than 5 secs in ED. 03/27: No Overnight events. Labs reviewed and patient examined at the bedside. Patient was noted to have transient V.tach episodes on telemetry that are nonsustained and he reverts to sinus rhythm. Patient currently has NSR with PVCs on telemetry. Patient will be started on amiodarone gtt., will transition to oral amiodarone 03/29. Patient still has wheezing in bilateral lungs. Trace edema on right lower leg. There is a component of possible noncompliance with GDMT, will hold Lasix and GDMT today patient noted to have STEPHENIE, creatinine 1.2, yesterday creatinine 0.9 will assess renal function in AM. 36-hour washout period for lisinopril, will start on Entresto tomorrow evening if renal function and blood pressure permissible. Will start on beta-amado metoprolol versus Coreg as blood pressure permits. And then will consider adding spironolactone. Patient was educated on the importance of abstaining from methamphetamine use and minimizing exposure to enviroments or individuals associated with meth use. Achieving sustained abstinence and should obtain negative urine toxicology results to proceed with outpatient cardiology evaluation for ICD placement due to HFrEF of 15% if patient does not respond to GDMT. cc:: cc: Karishma Monge MD Review of Systems Review of Systems Narrative Review of Systems: All 12 systems assessed and the patient denies unless otherwise stated in HPI Past Medical History Past Medical History Comments PMH COMMENT: Medical history: As stated above Surgical history: Denies Allergies: NKDA Medications: Aspirin 81mg po qd (not taking), Atorvastatin 40mg po hs (not taking), Carvedilol 3.125 mg po bid, Furosemide 40mg po bid, Lisinopril 10mg po qd, Spironolactone 25mg po qd, Hydroxyzine 10mg po (not sure if he is taking, but was prescribed) Family history: Noncontributory Social history: Denies smoking cigarettes, drinking alcohol or using other illicit drugs, Pt said he quitted meth 2 months ago, However, urine toxicology was positive for meth. Occupation: [employer] Exam Vital Signs Temp Pulse Resp BP Pulse Ox O2 Del Method O2 Flow Rate 97.4 F 88 18 101/71 96 Room Air 2 03/27/25 08:00 03/27/25 08:36 03/27/25 08:00 03/27/25 08:36 03/27/25 08:00 03/27/25 08:00 03/26/25 04:00 Narrative Exam General: No acute distress, well nourished, AAO x3 Eye: PERRL, EOMI, normal conjunctiva, no scleral icterus HENT: Normocephalic, atraumatic, hearing intact to conversation at normal volume, moist oral mucosa Neck: Supple, non-tender, no JVD, no lymphadenopathy Lungs: Non-labored respirations, symmetric chest rise, Clear to auscultate bilaterally, Wheezing on bilateral lungs Heart: Peripheral pulses intact bilaterally, Regular Rate and Rhythm. Abdomen: Soft, non-tender, non-distended, no palpable masses Musculoskeletal: Normal range of motion and strength, No visible joint swelling, Trace edema on right lower leg. Skin: Skin is warm, dry, no rashes or lesions. Psychiatric: Cooperative, appropriate mood and affect, Awake and alert, not agitated Neuro: Cranial nerves II-XII grossly intact. Strength 5/5 throughout. Sensations intact to light touch. Results Labs 03/29/25 04:56 03/29/25 04:56 Labs: Short CBC 03/27/25 Range/Units 05:15 WBC 6.5 (3.8-10.6) Thou/mm3 Hgb 14.1 (13.5-16.0) g/dL Hct 43.1 (41.0-53.0) % Plt Count 192 D (140-440) Thou/mm3 BMP 03/27/25 05:15 Sodium 142 Potassium 5.0 D Chloride 104 Carbon Dioxide 28.2 BUN 30 H Creatinine 1.2 Glucose 114 H Calcium 8.9 Liver Function 03/27/25 Range/Units 05:15 Albumin 4.3 (3.5-5.0) gm/dL ABG Interpretation ABG results: 03/25/25 20:19 ABG pH 7.43 ABG pCO2 35 ABG pO2 66 L ABG HCO3 23 ABG O2 Saturation 94 ABG Base Excess -1 Quality Measures Quality Measures VTE prophylaxis Medications Home Medications and Allergies Home Medications ?Medication ?Instructions ?Recorded ?Confirmed ?Type hydroxyzine HCl 10 mg tablet 10 mg PO QDAY ##0 2 03/27/25 History Allergies Allergy/AdvReac Type Severity Reaction Status Date / Time No Known Allergies Allergy Verified 03/25/25 16:41 Visit Medications Acetaminophen (Acetaminophen 325 Mg Tablet) 650 mg PO Q6H PRN PRN Reason: Fever >101.5 or pain 1-3 Stop: 04/24/25 22:01 Albuterol/Ipratropium (Albuterol/Ipratropium (Duoneb) Rt Melina 3 Ml Nebu) 3 ml INH Q6HRRT [facility] Stop: 04/25/25 00:59 Last Admin: 03/27/25 06:21 Dose: 3 ml Albuterol/Ipratropium (Albuterol/Ipratropium (Duoneb) Rt Melina 3 Ml Nebu) 3 ml INH Q4H PRN PRN Reason: SHORTNESS OF BREATH OR WHEEZE Stop: 04/24/25 22:01 Aspirin (Aspirin Ec 81 Mg Tabec) 81 mg PO QDAY [facility] Stop: 04/25/25 08:59 Last Admin: 03/27/25 08:35 Dose: 81 mg Atorvastatin Calcium (Atorvastatin Calcium 20 Mg Tablet) 40 mg PO HS [facility] Stop: 04/25/25 20:59 Last Admin: 03/26/25 21:57 Dose: 40 mg Carvedilol (Carvedilol 3.125 Mg Tablet) 3.125 mg PO BIDWM [facility] Stop: 04/25/25 07:59 Last Admin: 03/27/25 08:36 Dose: 3.125 mg Furosemide (Furosemide Inj 10 Mg/Ml 4ml Vial) 40 mg IVP BIDD [facility] Stop: 04/25/25 05:59 Last Admin: 03/27/25 06:38 Dose: 40 mg Heparin Sodium (Porcine) (Heparin Sod Inj 5000 Unit/Ml Vial) 5,000 unit SC Q12H [facility] Stop: 04/08/25 22:14 Last Admin: 03/26/25 21:57 Dose: 5,000 unit Lisinopril (Lisinopril 2.5 Mg Tablet) 10 mg PO QDAY [facility] Stop: 04/25/25 08:59 Last Admin: 03/27/25 08:35 Dose: 10 mg Sennosides (Senna Tablet) 1 tab PO QDAY PRN; Protocol PRN Reason: constipation Stop: 04/24/25 22:01 Spironolactone (Spironolactone 25 Mg Tablet) 25 mg PO QDAY [facility] Stop: 04/25/25 08:59 Last Admin: 03/27/25 08:36 Dose: 25 mg Discontinued Medications Albuterol/Ipratropium (Albuterol/Ipratropium (Duoneb) Rt Melina 3 Ml Nebu) 3 ml INH X1 ONE Stop: 03/25/25 16:54 Last Admin: 03/25/25 17:09 Dose: 3 ml Carvedilol (Carvedilol 3.125 Mg Tablet) 3.125 mg PO BIDWM [facility] Stop: 04/25/25 07:59 Dexamethasone Sodium Phosphate (Dexamethasone Sod Phos Inj 10 Mg/Ml Vial) 10 mg IM X1 ONE Stop: 03/25/25 16:54 Last Admin: 03/25/25 17:06 Dose: 10 mg Furosemide (Furosemide Inj 10 Mg/Ml 4ml Vial) 40 mg IVP X1 ONE Stop: 03/25/25 19:44 Last Admin: 03/25/25 21:20 Dose: 40 mg Furosemide (Furosemide 40 Mg Tablet) 40 mg PO QDAY [facility] Stop: 04/25/25 08:59 Furosemide (Furosemide 40 Mg Tablet) 40 mg PO BID [facility] Stop: 04/25/25 08:59 Furosemide (Furosemide Inj 10 Mg/Ml Vial 2 Ml) 20 mg IVP X1 ONE Stop: 03/26/25 05:30 Last Admin: 03/26/25 05:40 Dose: 20 mg Magnesium Sulfate (Magnesium Sulfate Ivpb) 2 gm in 50 mls @ 25 mls/hr IV X1 ONE Stop: 03/26/25 01:05 Last Admin: 03/25/25 23:27 Dose: 25 mls/hr Lisinopril (Lisinopril 2.5 Mg Tablet) 10 mg PO QDAY [facility] Stop: 04/25/25 08:59 Morphine Sulfate (Morphine Sulf Inj 4 Mg/Ml Vial) 2 mg IV X1 ONE Stop: 03/25/25 19:44 Last Admin: 03/25/25 21:20 Dose: 2 mg Nitroglycerin (Nitroglycerin Oint 2% 1 Inch Packet) 1 inch TOP X1 ONE Stop: 03/25/25 19:44 Last Admin: 03/25/25 21:21 Dose: 1 inch Assessment & Plan Plan Mr. Boo Rodriguez is 45yM with PMH of dilated cardiomyopathy, HFrEF (15% 10/2024), Methamphatamine abuse, nephrolithiasis, presented to the ED on 03/25/2025 due to worsening Shortness of breathe. Patient was admitted for managment of acute hypoxic respiratory failure. Cardiology was consulted on 03/27 for management of acute exacerbation of decompensated HF. #Acute Decompensated Heart Failure #Right and left systolic and diastolic heart failure, EF 15% (on ECHO 10/2024), NHYA class II #Dilated cardiomyopathy, history of methamphetamine abuse Presented to the hospital with progressively worsening SOB since 3 days, PND and orthopnea. Patient has history of chronic heart failure, has been admitted for exacerbation in the past. Patient does not follow-up with primary care physician outpatient, reports that he gets his medications from the hospital, reports taking Lasix 40 twice daily, Coreg 3.125 twice daily, lisinopril 10 mg daily and spironolactone 25 mg daily. However there is concern of medication noncompliance. Patient is not established with cardiology outpatient. Patient's underlying etiology most likely nonischemic cardiomyopathy secondary to his history of drug use, Urine toxicology positive for Meth use. He also has hx of methamphetamine use. However patient denies methamphetamine use, reports last use was about a year ago, reports sitting with his friends while they are smoking. In ED, Pulse rate was 104, RR: 24. Elevated D dimer of 787, Troponin 0.215, BNP of 1664 CXR (03/25/2025) shows mild vascular congestion. TSH 0.40, free T4 1.3, -03/17-patient seen at bedside today, trace right lower extremity edema noted, saturating well on room air, bilateral wheezing appreciated. Echocardiogram 11/06/24: Dilated cardiomyopathy LVEDD 8cm. Global LV systolic function is severely decreased with normal wall thickness. Estimated EF at 15 % The RV is normal in size. The RV systolic function is moderately decreased. Severely increased LA volume 63.3 mL/m?. Mild to moderate mitral regurgitation Plan: -Hold Lasix secondary to STEPHENIE, continue fluid restriction, strict intake and output, low-sodium diet -There is a component of possible noncompliance with GDMT, will hold Lasix and GDMT today patient noted to have STEPHENIE, creatinine 1.2, yesterday creatinine 0.9 will assess renal function in AM. -36-hour washout period for lisinopril, will start on Entresto tomorrow evening if renal function and blood pressure permissible. -Will start on beta-amado metoprolol versus Coreg as blood pressure permits. And then will consider adding spironolactone. -Patient was educated on the importance of abstaining from methamphetamine use and minimizing exposure to enviroments or individuals associated with meth use. Achieving sustained abstinence and should obtain negative urine toxicology results to proceed with outpatient cardiology evaluation for ICD placement due to HFrEF of 15% if patient does not respond to GDMT. -Keep Mg>2 and K>4 at all times -Will repeat echocardiogram to assess RV/LV function and ejection fraction. Last echocardiogram in October. - Obtain iron panel in a.m. #NSTEMI type II, demand ischemia Presented with troponin elevation 0.225, which downtrended to 0.177, no chest pain on presentation. EKG shows Sinus rhythm, left bundle branch block, QRS 134 Likely due to demand ischemia in the setting of decompensated HF and dilated cardiomyopathy due to methamphetamine abuse. -03/27: Patient's current symptom is mild SOB. Tele monitoring showed NSR with PVCs Plan: -Monitor for chest pain and symptoms -Continue aspirin and statin -Patient will need outpatient cardiac catheterization for further evaluation #Nonsustained ventricular tachycardia Patient noted to have multiple runs of V. tach on telemetry, nonsustaining reverting back to sinus with PVCs. Patient asymptomatic. Patient during these episodes had no electrolyte imbalances per chart review. Patient has severely reduced ejection fraction, EF 15% - Will start on amiodarone gtt. - Advised to achieve sustained abstinence and should obtain negative urine toxicology results to proceed with outpatient cardiology evaluation for ICD placement due to HFrEF of 15% if patient does not respond to GDMT. #Dyslipidemia Lipid panel 02/04/2025: Triglycerides 196, cholesterol 173, LDL 93, HDL 41 -Continue atorvastatin 40 mg at bedtime #Acute Hypoxic Respiratory Failure, resolved #Acute kidney injury #Methamphetamine use Management per primary team Thank you for the consult and allowing to participate in the care of the patient. Cardiology will continue to follow. Case discussed with Attending Physician Dr. Tommy Davila MD and senior resident Diana Arias MD PGY 2 Rey Doty DO Internal Medicine PGY-1 Attending Provider Attestation/Addendum I have personally seen and examined the patient separately on the above date of service and discussed the plan of care with the resident. I reviewed the resident Dr. Rey Doty / Diana Arias consultation progress note and agree with the resident findings and plan in the note above and have also edited the documentation to reflect my findings and plan. Tommy Davila M.D. Interventional Cardiology
[2025-03-27] MEDS: HEPARIN SOD INJ 5000 UNIT/ML VIAL SC ×2 (12:09→21:17)
--- NOTE | 2025-03-27 13:56 | ESPR_ITS ---
<Statement entered by Devin Leyva MD - 03/27/25 16:24> No acute events overnight. Seen and examined at bedside and patient resting comfortably in bed. Able to lay flat without endorsing shortness of breath and saturating well on room air. On exam, no lower extremity edema and only mild crackles appreciated on lung auscultation. Will continue with Lasix 40 mg IV twice daily, monitor I's and O's, and continue GDMT. Cardiology following, appreciate recommendations. CBC unremarakble, chem panel largely unermarkable though K noted increased from 4 to 5 while on spironolactone and lisinopril. Anticipate discharge in next 24 to 48 hours. ----- Note reviewed and agree with care plan as documented. Please refer to the note below for further details. Plan discussed with attending physician Dr. Teresa Leyva MD PGY-2 Internal Medicine Documentation for date of: 03/27/25 Subjective Subjective Interval history: Acute events overnight. Patient seen and examined at bedside while lying down flat. Saturating well on room air. Patient denies shortness of breath, chest pain, abdominal pain, lower extremity tenderness. Getting diuresis. Vital stable labs reviewed and unremarkable except for potassium of 5.0. Will continue to monitor potassium if still elevated might decrease dosage of the lisinopril and spironolactone. Exam Vital Signs Temp Pulse Resp BP Pulse Ox O2 Del Method O2 Flow Rate 98.2 F 86 18 91/75 96 Room Air 2 03/27/25 12:00 03/27/25 12:19 03/27/25 12:19 03/27/25 12:00 03/27/25 12:19 03/27/25 12:00 03/26/25 04:00 Narrative Exam General: Alert, no acute distress.Conversational and non-toxic appearing. Skin: Warm, dry, intact. No rash or ecchymoses. Head: Normocephalic, atraumatic. Eye: Normal conjunctiva, PERRL. Throat: Oral mucosa moist. No obvious lesions in oropharynx. Cardiovascular: Regular rate and rhythm, no murmur, +S1/S2. Respiratory: Lungs are clear to auscultation, respirations unlabored, no crackles, no wheezing. Gastrointestinal: Soft, nontender, non-distended. No guarding or rebound tenderness. Extremities: 1+ pitting edema to knees (improving), no cyanosis, no clubbing. Neuro: Alert and oriented x3.No focal deficits observed. Conversant, moving all extremities. No overt cerebellar signs/incoordination. Psychiatric: Cooperative, appropriate affect Objective Labs 03/28/25 05:48 03/28/25 05:48 Labs: Laboratory Results - last 24 hr 03/27/25 05:15 WBC 6.5 RBC 4.40 L Hgb 14.1 Hct 43.1 MCV 98 MCH 32.0 MCHC 32.7 RDW Std Deviation 52.2 H Plt Count 192 D Neut % (Auto) 60 Lymph % (Auto) 24 Jones % (Auto) 12 Eos % (Auto) 2 Baso % (Auto) 1 Neut # (Auto) 3.9 Lymph # (Auto) 1.6 Jones # (Auto) 0.8 Eos # (Auto) 0.2 Baso # (Auto) 0.1 Immature Gran # (Auto) 0.03 H Absolute Nucleated RBC 0.00 Immature Gran % 1 H Nucleated RBC % 0 Sodium 142 Potassium 5.0 D Chloride 104 Carbon Dioxide 28.2 Anion Gap 10 BUN 30 H Creatinine 1.2 Estim Creat Clear Calc 69.4 eGFR > 60 BUN/Creatinine Ratio 25 H Glucose 114 H Calculated Osmolality 290 Calcium 8.9 Corrected Calcium 8.9 Phosphorus 4.2 Magnesium 2.4 Albumin 4.3 ABG Interpretation ABG results: 03/25/25 20:19 ABG pH 7.43 ABG pCO2 35 ABG pO2 66 L ABG HCO3 23 ABG O2 Saturation 94 ABG Base Excess -1 Quality Measures Quality Measures VTE prophylaxis Assessment & Plan Assessment Current Active Medications: Generic Name Dose Route Start Last Admin Trade Name Freq PRN Reason Stop Dose Admin Acetaminophen 650 mg 03/25/25 22:02 Acetaminophen 325 Mg Tablet PO 04/24/25 22:01 Q6H PRN Fever >101.5 or pain 1-3 Albuterol/Ipratropium 3 ml 03/26/25 01:00 03/27/25 12:19 Albuterol/Ipratropium (Duoneb) Rt Melina 3 Ml Nebu INH 04/25/25 00:59 3 ml Q6HRRT YUE Administration Albuterol/Ipratropium 3 ml 03/25/25 22:02 Albuterol/Ipratropium (Duoneb) Rt Melina 3 Ml Nebu INH 04/24/25 22:01 Q4H PRN SHORTNESS OF BREATH OR WHEEZE Aspirin 81 mg 03/26/25 09:00 03/27/25 08:35 Aspirin Ec 81 Mg Tabec PO 04/25/25 08:59 81 mg QDAY YUE Administration Atorvastatin Calcium 40 mg 03/26/25 21:00 03/26/25 21:57 Atorvastatin Calcium 20 Mg Tablet PO 04/25/25 20:59 40 mg HS YUE Administration Carvedilol 3.125 mg 03/26/25 08:00 03/27/25 08:36 Carvedilol 3.125 Mg Tablet PO 04/25/25 07:59 3.125 mg BIDWM YUE Administration Furosemide 40 mg 03/26/25 06:00 03/27/25 06:38 Furosemide Inj 10 Mg/Ml 4ml Vial IVP 04/25/25 05:59 40 mg BIDD YUE Administration Heparin Sodium (Porcine) 5,000 unit 03/25/25 22:15 03/27/25 12:09 Heparin Sod Inj 5000 Unit/Ml Vial SC 04/08/25 22:14 5,000 unit Q12H YUE Administration Lisinopril 10 mg 03/26/25 09:00 03/27/25 08:35 Lisinopril 2.5 Mg Tablet PO 04/25/25 08:59 10 mg QDAY YUE Administration Sennosides 1 tab 03/25/25 22:02 Senna Tablet PO 04/24/25 22:01 QDAY PRN constipation Protocol Spironolactone 25 mg 03/26/25 09:00 03/27/25 08:36 Spironolactone 25 Mg Tablet PO 04/25/25 08:59 25 mg QDAY YUE Administration Plan Patient is a 45-year-old male with a medical history of dilated cardiomyopathy, meth abuse, and HFrEF (15% 11/06), dyslipidemia, and primary hypertension who presented to [facility] ED on 03/25/25 for shortness of breath. The patient was admitted for management of acute hypoxic respiratory failure. #Acute hypoxic respiratory failure (resolving) #Acute on chronic HFrEF (LVEF 15%, 11/06) #Dilated cardiomyopathy Presented with shortness of breath, wheezing, orthopnea, and bilateral lower extremity edema Trigger for exacerbation likely continued methamphetamine usage +/- medication noncompliance On admission chest x-ray showed vascular congestion with early septal edema, BNP 1664, 11/06/2024 echo revealed dilated cardiomyopathy with EF 15%. Echocardiogram on 11/06/2024 shows dilated cardiomyopathy with estimated EF at 15%, severely increased LA volume, and mild to moderate mitral regurgitation Plan: - Lasix 40 mg IV twice daily - spironolactone 25 mg p.o. twice daily - DuoNebs every 6 hours with additional every 4 hours as needed - Coreg 3.125 mg twice daily - Strict ins and out, Fluid restriction 1200 cc, cardiac diet - Continue IV diuresis patient will continue to uptitrate goal-directed medical therapy as blood pressure allows. Net -1 L thus far and goal of 1.5 to 2 L diuresis for hospitalization. - will continue to juvenile counselor patient on medication compliance, follow-up, and cessation of substances #NSTEMI type II (resolve) Elevated troponin most likely secondary to demand ischemia in the setting of continued methamphetamine abuse and severe CHF Troponin peaked at 0.225, no complaints of chest pain at this time Plan: - Continue aspirin and statin therapy. - Monitor on telemetry. EKG as needed if chest pain develops. Patient develops symptoms then we will consult cardiology. #Methamphetamine positive Urine toxicology in ED positive for methamphetamine Plan: - Counseled patient on methamphetamine cessation, patient is unlikely to be a candidate for LifeVest given his methamphetamine use #Dyslipidemia Plan: - Continue atorvastatin 40 mg p.o. at bedtime - Pending lipid panel Hospital management: Lines: peripheral IV Diet: Low sodium, cardiac, fluid restriction 1200 cc Bowel: Senna GI prophylaxis: N/A DVT prophylaxis: Heparin Disposition: Admitted to telemetry for acute CHF exacerbation CODE STATUS: Full code Patient assessed under supervision of attending physician and senior resident Dr. Leyva PGY-2 Eboni Jarrell MD PGY-1, Internal Medicine Please note: this document was transcribed using voice recognition technology; minor inaccuracies may be present. Attending Provider Attestation/Addendum I have examined the patient, reviewed labs and imaging findings, discussed the case with the resident(s), and reviewed entered orders. I agree with the plan of care as outlined in this note. Dr. Teresa MD
--- NOTE | 2025-03-27 19:21 | ECHO_ITS ---
Patient Info Name: Boo Rodriguez Age: 45 years : 1980 Gender: Male Ht: 168 cm Wt: 77 kg BSA: 1.91 m2 BP: 110 / 61 mmHg HR: 58 bpm Exam Date: 03/28/2025 8:03 AM Admit Date: 03/25/2025 Site: [facility] Room Number: 260 Patient Status: I Exam Type: CA echo doppler complete Rodent Control Worker: Tosin Montoya Ordering Physician: Diana Arias Study Info Indications HFreF, Assess Right heart function - Primary Location: S2NX Left Ventricular Outflow Tract Name Value Normal LVOT 2D LVOT Diameter 2.3 cm LVOT Doppler LVOT Peak Velocity 63 cm/s LVOT Mean Gradient 1 mmHg LVOT VTI 10 cm LVOT VTI/AV VTI Ratio 0.3 LVOT Stroke Volume 43 ml Pulmonic Valve Name Value Normal PV Regurgitation Doppler MT Peak End Diastolic Velocity 68 cm/s Mitral Valve Name Value Normal MV Doppler MV [place] 437 cm/s2 MV PHT 63 ms MV Area (PHT) 3.5 cm2 4.0-5.0 MV Regurgitation Doppler MV EROA (PISA) 0.22 cm2 MR Volume (PISA) 21 ml MV Diastolic Function MV E Peak Velocity 95 cm/s MV A Peak Velocity 52 cm/s MV E/A 1.8 MV Annular TDI MV Septal e' Velocity 5.6 cm/s MV E/e' (Septal) 17.0 MV Lateral e' Velocity 6.5 cm/s MV E/e' (Lateral) 14.7 MV e' Average 6.00 cm/s MV E/e' (Average) 15.9 Tricuspid Valve Name Value Normal TV Regurgitation Doppler TR Peak Velocity 264 cm/s Estimated PAP/RSVP RA Pressure 3 mmHg <=5 PA Systolic Pressure 31 mmHg <36 RV Systolic Pressure 31 mmHg <36 TV Annular TDI TV Lateral Zenaida s' Velocity 8.0 cm/s >=9.5 Aorta Name Value Normal Thoracic Aorta Distal Ao Arch Diameter 2.6 cm Aortic Valve Name Value Normal AV 2D/MM AV Cusp Sep (MM) 2.2 cm AV Doppler AV Peak Velocity 166 cm/s AV Mean Gradient 7 mmHg AV VTI 31 cm AV Area (Cont Eq VTI) 1.4 cm2 >=3.0 AV Area (Cont Eq Gunnar) 1.6 cm2 AV DI (Gunnar) 0.38 AV Regurgitation 2D LVOT Area 4.2 cm2 Ventricles Name Value Normal LV Dimensions 2D/MM IVS Diastolic Thickness (2D) 0.9 cm 0.6-1.0 LVID Diastole (2D) 8.1 cm 4.2-5.8 LVIW Diastolic Thickness (2D) 0.9 cm 0.6-1.0 LVID Systole (2D) 7.1 cm 2.5-4.0 LVOT Diameter 2.3 cm LV Mass (2D Cubed) 365.73 g 88.00-224.00 LV Mass Index (2D Cubed) 192 g/m2 49-115 Relative Wall Thickness (2D) 0.22 <=0.42 IVS/LVIW Diastolic Thickness (2D) 1.00 0.00-1.50 LV Fractional Shortening/Ejection Fraction 2D/MM LV Fractional Shortening (2D) 12 % 25-43 LV EF (2D Teichholz) 26 % RV Dimensions 2D/MM TV Lateral Zenaida s' Velocity 8.0 cm/s >=9.5 Atria Name Value Normal LA Dimensions LA Volume (4C A-L) 92 ml LA Volume (BP A-L) 94 ml Left Ventricle Left ventricular chamber dimension is severely enlarged. Left ventricular systolic function is severely reduced with visually estimated ejection fraction of 15-20%. There is normal geometry noted in the left ventricle. Left ventricular segmental wall motion is normal. There is grade I diastolic dysfunction in the left ventricle. Right Ventricle Right ventricular chamber dimension is normal. Right ventricular systolic function is reduced. Left Atrium Left atrial chamber dimension is severely enlarged. Right Atrium Right atrial chamber dimension is mildly enlarged. Aortic Valve The aortic valve is trileaflet. There is mild aortic valve sclerosis. There is no aortic valve stenosis with a peak velocity of 166 cm/s, mean gradient of 7 mmHg, and aortic valve area of 1.4 cm2. There is mild aortic valve regurgitation. Pulmonic Valve The pulmonic valve is normal. There is no pulmonic valve stenosis. There is trace pulmonic regurgitation. Mitral Valve The mitral valve has normal leaflets. There is no mitral valve stenosis. There is mild to moderate mitral valve regurgitation. Tricuspid Valve The tricuspid valve leaflets are normal. There is no tricuspid valve stenosis. There is mild tricuspid valve regurgitation. No pulmonary hypertension, estimated pulmonary arterial systolic pressure is 31 mmHg and systemic blood pressure of 110 mmHg in systole. Pericardium/Pleural The pericardium appears normal. There is no pericardial effusion. No pleural effusion visualized. Inferior Vena Cava Normal inferior vena cava with >50% collapse upon inspiration consistent with normal right atrial pressure, 3 mmHg. Aorta The aortic measurements are indexed to age and body surface area. The aortic root at the sinus of Valsalva is not well visualized. The prox ascending aorta is not well visualized. Summary 1. Severely enlarged LV at 8.1 cm and systolic function is severely reduced. Estimated ejection fraction is < 15%. There is grade II diastolic dysfunction. 2. Right ventricle chamber size is normal and systolic function is reduced. Mildly elevated RVSP and estimated at 36 mmHg. 3. There is mild aortic valve sclerosis. Mild aortic regurgitation. 4. There is mild to moderate eccentric mitral valve regurgitation. Mildly dilated LA. 5. There is mild tricuspid valve regurgitation and trace PI. No pericardial effusion. Report Signatures Finalized by Tommy Davila on 03/29/2025 11:52 PM
[2025-03-27] MEDS: AMIODARONE 150 MG IVPB 150 MG/100 ML BAG 600 MG IV (19:32)
[2025-03-27] MEDS: AMIODARONE 360 MG IVPB 360 MG/200 ML BAG 33.333 MG IV (19:41)
[2025-03-27] MEDS: ATORVASTATIN CALCIUM 20 MG TABLET 40 MG PO (20:17)
[2025-03-28] VITALS (12 sets, daily range): BP systolic 105–113; BP diastolic 61–85; PULSE 69–79; RESP 17–95; TEMP 36.1–36.6; O2SAT 93–100; BMI 26.8
[2025-03-28] MEDS: ALBUTEROL/IPRATROPIUM (Duoneb) RT SOL 3 ML NEBU INH ×2 (00:16→06:39)
[2025-03-28] MEDS: AMIODARONE 360 MG IVPB 360 MG/200 ML BAG 16.667 MG IV ×2 (01:05→14:44)
[2025-03-28 05:59] LABS: Basophils # (Auto) 0.1 Thou/mm3 (0.0-0.2); Basophils % (Auto) 1 % (0-2.5); Eosinophils # (Auto) 1.0 Thou/mm3 (0.0-0.5); Eosinophils % (Auto) 13 % (0-10); Hematocrit 46.6 % (41.0-53.0); Hemoglobin 15.3 g/dL (13.5-16.0); Immature Granulocytes Auto 0.06 Thou/mm3 (0.00-0.00); Lymphocytes # (Auto) 2.2 Thou/mm3 (1.0-4.8); Lymphocytes % (Auto) 29 % (10-50); Mean Corpuscular HGB Conc 32.8 g/dl (31.0-37.0); Mean Corpuscular Hemoglobin 32.2 pg (25.0-35.0); Mean Corpuscular Volume 98 fL (80-100); Monocytes # (Auto) 0.9 Thou/mm3 (0.0-0.8); Monocytes % (Auto) 12 % (0-12); Neutrophils # (Auto) 3.3 Thou/mm3 (1.8-7.7); Neutrophils % (Auto) 44 % (37-80); Nucleated Red Blood Cell # 0.00 Thou/mm3 (0.00-0.00); Nucleated Red Blood Cell % 0 /100 WBC (0); Platelet Count 185 Thou/mm3 (140-440); RDW Standard Deviation 51.6 fL (35.1-43.9); Red Blood Count 4.75 Miln/mm3 (4.50-5.90); White Blood Count 7.5 Thou/mm3 (3.8-10.6)
[2025-03-28 06:24] LABS: Albumin, Serum 4.2 gm/dL (3.5-5.0); Anion Gap 11 (7-16); BUN/Creatinine Ratio 20 Ratio (12-20); Blood Urea Nitrogen 24 mg/dL (9-23); Calcium 9.3 mg/dL (8.3-10.6); Calcium (Corrected) 9.3 mg/dL (8.5-10.1); Carbon Dioxide 27.3 mMol/L (20.0-31.0); Chloride 101 mMol/L (98-107); Creatinine (Component) 1.2 mg/dL (0.6-1.3); Estimated Creatinine Clearance 69.4 mL/min (>60); Glucose 91 mg/dL (74-106); Magnesium 2.2 mg/dL (1.6-2.6); Osmolality,Calculated 281 (275-295); Phosphorous 5.1 mg/dL (2.4-5.1); Potassium 4.1 mMol/L (3.4-5.1); Sodium 139 mMol/L (136-145); eGFR > 60 See Note
[2025-03-28 06:37] LABS: Cardiac Risk Estimate 3.7 RATIO (4.0-6.7); Cholesterol 156 mg/dL (132-200); HDL Cholesterol 42 mg/dL (40-60); LDL Cholesterol,Calculated 72 mg/dL (0-130); Triglycerides 210 mg/dL (30-150)
[2025-03-28 06:46] LABS: Iron 59 mcg/dL (65-175); Percent Iron Saturation 18 % (20-55); Total Iron Binding Capacity 312 mcg/dL (250-425); Unsaturated Iron Binding 253 (225-295)
--- NOTE | 2025-03-28 08:25 | PC.NURSE ---
RT CALLED AND PT PLACED ON BIPAP. PT C/O NOT BEING ABLE TO BREATH AND WANTS MASK ON. RT ARRIVED AND PLACED PT ON BIPAP @ FI02 70%.
--- NOTE | 2025-03-28 09:00 | PC.NURSE ---
PT VERY AGITATED WITH BIPAP MASK. PT STATES THAT HE HEARS A NOISE EVERY TIME HE TAKES A BREATH. EXPLAINED TO PT THAT IT WAS THE BIPAP'S OXYGEN. PT PULLED MASK OFF. CALLED RT AND WAS INSTRUCTED TO PLACE ON OXYMASK AT 15 L/M. PT IS TOLERATING MASK AT THIS TIME WITH SPO2 @96% AND RELAXED. CALL LIGHT WITH IN REACH.
--- NOTE | 2025-03-28 09:13 | ESPR_ITS ---
<Statement entered by Devin Leyva MD - 03/28/25 13:54> No acute overnight events. Seen and examined at bedside. Currently on room air but some crackles appreciated on exam. Denies chest pain or shortness of breath. He was noted to have multiple episodes of non-sustained VT on telemetry with frequent PVCs in between for which cardiology started patient on amiodarone gtt with plans to transition to PO amiodarone on 03/29. Additionally, currently undergoing washout period from lisinopril with plans to start entresto for GDMT with plans to start beta-amado and spironolactone if BP and renal function permit. Vital signs stable as he is on room air, afebrile, and hemodynamically stable. CBC unremarkable. Chem panel showing K > 4 and Mg > 2. Iron panel showing mild iron deficiency. Will continue amiodarone at this time, follow-up echo results, and follow-up cardiology recommendations. ----- Note reviewed and agree with care plan as documented. Please refer to the note below for further details. Plan discussed with attending physician Dr. Teresa Leyva MD PGY-2 Internal Medicine Documentation for date of: 03/28/25 Subjective Subjective Interval history: No acute events overnight. Cardiology held lasix due to creatinine admission was 1.2. Also held GDMT-lisinopril, spironolactone, Coreg and plan to transition to Entresto after lasix washout and depending on the renal function stability and if blood pressure tolerates. Also repeat echocardiogram to assess RV/LV function and ejection fraction(last echo in October). Due to multiple nonsustaining V. tach on telemetry, nonsustaining reverting back to sinus with PVCs, cardiology started the patient on amiodarone gtt. Today patient was seen and examined at bedside. Noted shortness of breath upon conversation and episode of coughing fit. Vital stable. Saturating 93% on room air.Labs significant for downtrending K of4.1, iron panel shows iron of 59 and iron saturation of 18. Will follow-up with cardiology recommendations. Exam Vital Signs Temp Pulse Resp BP Pulse Ox O2 Del Method O2 Flow Rate 97.0 F 78 20 110/61 95 Room Air 2 03/28/25 04:00 03/28/25 06:39 03/28/25 06:39 03/28/25 04:00 03/28/25 06:39 03/28/25 04:00 03/26/25 04:00 Narrative Exam General: Alert, no acute distress.Conversational and non-toxic appearing. Skin: Warm, dry, intact. No rash or ecchymoses. Head: Normocephalic, atraumatic. Eye: Normal conjunctiva, PERRL. Throat: Oral mucosa moist. No obvious lesions in oropharynx. Cardiovascular: Regular rate and rhythm, no murmur, +S1/S2. Respiratory: Lungs are clear to auscultation, respirations unlabored, no crackles, no wheezing. Gastrointestinal: Soft, nontender, non-distended. No guarding or rebound tenderness. Extremities: left extremities +1 pititng edema, no cyanosis, no clubbing. Neuro: Alert and oriented x3.No focal deficits observed. Conversant, moving all extremities. No overt cerebellar signs/incoordination. Psychiatric: Cooperative, appropriate affect Objective Labs 03/29/25 04:56 03/29/25 04:56 Labs: Laboratory Results - last 24 hr 03/28/25 05:48 WBC 7.5 RBC 4.75 Hgb 15.3 Hct 46.6 MCV 98 MCH 32.2 MCHC 32.8 RDW Std Deviation 51.6 H Plt Count 185 Neut % (Auto) 44 Lymph % (Auto) 29 Cochran % (Auto) 12 Eos % (Auto) 13 H Baso % (Auto) 1 Neut # (Auto) 3.3 Lymph # (Auto) 2.2 Cochran # (Auto) 0.9 H Eos # (Auto) 1.0 H Baso # (Auto) 0.1 Immature Gran # (Auto) 0.06 H Absolute Nucleated RBC 0.00 Immature Gran % 1 H Nucleated RBC % 0 Sodium 139 Potassium 4.1 D Chloride 101 Carbon Dioxide 27.3 Anion Gap 11 BUN 24 H Creatinine 1.2 Estim Creat Clear Calc 69.4 eGFR > 60 BUN/Creatinine Ratio 20 Glucose 91 Calculated Osmolality 281 Calcium 9.3 Corrected Calcium 9.3 Phosphorus 5.1 Magnesium 2.2 Iron 59 L TIBC 312 Iron Saturation 18 L Unsat Iron Binding 253 Albumin 4.2 Triglycerides 210 H Cholesterol 156 LDL Cholesterol, Calc 72 HDL Cholesterol 42 Cholesterol/HDL Ratio 3.7 L ABG Interpretation ABG results: 03/25/25 20:19 ABG pH 7.43 ABG pCO2 35 ABG pO2 66 L ABG HCO3 23 ABG O2 Saturation 94 ABG Base Excess -1 Quality Measures Quality Measures VTE prophylaxis Assessment & Plan Assessment Current Active Medications: Generic Name Dose Route Start Last Admin Trade Name Freq PRN Reason Stop Dose Admin Acetaminophen 650 mg 03/25/25 22:02 Acetaminophen 325 Mg Tablet PO 04/24/25 22:01 Q6H PRN Fever >101.5 or pain 1-3 Albuterol/Ipratropium 3 ml 03/26/25 01:00 03/28/25 06:39 Albuterol/Ipratropium (Duoneb) Rt Melina 3 Ml Nebu INH 04/25/25 00:59 3 ml Q6HRRT YUE Administration Albuterol/Ipratropium 3 ml 03/25/25 22:02 Albuterol/Ipratropium (Duoneb) Rt Melina 3 Ml Nebu INH 04/24/25 22:01 Q4H PRN SHORTNESS OF BREATH OR WHEEZE Aspirin 81 mg 03/26/25 09:00 03/27/25 08:35 Aspirin Ec 81 Mg Tabec PO 04/25/25 08:59 81 mg QDAY YUE Administration Atorvastatin Calcium 40 mg 03/26/25 21:00 03/27/25 20:17 Atorvastatin Calcium 20 Mg Tablet PO 04/25/25 20:59 40 mg HS YUE Administration Heparin Sodium (Porcine) 5,000 unit 03/25/25 22:15 03/27/25 21:17 Heparin Sod Inj 5000 Unit/Ml Vial SC 04/08/25 22:14 5,000 unit Q12H YUE Administration Amiodarone HCl/Dextrose 360 mg in 200 mls @ 16.667 mls/hr 03/27/25 18:55 03/28/25 01:05 Nexterone Ivpb IV 03/28/25 18:54 16.667 mls/hr .Q12H YUE Administration Sennosides 1 tab 03/25/25 22:02 Senna Tablet PO 04/24/25 22:01 QDAY PRN constipation Protocol Plan Patient is a 45-year-old male with a medical history of dilated cardiomyopathy, meth abuse, and HFrEF (15% 11/06), dyslipidemia, and primary hypertension who presented to [facility] ED on 03/25/25 for shortness of breath. The patient was admitted for management of acute hypoxic respiratory failure. #CHF exacerbation (resolving) #Acute on chronic HFrEF (LVEF 15%, 11/06) #Dilated cardiomyopathy 2/2 methamphetamine use Presented with shortness of breath, wheezing, orthopnea, and bilateral lower extremity edema Trigger for exacerbation likely continued methamphetamine usage +/- medication noncompliance On admission chest x-ray showed vascular congestion with early septal edema, BNP 1664, 11/06/2024 echo revealed dilated cardiomyopathy with EF 15%. Echocardiogram on 11/06/2024 shows dilated cardiomyopathy with estimated EF at 15%, severely increased LA volume, and mild to moderate mitral regurgitation Car Plan - Strict ins and out, Fluid restriction 1200 cc, cardiac diet - Cardiology consulted- recommendation appreciated- held Lasix 40 mg, spironolactone 25 mg, Coreg 3.125 mg. Repeat echocardiogram to assess RV/LV function and ejection fraction. Plan to transition to Entresto after lasix washout - DuoNebs every 6 hours with additional every 4 hours as needed - will continue to certified credit counselor patient on medication compliance, follow-up, and cessation of substances #Nonsustained ventricular tachycardia Patient noted to have multiple runs of V. tach on telemetry, nonsustaining reverting back to sinus with PVCs. Patient asymptomatic. Patient during these episodes had no electrolyte imbalances per chart review. Patient has severely reduced ejection fraction, EF 15% PLan - Amiodarone gtt (03/27- - Will transition to oral amiodarone on 03/29/2025 #Methamphetamine positive Urine toxicology in ED positive for methamphetamine Plan: - Counseled patient on methamphetamine cessation, patient is unlikely to be a candidate for LifeVest given his methamphetamine use #Dyslipidemia Plan: - Continue atorvastatin 40 mg p.o. at bedtime - Pending lipid panel #Iron Deficiency,mild Fe 59, Fe saturation 18, TIBC 312 (normal). Iron studies were ordered by tub puller given the high prevalence and prognostic significance of iron deficiency in HFrEF. Iron deficiency in HFrEF is associated with increased hospitalizations, worse functional capacity, higher mortality. Even thought patient doesnt have s/s of PHILLIP, if level are low might worsen fatigue, dyspnea, exercise intolerance, and quality of life, even without anemia. Plan - Pending Ferritin level - CTM for symptomatic PHILLIP #NSTEMI type II (resolve) Elevated troponin most likely secondary to demand ischemia in the setting of continued methamphetamine abuse and severe CHF Troponin peaked at 0.225, no complaints of chest pain at this time Plan: - Continue aspirin and statin therapy. - Monitor on telemetry. EKG as needed if chest pain develops. Patient develops symptoms then we will consult cardiology. Hospital management: Lines: peripheral IV Diet: Low sodium, cardiac, fluid restriction 1200 cc Bowel: Senna GI prophylaxis: N/A DVT prophylaxis: Heparin Disposition: Admitted to telemetry for acute CHF exacerbation CODE STATUS: Full code Patient assessed under supervision of attending physician and senior resident Dr. Leyva PGY-2 Eboni Jarrell MD PGY-1, Internal Medicine Please note: this document was transcribed using voice recognition technology; minor inaccuracies may be present. Attending Provider Attestation/Addendum I have examined the patient, reviewed labs and imaging findings, discussed the case with the resident(s), and reviewed entered orders. I agree with the plan of care as outlined in this note. Dr. Teresa MD
--- NOTE | 2025-03-28 09:16 | PD.RESPRO ---
Documentation for date of: 03/28/25 Subjective Subjective Interval history: Patient seen and examined at bedside, no current complaints. Telemetry reviewed. Patient on amiodarone drip, will start on oral amiodarone 200 mg p.o. twice daily this evening. Patient's blood pressure is soft, will start GDMT with half tablet Entresto in the evening. Minimally low iron reserve, IV iron x 1 Will follow renal function and blood pressure in a.m., will consider adding beta-amado in AM. Exam Vital Signs Temp Pulse Resp BP Pulse Ox O2 Del Method O2 Flow Rate 97.0 F 78 20 110/61 95 Room Air 2 03/28/25 04:00 03/28/25 06:39 03/28/25 06:39 03/28/25 04:00 03/28/25 06:39 03/28/25 04:00 03/26/25 04:00 Narrative Exam Physical Exam General: Awake and in no acute distress. Conversational and non-toxic appearing. HEENT: Normocephalic, atraumatic, mucous membranes moist. Heart: Regular rate and rhythm, no murmurs. Lungs: Clear to auscultation with no wheezing or crackles. Abdomen: Soft, nondistended, nontender, positive bowel sounds. ?No guarding or rebound tenderness. Neurologic: Alert and oriented x3, no gross neurological deficit, and patient able to move all 4 extremities. Extremities: Trace bilateral lower extremity edema. Skin: No rash or ecchymoses. Objective Labs 03/29/25 04:56 03/29/25 04:56 Labs: Laboratory Results - last 24 hr 03/28/25 05:48 WBC 7.5 RBC 4.75 Hgb 15.3 Hct 46.6 MCV 98 MCH 32.2 MCHC 32.8 RDW Std Deviation 51.6 H Plt Count 185 Neut % (Auto) 44 Lymph % (Auto) 29 Phelps % (Auto) 12 Eos % (Auto) 13 H Baso % (Auto) 1 Neut # (Auto) 3.3 Lymph # (Auto) 2.2 Phelps # (Auto) 0.9 H Eos # (Auto) 1.0 H Baso # (Auto) 0.1 Immature Gran # (Auto) 0.06 H Absolute Nucleated RBC 0.00 Immature Gran % 1 H Nucleated RBC % 0 Sodium 139 Potassium 4.1 D Chloride 101 Carbon Dioxide 27.3 Anion Gap 11 BUN 24 H Creatinine 1.2 Estim Creat Clear Calc 69.4 eGFR > 60 BUN/Creatinine Ratio 20 Glucose 91 Calculated Osmolality 281 Calcium 9.3 Corrected Calcium 9.3 Phosphorus 5.1 Magnesium 2.2 Iron 59 L TIBC 312 Iron Saturation 18 L Unsat Iron Binding 253 Albumin 4.2 Triglycerides 210 H Cholesterol 156 LDL Cholesterol, Calc 72 HDL Cholesterol 42 Cholesterol/HDL Ratio 3.7 L ABG Interpretation ABG results: 03/25/25 20:19 ABG pH 7.43 ABG pCO2 35 ABG pO2 66 L ABG HCO3 23 ABG O2 Saturation 94 ABG Base Excess -1 Quality Measures Quality Measures VTE prophylaxis Assessment & Plan Assessment Current Active Medications: Generic Name Dose Route Start Last Admin Trade Name Freq PRN Reason Stop Dose Admin Acetaminophen 650 mg 03/25/25 22:02 Acetaminophen 325 Mg Tablet PO 04/24/25 22:01 Q6H PRN Fever >101.5 or pain 1-3 Albuterol/Ipratropium 3 ml 03/26/25 01:00 03/28/25 06:39 Albuterol/Ipratropium (Duoneb) Rt Melina 3 Ml Nebu INH 04/25/25 00:59 3 ml Q6HRRT YUE Administration Albuterol/Ipratropium 3 ml 03/25/25 22:02 Albuterol/Ipratropium (Duoneb) Rt Melina 3 Ml Nebu INH 04/24/25 22:01 Q4H PRN SHORTNESS OF BREATH OR WHEEZE Aspirin 81 mg 03/26/25 09:00 03/27/25 08:35 Aspirin Ec 81 Mg Tabec PO 04/25/25 08:59 81 mg QDAY YUE Administration Atorvastatin Calcium 40 mg 03/26/25 21:00 03/27/25 20:17 Atorvastatin Calcium 20 Mg Tablet PO 04/25/25 20:59 40 mg HS YUE Administration Heparin Sodium (Porcine) 5,000 unit 03/25/25 22:15 03/27/25 21:17 Heparin Sod Inj 5000 Unit/Ml Vial SC 04/08/25 22:14 5,000 unit Q12H YUE Administration Amiodarone HCl/Dextrose 360 mg in 200 mls @ 16.667 mls/hr 03/27/25 18:55 03/28/25 01:05 Nexterone Ivpb IV 03/28/25 18:54 16.667 mls/hr .Q12H YUE Administration Sennosides 1 tab 03/25/25 22:02 Senna Tablet PO 04/24/25 22:01 QDAY PRN constipation Protocol Plan Mr. Boo Rodriguez is 45yM with PMH of dilated cardiomyopathy, HFrEF (15% 10/2024), Methamphatamine abuse, nephrolithiasis, presented to the ED on 03/25/2025 due to worsening Shortness of breathe. Patient was admitted for managment of acute hypoxic respiratory failure. Cardiology was consulted on 03/27 for management of acute exacerbation of decompensated HF. #Acute Decompensated Heart Failure, improving #Right and left systolic and diastolic heart failure, EF 15% (on ECHO 10/2024), NHYA class II #Dilated cardiomyopathy, history of methamphetamine abuse Presented to the hospital with progressively worsening SOB since 3 days, PND and orthopnea. Patient has history of chronic heart failure, has been admitted for exacerbation in the past. Patient does not follow-up with primary care physician outpatient, reports that he gets his medications from the hospital, reports taking Lasix 40 twice daily, Coreg 3.125 twice daily, lisinopril 10 mg daily and spironolactone 25 mg daily. However there is concern of medication noncompliance. Patient is not established with cardiology outpatient. Patient's underlying etiology most likely nonischemic cardiomyopathy secondary to his history of drug use, Urine toxicology positive for Meth use. He also has hx of methamphetamine use. However patient denies methamphetamine use, reports last use was about a year ago, reports sitting with his friends while they are smoking. In ED, Pulse rate was 104, RR: 24. Elevated D dimer of 787, Troponin 0.215, BNP of 1664 CXR (03/25/2025) shows mild vascular congestion. TSH 0.40, free T4 1.3, Iron panel shows iron 59 mcg, TIBC 312, iron saturation 18%, iron sat iron binding 253 Echocardiogram 11/06/24: Dilated cardiomyopathy LVEDD 8cm. Global LV systolic function is severely decreased with normal wall thickness. Estimated EF at 15 % The RV is normal in size. The RV systolic function is moderately decreased. Severely increased LA volume 63.3 mL/m?. Mild to moderate mitral regurgitation Plan: - Resume Lasix 40 mg p.o. twice daily in a.m. - Started on Entresto half tablet today evening -Will start on beta-amado metoprolol versus Coreg as blood pressure permits in a.m. And then will consider adding spironolactone outpatient. -Patient was educated on the importance of abstaining from methamphetamine use and minimizing exposure to enviroments or individuals associated with meth use. Achieving sustained abstinence and should obtain negative urine toxicology results to proceed with outpatient cardiology evaluation for ICD placement due to HFrEF of 15% if patient does not respond to GDMT. -Keep Mg>2 and K>4 at all times - Pending repeat echocardiogram - Venofer 200 mcg x 1 #NSTEMI type II, demand ischemia Presented with troponin elevation 0.225, which downtrended to 0.177, no chest pain on presentation. EKG shows Sinus rhythm, left bundle branch block, QRS 134 Likely due to demand ischemia in the setting of decompensated HF and dilated cardiomyopathy due to methamphetamine abuse. -03/27: Patient's current symptom is mild SOB. Tele monitoring showed NSR with PVCs Plan: -Monitor for chest pain and symptoms -Continue aspirin and statin -Patient will need outpatient cardiac catheterization for further evaluation #Nonsustained ventricular tachycardia Patient noted to have multiple runs of V. tach on telemetry, nonsustaining reverting back to sinus with PVCs. Patient asymptomatic. Noted to have monomorphic ventricular tachycardia run on telemetry greater than 30 seconds x 1 patient asymptomatic Patient during these episodes had no electrolyte imbalances per chart review. Patient has severely reduced ejection fraction, EF 15% - Continue amiodarone gtt., transition to amiodarone 200 p.o. twice daily - Advised to achieve sustained abstinence and should obtain negative urine toxicology results to proceed with outpatient cardiology evaluation for ICD placement due to HFrEF of 15% if patient does not respond to GDMT. #Dyslipidemia Lipid panel 02/04/2025: Triglycerides 196, cholesterol 173, LDL 93, HDL 41 -Continue atorvastatin 40 mg at bedtime #Acute Hypoxic Respiratory Failure, resolved #Acute kidney injury #Methamphetamine use Management per primary team Thank you for the consult and allowing to participate in the care of the patient. Cardiology will continue to follow. Case discussed with Attending Physician Dr. Tommy Arias MD Internal Medicine PGY-2 Disclaimer: This note was dictated by speech recognition. Minor errors in chief sustainability officer may be present due to voice recognition software. Attending Provider Attestation/Addendum I have personally seen and examined the patient separately on the above date of service and discussed the plan of care with the resident. I reviewed the resident Dr. Diana Arias consultation progress note and agree with the resident findings and plan in the note above and have also edited the documentation to reflect my findings and plan. Tommy Davila M.D. Interventional Cardiology
[2025-03-28] MEDS: ASPIRIN EC 81 MG TABEC PO (09:18)
[2025-03-28] MEDS: HEPARIN SOD INJ 5000 UNIT/ML VIAL SC (09:18)
[2025-03-28] MEDS: IRON SUCROSE CPLX INJ 20 MG/ML VIAL 5 ML 200 MG IVP (16:18)
[2025-03-28] MEDS: ATORVASTATIN CALCIUM 20 MG TABLET 40 MG PO (20:17)
[2025-03-28] MEDS: AMIODARONE HCL 200 MG TABLET PO (20:18)
[2025-03-29] VITALS (7 sets, daily range): BP systolic 108–117; BP diastolic 72–89; PULSE 61–77; RESP 16–94; TEMP 36–36.5; O2SAT 93–100; BMI 27.1
[2025-03-29 06:53] LABS: Basophils # (Auto) 0.1 Thou/mm3 (0.0-0.2); Basophils % (Auto) 1 % (0-2.5); Eosinophils # (Auto) 1.0 Thou/mm3 (0.0-0.5); Eosinophils % (Auto) 11 % (0-10); Hematocrit 48.0 % (41.0-53.0); Hemoglobin 15.6 g/dL (13.5-16.0); Immature Granulocytes Auto 0.06 Thou/mm3 (0.00-0.00); Lymphocytes # (Auto) 1.8 Thou/mm3 (1.0-4.8); Lymphocytes % (Auto) 21 % (10-50); Mean Corpuscular HGB Conc 32.5 g/dl (31.0-37.0); Mean Corpuscular Hemoglobin 32.4 pg (25.0-35.0); Mean Corpuscular Volume 100 fL (80-100); Monocytes # (Auto) 0.7 Thou/mm3 (0.0-0.8); Monocytes % (Auto) 8 % (0-12); Neutrophils # (Auto) 4.8 Thou/mm3 (1.8-7.7); Neutrophils % (Auto) 57 % (37-80); Nucleated Red Blood Cell # 0.00 Thou/mm3 (0.00-0.00); Nucleated Red Blood Cell % 0 /100 WBC (0); Platelet Count 217 Thou/mm3 (140-440); RDW Standard Deviation 51.0 fL (35.1-43.9); Red Blood Count 4.81 Miln/mm3 (4.50-5.90); White Blood Count 8.4 Thou/mm3 (3.8-10.6)
[2025-03-29] MEDS: ALBUTEROL/IPRATROPIUM (Duoneb) RT SOL 3 ML NEBU INH (06:58)
[2025-03-29 07:03] LABS: Albumin, Serum 4.3 gm/dL (3.5-5.0); Anion Gap 11 (7-16); BUN/Creatinine Ratio 14 Ratio (12-20); Blood Urea Nitrogen 13 mg/dL (9-23); Calcium 9.2 mg/dL (8.3-10.6); Calcium (Corrected) 9.2 mg/dL (8.5-10.1); Carbon Dioxide 22.4 mMol/L (20.0-31.0); Chloride 104 mMol/L (98-107); Creatinine (Component) 0.9 mg/dL (0.6-1.3); Estimated Creatinine Clearance 92.5 mL/min (>60); Glucose 115 mg/dL (74-106); Magnesium 2.3 mg/dL (1.6-2.6); Osmolality,Calculated 274 (275-295); Phosphorous 3.5 mg/dL (2.4-5.1); Potassium 4.6 mMol/L (3.4-5.1); Sodium 137 mMol/L (136-145); eGFR > 60 See Note
[2025-03-29] MEDS: HEPARIN SOD INJ 5000 UNIT/ML VIAL SC (09:22)
[2025-03-29] MEDS: ASPIRIN EC 81 MG TABEC PO (09:30)
[2025-03-29] MEDS: AMIODARONE HCL 200 MG TABLET PO (09:30)
--- NOTE | 2025-03-29 12:05 | ESDS_ITS ---
<Statement entered by Devin Leyva MD - 03/29/25 12:55> Note reviewed and agree with care plan as documented. Please refer to the note below for further details. Plan discussed with attending physician Dr. Teresa Leyva MD PGY-2 Internal Medicine Planned Discharge Date 03/29/25 DS: Providers Provider Date of admission: 03/25/25 22:02 Primary care physician: Gera Blake PA-C Admitting Provider: Karishma Monge MD Attending Provider on Admission: Karishma Monge MD Consults: 03/27/25 10:46 Consult to Cardiology Routine Comment: Consulting Provider: Tommy Davila Attending Provider on DC: Chino Moore MD Discharging Provider: Chino Moore MD Anticipated date of discharge: 03/29/25 DS: Diagnosis Problem List Completed Was Problem List Reviewed/Reconciled?: Yes Hospital Course Hospital Course Hospital course: Summary Patient is a 45-year-old male with a medical history of dilated cardiomyopathy, meth abuse, and HFrEF (15% 11/06), dyslipidemia, and primary hypertension who presented to [facility] ED on 03/25/25 for shortness of breath. The patient was adm itted for management for CHF exacerbation.The patient was also provided on room air saturating 99 send symptomatically improved with pleuritic, tachypneic, and tachycardic with transient V. tach. Physical exam was significant for pulmonary crackles and bilateral pitting edema. Initial labs significant troponin 0.215, BNP 1664, and urine toxicology positive for methamphetamine.Chest x-ray shows mild heart failure. Patient was diuresis with lasix 40mg BID with net of -1 liter. Cardiology consulted, discontinue Coreg, lisinopril, spironolactone. Underwent washout period from lisinopril with plans to start on new GDMT of entresto 0.5 tab, metoprolol succinate 25 mg, amiodarone 200mg bid due to nonsustained V-tach. Repeat echo on 03/29/2025 showed similar ejection fraction of 15-20%. Patient is now able to lie down flat, crackles improved pitting edema. Patient was counseled extensively illicit drugs can worsen his cardiomyopathy. Throughout the hospital course patient other problems were managed and his condition improved remarkably with progression of hospital course. Further plan to discharge the patient home since to self care with the following instructions. Discharge recommendation: - Follow up with PCP in 1-2 weeks, If you don't have a PCP, you can make an appointment at the [facility]: - Prescribe new Entreto 0.5 tab orally twice daily - Prescribe new amiodarone 200mg twice daily for 1month then transition to once daily - Prescribe new metoprolol succinate 25mg once daily - Prescribe new aspirin 81mg daily - Stop carvedilol, spironolactone, lisinopril - Continue rest of medications atorvastatin, lasix and hydroxyzine, lasix 40 mg daily - Return to the ED or call EMS is symptoms return and/or worsen Hospital Diagnoses: #CHF exacerbation (resolving) #Acute on chronic HFrEF (LVEF 15%) #Dilated cardiomyopathy 2/2 methamphetamine use #Nonsustained ventricular tachycardia #Dyslipidemia #Iron Deficiency,mild #NSTEMI type II (resolve) Patient assessed under supervision of attending physician and senior resident Dr. Leyva PGY-2 Eboni Jarrell MD PGY-1, Internal Medicine Please note: this document was transcribed using voice recognition technology; minor inaccuracies may be present. Time spent discussing smoking cessation with patient: more than 10 minutes Time Spent with Patient Time attestation: Total time spent providing and/or coordinating discharge services: Time spent: Greater than 30 minutes Exam Vital Signs Temp Pulse Resp BP Pulse Ox O2 Del Method O2 Flow Rate 96.8 F 77 21 H 117/89 H 98 Room Air 2 03/29/25 12:00 03/29/25 12:03/29/25 12:03/29/25 12:00 03/29/25 12:03/29/25 12:03/26/25 04:00 Narrative Exam General: Alert, no acute distress.Conversational and non-toxic appearing. Skin: Warm, dry, intact. No rash or ecchymoses. Head: Normocephalic, atraumatic. Eye: Normal conjunctiva, PERRL. Throat: Oral mucosa moist. No obvious lesions in oropharynx. Cardiovascular: Regular rate and rhythm, no murmur, +S1/S2. Respiratory: Lungs are clear to auscultation, respirations unlabored, no crackles, no wheezing. Gastrointestinal: Soft, nontender, non-distended. No guarding or rebound tenderness. Extremities: No edema, no cyanosis, no clubbing. Neuro: Alert and oriented x3.No focal deficits observed. Conversant, moving all extremities. No overt cerebellar signs/incoordination. Psychiatric: Cooperative, appropriate affect Discharge Plan Plan Patient Disposition: HOME (Self Care) Patient condition on transfer: Stable Care Plan Goals: - Follow up with PCP in 1-2 weeks, If you don't have a PCP, you can make an appointment at the [facility]: - Follow up with a surface water manager within one to two weeks as you will need outpatient cardiac catheterization for further evaluation - Prescribe new Entreto 0.5 tab orally twice daily - Prescribe new amiodarone 200mg twice daily for 1month then transition to once daily - Prescribe new metoprolol succinate 25mg once daily - Prescribe new aspirin 81mg daily - Stop carvedilol, spironolactone, lisinopril - Continue rest of medications atorvastatin, lasix and hydroxyzine, lasix 40 mg daily - Return to the ED or call EMS is symptoms return and/or worsen - Realice un seguimiento con alvarez m?dico de cabecera en 1-2 semanas. Si no tiene un m?dico de cabecera, puede programar yuliana ovi en el [facility]?sasha: - Se le receta Entresto 0.5 mg por v?a oral dos veces al d?a. - Se le receta amiodarona 200 mg dos veces al d?a rigo un mes y luego yuliana vez al d?a. - Se le receta succinato de metoprolol 25 mg yuliana vez al d?a. - Se le receta aspirina 81 mg al d?a. - Suspenda carvedilol, espironolactona y lisinopril. - Contin?e con el erum de los medicamentos: atorvastatina, furosemida e hidroxizina; furosemida 40 mg al d?a. - Regrese a la kalpana de emergencias o llame a los servicios de emergencia si los s?ntomas reaparecen o empeoran. Prescriptions/Referrals Prescriptions/Med Rec: New amiodarone 200 mg Tablet 200 mg PO BID 30 Days Qty: 60 0RF metoprolol succinate 25 mg tablet extended release 24 hr 25 mg PO QDAY 30 Days Qty: 30 0RF sacubitril-valsartan 24-26 mg Tablet 0.5 tab PO BID 30 Days Qty: 30 0RF (DME) blood pressure test kit-medium Kit See Rx Instructions .Route Qty: 1 0RF Rx Instructions: As directed aspirin 81 mg Tablet,Delayed Release (Dr/Ec) 81 mg PO QDAY 30 Days Qty: 30 0RF furosemide [Lasix] 40 mg tablet 40 mg PO BID 30 Days Qty: 60 0RF Continued hydroxyzine HCl 10 MG tablet 10 mg PO QDAY Qty: 0 atorvastatin 40 mg tablet 40 mg PO HS Qty: 90 0RF Discontinued carvedilol 3.125 mg Tablet 3.125 mg PO BIDWM Qty: 90 0RF Rx Instructions: Hold if blood pressure drops below 80/60 mmHg aspirin 81 mg Tablet,Delayed Release (Dr/Ec) 81 mg PO QDAY Qty: 90 0RF spironolactone 25 mg Tablet 25 mg PO QDAY Qty: 90 0RF Rx Instructions: Hold if blood pressure drops below 80/60 mmHg lisinopril 10 mg tablet 10 mg PO QDAY Qty: 90 0RF furosemide 40 mg Tablet 40 mg PO BID Qty: 90 0RF No Action ibuprofen 800 mg tablet 800 mg PO Q8H Qty: 20 0RF Referrals: Gera Blake PA-C [Primary Care Provider] Patient/Caregiver Discharge Instructions Discharge Activity: activity as tolerated Education Materials: Substance Abuse and Traumatic ..., Understanding Methamphetamine ..., Heart Failure Dc Print Language: Greenlandic Stand Alone Forms: Estella Award Info., Patient Portal Info Letter Discharge Order Discharge Orders: Discharge (Routine); Ordered 03/29/25 Ordered By: Devin Almodovar Ndroxie Quality Discharge Quality Measures VTE prophylaxis Attestestation Attestation I have examined the patient, reviewed labs and imaging findings, discussed the case with the resident(s), and reviewed entered orders. I agree with the plan of care as outlined in this note. Time Spent; [address] Teresa MD
[2025-03-29 13:29] LABS: Ferritin 118 ng/mL (10.5-307.3)
--- NOTE | 2025-03-29 18:33 | ESPR_ITS ---
<Statement entered by Diana Arias MD - 03/30/25 07:25> Patient was seen and examined by me personally. I have reviewed the below documentation by the team resident and agree with its findings. Mr. 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 Patient endorsed progressive shortness of breath 3 days prior to admission with PND, denies orthopnea palpitations or chest pain. Patient noted to have elevated troponin, BNP and urine drug screen positive for methamphetamine on admission. Patient denies meth use for a year however reports that his friends around him have been smoking methamphetamine. On telemetry patient noted to have episodes of ventricular tachycardia which reverted to sinus rhythm, patient continues to have frequent PVCs and runs of nonsustained ventricular tachycardia on telemetry. Patient asymptomatic denies any symptoms. Patient denies following up with PCP outpatient, not established with cardiology. Patient received IV amiodarone drip, telemetry stable was transition to amiodarone 200 p.o. twice daily. Was started on sacubitril?valsartan 0.5 tablet twice daily and metoprolol succinate 25 mg p.o. daily. Patient is stable today to be discharged from cardiac standpoint. We discussed in detail at bedside regarding quitting methamphetamine however patient not receptive seems disinterested in abstinence. Patient is likely noncompliant hence not a candidate for LifeVest. Endorsed at bedside that he needs to establish care with primary care outpatient, reinforced the importance of GDMT and was educated on high mortality associated with his diagnosis. Needs outpatient GDMT for 3-6 months compliance, methamphetamine abstinence and reevaluating EF to assess for possible ICD placement. Recommend following up with primary care physician uptitrating GDMT as tolerated, recommend adding spironolactone 12.5 mg outpatient if blood pressure permissible. Medications recommended on discharge: ?Amiodarone 200 mg p.o. twice daily for 30 days then transition to amiodarone 200 mg daily. ?Lasix 40 mg p.o. twice daily ?Sacubitril valsartan 0.5 mg p.o. twice daily, uptitrate outpatient as blood pressure permissible. ?Metoprolol succinate 25 mg p.o. daily, uptitrate to metoprolol succinate 50 mg daily outpatient as blood pressure permissible. ?Atorvastatin 40 mg at bedtime and aspirin 81 mg daily ?Follow-up with primary care physician and consider adding spironolactone as blood pressure permits. Thank you for the consult and allowing to participate in the care of the patient. Cardiology will continue to follow. Case discussed with Attending Physician Dr. Tommy Arias MD Internal Medicine PGY-2 Disclaimer: This note was dictated by speech recognition. Minor errors in diamond broker may be present due to voice recognition software. Documentation for date of: 03/29/25 Subjective Subjective Interval history: Mr. Boo Rodriguez is 45yM with PMH of dilated cardiomyopathy, HFrEF (15% 10/2024), Methamphatamine abuse, nephrolithiasis, presented to the ED on 03/25/2025 due to worsening Shortness of breath. The symptom started about 3 days before admission, where it started to progressively worsen to the point where he repeatedly waken up during the sleep. At the time, he was having trouble walking even short distances. Denies any palpation, orthopnea, chest pain, diaphoresis or N/V. Patient does not have any history of asthma or COPD, or smoking history. He does have hx of meth abuse. When asked, patient answered he never took it for 2 months, however, does hang out with friends who uses meth. Patient has not been really compliant with prescribed medications. Based on his previous admission with similar reason, in Jan 2025, ECHO (11/06/2024) showed dilated cardiomyopathy HFrEF, LVEF 15%. Was given Bumex at the time. However, due to hx of meth use, LifeVest was not given. Patient was admitted for managment of acute hypoxic respiratory failure. Cardiology was consulted on 03/27 for management of acute exacerbation of decompensated HF. ED course: Vitals: Temp: 98.9F, KY:104, RR:24, BP:116/80, O2sat:95% RA Labs: WBC: 7.1, Hgb: 12.9, D-dimer: 787, HCO3:23.3, Cr:1.1, Glucose:110, HbA1c: 5.6, Troponin: 0.215, BNP:1664, TSH: 0.4, Free T4: 1.30 Urine positive for Methamphatamine. In ED, he was given Duoneb 3ml inh x1, IV Lasix 40mg x1, IV morphine 2mg x1, Nitroglycerin Onit 2% x1, IM Decadron 10mg x1. He was noted to have transient V.tac less than 5 secs in ED. 03/27/2025: No Overnight events. Labs reviewed and patient examined at the bedside. Patient was noted to have transient V.tach episodes on telemetry that are nonsustained and he reverts to sinus rhythm. Patient currently has NSR with PVCs on telemetry. Patient will be started on amiodarone gtt., will transition to oral amiodarone 03/29. Patient still has wheezing in bilateral lungs. Trace edema on right lower leg. There is a component of possible noncompliance with GDMT, will hold Lasix and GDMT today patient noted to have STEPHENIE, creatinine 1.2, yesterday creatinine 0.9 will assess renal function in AM. 36-hour washout period for lisinopril, will start on Entresto tomorrow evening if renal function and blood pressure permissible. Will start on beta-amado metoprolol versus Coreg as blood pressure permits. And then will consider adding spironolactone. Patient was educated on the importance of abstaining from methamphetamine use and minimizing exposure to enviroments or individuals associated with meth use. Achieving sustained abstinence and should obtain negative urine toxicology results to proceed with outpatient cardiology evaluation for ICD placement due to HFrEF of 15% if patient does not respond to GDMT. 03/28/2025: Patient seen and examined at bedside, no current complaints. Telemetry reviewed. Patient on amiodarone drip, will start on oral amiodarone 200 mg p.o. twice daily this evening. Patient's blood pressure is soft, will start GDMT with half tablet Entresto in the evening. Minimally low iron reserve, IV iron x 1 Will follow renal function and blood pressure in a.m., will consider adding beta-amado in AM 03/29/2025: Patient showed disinterest in quitting methamphetamine. Not a candidate for LifeVest. Will continue GDMT and was informed to the patient how important to be compliant with the medication in order to avoid serious circumstances from his medical conditions. On discharge, recommend to give amiodarone 200mg po bid for 1 month then change to once daily. Lasix 40mg po bid, Sacubitril Valsartan 0.5mg po bid and increase as BP tolerates. Metoprolol succinate 25mg po qd, and increase to 50mg as BP tolerates. Atorvastain 40mg po qd and aspirin 81mg po qd. Follow up outpt pcp to possible add spironolactone as BP tolerates. Exam Vital Signs Temp Pulse Resp BP Pulse Ox O2 Del Method O2 Flow Rate 96.8 F 77 21 H 117/89 H 98 Room Air 2 03/29/25 12:00 03/29/25 12:00 03/29/25 12:03/29/25 12:03/29/25 12:00 03/29/25 12:03/26/25 04:00 Narrative Exam General: Awake and in no acute distress. Conversational and non-toxic appearing. HEENT: Normocephalic, atraumatic, mucous membranes moist. Heart: Regular rate and rhythm, no murmurs. Lungs: Clear to auscultation with no wheezing or crackles. Abdomen: Soft, nondistended, nontender, positive bowel sounds. ?No guarding or rebound tenderness. Neurologic: Alert and oriented x3, no gross neurological deficit, and patient able to move all 4 extremities. Extremities: Trace bilateral lower extremity edema. Skin: No rash or ecchymoses. Objective Labs 03/29/25 04:56 03/29/25 04:56 Labs: Laboratory Results - last 24 hr 03/28/25 03/29/25 05:48 04:56 WBC 8.4 RBC 4.81 Hgb 15.6 Hct 48.0 MCV 100 MCH 32.4 MCHC 32.5 RDW Std Deviation 51.0 H Plt Count 217 D Neut % (Auto) 57 Lymph % (Auto) 21 Dixon % (Auto) 8 Eos % (Auto) 11 H Baso % (Auto) 1 Neut # (Auto) 4.8 Lymph # (Auto) 1.8 Dixon # (Auto) 0.7 Eos # (Auto) 1.0 H Baso # (Auto) 0.1 Immature Gran # (Auto) 0.06 H Absolute Nucleated RBC 0.00 Immature Gran % 1 H Nucleated RBC % 0 Sodium 137 Potassium 4.6 D Chloride 104 Carbon Dioxide 22.4 Anion Gap 11 BUN 13 Creatinine 0.9 Estim Creat Clear Calc 92.5 eGFR > 60 BUN/Creatinine Ratio 14 Glucose 115 H Calculated Osmolality 274 L Calcium 9.2 Corrected Calcium 9.2 Phosphorus 3.5 Magnesium 2.3 Ferritin 118 Albumin 4.3 ABG Interpretation ABG results: 03/25/25 20:19 ABG pH 7.43 ABG pCO2 35 ABG pO2 66 L ABG HCO3 23 ABG O2 Saturation 94 ABG Base Excess -1 Quality Measures Quality Measures VTE prophylaxis Assessment & Plan Plan Mr. Boo Rodriguez is 45yM with PMH of dilated cardiomyopathy, HFrEF (15% 10/2024), Methamphatamine abuse, nephrolithiasis, presented to the ED on 03/25/2025 due to worsening Shortness of breathe. Patient was admitted for managment of acute hypoxic respiratory failure. Cardiology was consulted on 03/27 for management of acute exacerbation of decompensated HF. #Acute Decompensated Heart Failure, improving #Right and left systolic and diastolic heart failure, EF 15% (on ECHO 10/2024), NHYA class II #Dilated cardiomyopathy, history of methamphetamine abuse Presented to the hospital with progressively worsening SOB since 3 days, PND and orthopnea. Patient has history of chronic heart failure, has been admitted for exacerbation in the past. Patient does not follow-up with primary care physician outpatient, reports that he gets his medications from the hospital, reports taking Lasix 40 twice daily, Coreg 3.125 twice daily, lisinopril 10 mg daily and spironolactone 25 mg daily. However there is concern of medication noncompliance. Patient is not established with cardiology outpatient. Patient's underlying etiology most likely nonischemic cardiomyopathy secondary to his history of drug use, Urine toxicology positive for Meth use. He also has hx of methamphetamine use. However patient denies methamphetamine use, reports last use was about a year ago, reports sitting with his friends while they are smoking. In ED, Pulse rate was 104, RR: 24. Elevated D dimer of 787, Troponin 0.215, BNP of 1664 CXR (03/25/2025) shows mild vascular congestion. TSH 0.40, free T4 1.3, Iron panel shows iron 59 mcg, TIBC 312, iron saturation 18%, iron sat iron binding 253 Echocardiogram 03/27/2025: 1. Severely enlarged LV at 8.1 cm and systolic function is severely reduced. Estimated ejection fraction is < 15%. There is grade II diastolic dysfunction. 2. Right ventricle chamber size is normal and systolic function is reduced. Mildly elevated RVSP and estimated at 36 mmHg. 3. There is mild aortic valve sclerosis. Mild aortic regurgitation. 4. There is mild to moderate eccentric mitral valve regurgitation. Mildly dilated LA. 5. There is mild tricuspid valve regurgitation and trace PI. No pericardial effusion. We discussed in detail at bedside regarding quitting methamphetamine however patient not receptive seems disinterested in abstinence. Patient is likely noncompliant hence not a candidate for LifeVest. Endorsed at bedside that he needs to establish care with primary care outpatient, reinforced the importance of GDMT and was educated on high mortality associated with his diagnosis. Medications recommended on discharge: ?Amiodarone 200 mg p.o. twice daily for 30 days then transition to amiodarone 200 mg daily. ?Lasix 40 mg p.o. twice daily ?Sacubitril valsartan 0.5 mg p.o. twice daily, uptitrate outpatient as blood pressure permissible. ?Metoprolol succinate 25 mg p.o. daily, uptitrate to metoprolol succinate 50 mg daily outpatient as blood pressure permissible. ?Atorvastatin 40 mg at bedtime and aspirin 81 mg daily ?Follow-up with primary care physician and consider adding spironolactone as blood pressure permits. -Patient was educated on the importance of abstaining from methamphetamine use and minimizing exposure to enviroments or individuals associated with meth use. Achieving sustained abstinence and should obtain negative urine toxicology results to proceed with outpatient cardiology evaluation for ICD placement due to HFrEF of 15% if patient does not respond to GDMT. -Keep Mg>2 and K>4 at all times #NSTEMI type II, demand ischemia Presented with troponin elevation 0.225, which downtrended to 0.177, no chest pain on presentation. EKG shows Sinus rhythm, left bundle branch block, QRS 134 Likely due to demand ischemia in the setting of decompensated HF and dilated cardiomyopathy due to methamphetamine abuse. -03/27: Patient's current symptom is mild SOB. Tele monitoring showed NSR with PVCs Plan: -Monitor for chest pain and symptoms -Continue aspirin and statin -Patient will need outpatient cardiac catheterization for further evaluation #Nonsustained ventricular tachycardia Patient noted to have multiple runs of V. tach on telemetry, nonsustaining reverting back to sinus with PVCs. Patient asymptomatic. Noted to have monomorphic ventricular tachycardia run on telemetry greater than 30 seconds x 1 patient asymptomatic Patient during these episodes had no electrolyte imbalances per chart review. Patient has severely reduced ejection fraction, EF 15% - amiodarone 200 p.o. twice daily - Advised to achieve sustained abstinence and should obtain negative urine toxicology results to proceed with outpatient cardiology evaluation for ICD placement due to HFrEF of 15% if patient does not respond to GDMT. #Dyslipidemia Lipid panel 02/04/2025: Triglycerides 196, cholesterol 173, LDL 93, HDL 41 -Continue atorvastatin 40 mg at bedtime #Acute Hypoxic Respiratory Failure, resolved #Acute kidney injury #Methamphetamine use Management per primary team Thank you for the consult and allowing to participate in the care of the patient. Cardiology will continue to follow. Assessment and plan discussed with my attending physician Dr. Lola Doty (PGY-1) - Internal medicine resident Attending Provider Attestation/Addendum I have personally seen and examined the patient separately on the above date of service and discussed the plan of care with the resident. I reviewed the resident Dr. Rey Doty / Diana Arias consultation progress note and agree with the resident findings and plan in the note above and have also edited the documentation to reflect my findings and plan. Tommy Davila M.D. Interventional Cardiology
== END 2025-03-29 11:50 | disposition home or self-care (01) | DRG 194 ==
LOC: SERX 22:12 → SERHOLD 23:02 → S2NX 23:38
PROVIDERS: Physician Assistant; Admitting Provider Student in an Organized Health Care Education/Training Program; Emergency Provider Emergency Medicine; PCP Physician Assistant; Visit Provider Student in an Organized Health Care Education/Training Program
DX: I11.0 Hypertensive heart disease with heart failure (principal); I50.43 Acute on chronic combined systolic (congestive) and diastolic (congestive) heart failure; Z91.148 Patient's other noncompliance with medication regimen for other reason; F15.10 Other stimulant abuse, uncomplicated; I42.0 Dilated cardiomyopathy; I21.A1 Myocardial infarction type 2; I44.7 Left bundle-branch block, unspecified; I47.29 Other ventricular tachycardia; E78.5 Hyperlipidemia, unspecified; E61.1 Iron deficiency; T50.2X5A Adverse effect of carbonic-anhydrase inhibitors, benzothiadiazides and other diuretics, initial encounter; I34.0 Nonrheumatic mitral (valve) insufficiency; I35.8 Other nonrheumatic aortic valve disorders; Z79.82 Long term (current) use of aspirin; Z79.899 Other long term (current) drug therapy; Z87.442 Personal history of urinary calculi; I42.7 Cardiomyopathy due to drug and external agent
CPT/HCPCS: 36415; 36600; 71045; 80048; 80061; 80069; 80307; 80320; 81001; 82550; 82728; 82803; 83036; 83540; 83550; 83735; 83880; 84439; 84443; 84481; 84484; 85025; 85379; 85610; 85730; 86703; 86780; 87502; 87635; 93005; 93306; 94640; 94664; 96372; 96374; 99284; A9270; J0283; J1100; J1644; J1756; J1938; J2270; J3475; G0480

== ENCOUNTER 2025-03-30 06:04 | Emergency (ER) | payer MEDICAID, SELFPAY ==
[2025-03-30 06:06] VITALS: BP 134/97; PULSE 99; RESP 18; TEMP 36.4; O2SAT 100
[2025-03-30 06:07] VITALS: BMI 27.4
--- NOTE | 2025-03-30 06:21 | XR_ITS ---
Examination: Foot, left, 3 views Technique: AP, oblique, lateral views foot, 3 views Date and time of exam: March 30, 2025, 0620 hours INDICATIONS: Onset severe foot pain beginning this morning. FINDINGS: Soft tissue prominence first digit No fracture. No yasmine cortical bone obstruction No opaque foreign body IMPRESSION: Soft tissue prominence about the first digit No fracture or cortical bone destruction If early osteomyelitis is a clinical consideration, consider MRI foot without contrast follow-up
--- NOTE | 2025-03-30 06:25 | EDNOTE_ITS ---
<Statement entered by Rosetta Ledesma MD - 03/30/25 17:47> As co-signing physician, I was present and available for consult prn. I concur with the plan and care as documented by the midlevel provider. Lower Extremity Injury RME/HPI General Chief Complaint: Ankle/Foot Injury Stated Complaint: LEFT FOOT PAIN Time Seen by Provider: 03/30/25 06:19 Source: patient Arrival date/time: 03/30/25 06:04 45-year-old male with a history of hyperlipidemia, hypertension, congestive heart failure, methamphetamine abuse, presents to the emergency room with a chief complaint of tenderness and pain to his left foot 1st and 2nd digit. Patient denies any trauma. Mode of arrival: ambulatory Limitations: no limitations Related Data Home Medications ?Medication ?Instructions ?Recorded ?Confirmed hydroxyzine HCl 10 mg tablet 10 mg PO QDAY ##0 2 03/27/25 Previous Rx's ?Medication ?Instructions ?Recorded atorvastatin 40 mg tablet 40 mg PO HS #90 tabs 5 amiodarone 200 mg tablet 200 mg PO BID 30 days #60 ta bs 03/29/25 aspirin 81 mg tablet,delayed 81 mg PO QDAY 30 days #30 tabs 03/29/25 release blood pressure test kit-medium #1 ea 03/29/25 furosemide 40 mg tablet (Lasix) 40 mg PO BID 30 days # 60 tabs 03/29/25 metoprolol succinate 25 mg 25 mg PO QDAY 30 days #30 t abs 03/29/25 tablet,extended release 24 hr sacubitril 24 mg-valsartan 26 mg 0.5 tab PO BID 30 day s #30 tabs 03/29/25 tablet ibuprofen 800 mg tablet 800 mg PO Q8H #20 tabs 03/30 Allergies Allergy/AdvReac Type Severity Reaction Status Date / Time No Known Allergies Allergy Verified 03/25/25 16:41 Review of Systems Review of Systems Systems Reviewed: All systems reviewed, normal except as documented Constitutional Constitutional: Reports system reviewed and no additional complaints, except as documented, Denies fatigue, Denies fever(s), Denies headache(s) and Denies weakness Eyes Eyes: Reports system reviewed and no additional complaints, except as documented, Denies blurry vision and Denies change in vision ENT Ears, Nose, Mouth, and Throat: Reports system reviewed and no additional complaints, except as documented, Denies otalgia, Denies headache(s), Denies nasal congestion, Denies throat swelling and Denies vertigo Cardiovascular Cardiovascular: Reports system reviewed and no additional complaints, except as documented, Denies chest pain, Denies dyspnea and Denies dyspnea on exertion Respiratory Respiratory: Reports system reviewed and no additional complaints, except as documented, Denies chest congestion, Denies cough, Denies dyspnea, Denies dyspnea on exertion and Denies wheezing Gastrointestinal Gastrointestinal: Reports system reviewed and no additional complaints, except as documented, Denies abdominal pain, Denies cramping, Denies nausea and Denies vomiting Genitourinary Genitourinary: Reports system reviewed and no additional complaints, except as documented, Denies dysuria and Denies hematuria Musculoskeletal Musculoskeletal: Reports system reviewed and no additional complaints, except as documented, Reports abnormal gait, Reports arthralgias, Denies back pain, Reports joint swelling and Reports tingling Integumentary/Breasts Skin/Breast: Reports system reviewed and no additional complaints, except as documented and Denies wounds Neurologic Neurologic: Reports system reviewed and no additional complaints, except as documented, Reports abnormal gait, Denies confusion, Denies headache(s), Denies lack of coordination, Reports tingling, Denies vertigo and Denies weakness Psychiatric Psychiatric: Reports system reviewed and no additional complaints, except as documented, Denies anxiety, Denies confusion, Denies depression, Denies paranoia, Denies suicidal ideation and Denies tactile hallucinations Endocrine Endocrine: Reports system reviewed and no additional complaints, except as documented and Denies fatigue Hematologic/Lymphatic Hematologic/Lymphatic: Reports system reviewed and no additional complaints, except as documented and Denies lymphadenopathy Allergic/Immunologic Allergic/Immunologic: Reports system reviewed and no additional complaints, except as documented, Denies throat swelling, Denies urticaria and Denies wheezing ED Exam General Limitations: Present no limitations General appearance: Present alert and in no apparent distress Head Head exam: Present atraumatic Eye Eye exam: Present normal appearance, PERRL and EOMI ENT ENT exam: Present normal exam, normal oropharynx and mucous membranes moist Neck Neck exam: Present normal inspection, full ROM and trachea midline Chest Chest inspection: Present normal inspection and symmetric chest wall rise Respiratory Respiratory exam: Present normal lung sounds bilaterally Cardiovascular Cardiovascular exam: Present regular rate, normal rhythm and normal heart sounds Abdominal Exam Abdominal exam: Present soft and normal bowel sounds Extremities Exam Extremities exam: Present normal inspection and full ROM Expanded Lower Extremity Exam Hip/Pelvis exam: Present normal inspection Upper leg exam: Present normal inspection Knee exam: Present normal inspection Lower leg exam: Present normal inspection Ankle exam: Present normal inspection Foot/toe exam: Present tenderness; Absent full ROM, swelling, erythema or puncture wound Back Exam Back exam: Present normal inspection and full ROM Neurological Exam Neurological exam: Present alert, oriented X3 and CN II-XII intact Psychiatric Psychiatric exam: Present normal affect and normal mood Skin Skin exam: Present warm, dry, intact and normal color Course Quality Measures none Orders Category Date Time Status XR foot comp LT min 3V Stat Exams 03/30/25 06:21 Completed CBC Stat Lab 03/30/25 06:30 Completed CMP [Comprehensive Metabolic Panel] Stat Lab 03/30/25 06:30 Completed Uric Acid Stat Lab 03/30/25 06:30 Completed Ketorolac Inj [Toradol Inj] Med 03/30/25 06:24 Discontinued 30 mg IM X1 ONE Vital Signs Vital signs: Vital Signs Temperature 97.6 F 03/30/25 06:06 Pulse Rate 99 03/30/25 06:06 Respiratory Rate 18 03/30/25 06:06 Blood Pressure 134/97 H 03/30/25 06:06 Pulse Oximetry (%) 100 03/30/25 06:06 Oxygen Delivery Method Room Air 03/30/25 06:06 Extremity Injury, Lower MDM Narrative MDM Narrative:: 45-year-old male with a history of hyperlipidemia, hypertension, congestive heart failure, methamphetamine abuse, presents to the emergency room with a chief complaint of tenderness and pain to his left foot 1st and 2nd digit. Patient denies any trauma. Patient is hemodynamically stable and in no apparent distress Physical examination shows tenderness palpation to the patient's left foot 1st and 2nd digit. There is no puncture wounds there is no cellulitis. There is no abscess or ulceration. There are some erythema to the first digit. Uric acid was within normal limits. X-ray of the foot was negative for any acute findings CBC CMP were negative for any leukocytosis Patient was discharged and educated to follow-up with primary care provider in the next 24 to 48 hours and return to the emergency room for any evidence of worsening signs or symptoms Patient data External records reviewed:: [facility] previous records Clinical information provided by:: patient Social determinants that could affect healthcare access:: none Patient has the following chronic illnesses:: No chronic illness How is presenting disease/condition affected by chronic disease/condition?: no chronic disease Evaluation data The following diagnostics were reviewed and interpreted by me:: lab results and radiology exam(s) Lab and/or radiology exams considered but not ordered:: Labs and radiology exams considered and ordered Interpretation Summary: Foot [id number]: Soft tissue prominence first digit No fracture. No yasmine cortical bone obstruction No opaque foreign body IMPRESSION: Soft tissue prominence about the first digit No fracture or cortical bone destruction If early osteomyelitis is a clinical consideration, consider MRI foot without contrast follow-up Medications / Prescriptions Medications or Prescriptions considered but not ordered:: Medication given Medication administrations:: Medication Administration History Discontinued Medications Ketorolac Tromethamine (Ketorolac Inj 60 Mg/2 Ml Vial) 30 mg IM X1 ONE Stop: 03/30/25 06:25 Last Admin: 03/30/25 06:41 Dose: 30 mg Documented By: CVL Medication given Consultations Consultation(s) initiated? (list below): No Diagnosis Extremity Injury, Lower Differential Diagnosis: other (Foot sprain/foot fracture/gout/arthritis) Most likely diagnosis given after review of the tests above:: Arthritis Admission Indicated Admission indicated?: not indicated Admission Request Was there a request for admission?: No Disposition Plan Disposition Plan: Discharge Discharge Attestation Discharge Attestation: The patient and all family members were given an opportunity to ask questions and understood the discharge instructions. Discharge instructions specifically effects, indications for sooner follow up or return to the emergency department, and the expected course of current diagnosis. Patient condition: Stable Discharge Plan Plan Patient Disposition: HOME (Self Care) Discharge Disposition comment: Stable Prescriptions/Referrals Prescriptions/Med Rec: New ibuprofen 800 mg tablet 800 mg PO Q8H Qty: 20 0RF No Action hydroxyzine HCl 10 MG tablet 10 mg PO QDAY Qty: 0 atorvastatin 40 mg tablet 40 mg PO HS Qty: 90 0RF amiodarone 200 mg Tablet 200 mg PO BID 30 Days Qty: 60 0RF metoprolol succinate 25 mg tablet extended release 24 hr 25 mg PO QDAY 30 Days Qty: 30 0RF sacubitril-valsartan 24-26 mg Tablet 0.5 tab PO BID 30 Days Qty: 30 0RF (DME) blood pressure test kit-medium Kit See Rx Instructions .Route Qty: 1 0RF Rx Instructions: As directed aspirin 81 mg Tablet,Delayed Release (Dr/Ec) 81 mg PO QDAY 30 Days Qty: 30 0RF furosemide [Lasix] 40 mg tablet 40 mg PO BID 30 Days Qty: 60 0RF Referrals: Gera Blake PA-C [Primary Care Provider] - In 1 week Problem List Clinical Impression: Arthritis Patient/Caregiver Discharge Instructions Education Materials: ED Osteoarthritis Additional Instructions: Please follow-up with your primary care provider in the next 24 to 48 hours Your x-ray showed a soft tissue prominence. This can be a lump in the toe. Please follow-up with your primary care provider for further management Medication was sent to your pharmacy please pick it up and take it as indicated For any evidence of worsening signs or symptoms return to the emergency room immediately Print Language: Setswana Stand Alone Forms: Estella Award Info., Work/School Release, Patient Portal Info Letter PA/NIKI Supervising Physician PA/NIKI Supervising Physician: Dr. Batres
[2025-03-30] MEDS: KETOROLAC INJ 60 MG/2 ML VIAL 30 MG IM (06:41)
[2025-03-30 06:58] LABS: Basophils # (Auto) 0.1 Thou/mm3 (0.0-0.2); Basophils % (Auto) 1 % (0-2.5); Eosinophils # (Auto) 0.9 Thou/mm3 (0.0-0.5); Eosinophils % (Auto) 9 % (0-10); Hematocrit 46.4 % (41.0-53.0); Hemoglobin 15.4 g/dL (13.5-16.0); Immature Granulocytes Auto 0.09 Thou/mm3 (0.00-0.00); Lymphocytes # (Auto) 1.9 Thou/mm3 (1.0-4.8); Lymphocytes % (Auto) 19 % (10-50); Mean Corpuscular HGB Conc 33.2 g/dl (31.0-37.0); Mean Corpuscular Hemoglobin 32.3 pg (25.0-35.0); Mean Corpuscular Volume 97 fL (80-100); Monocytes # (Auto) 0.9 Thou/mm3 (0.0-0.8); Monocytes % (Auto) 9 % (0-12); Neutrophils # (Auto) 6.2 Thou/mm3 (1.8-7.7); Neutrophils % (Auto) 61 % (37-80); Nucleated Red Blood Cell # 0.00 Thou/mm3 (0.00-0.00); Nucleated Red Blood Cell % 0 /100 WBC (0); Platelet Count 212 Thou/mm3 (140-440); RDW Standard Deviation 49.1 fL (35.1-43.9); Red Blood Count 4.77 Miln/mm3 (4.50-5.90); White Blood Count 10.1 Thou/mm3 (3.8-10.6)
[2025-03-30 07:08] LABS: Alanine Aminotransferase 22 U/L (10-49); Albumin, Serum 4.2 gm/dL (3.5-5.0); Albumin/Globulin Ratio 1.3 (1.2-2.2); Alkaline Phosphatase 117 U/L (46-116); Anion Gap 8 (7-16); Aspartate Amino Transferase 22 U/L (0-34); BUN/Creatinine Ratio 15 Ratio (12-20); Bilirubin,Total 1.1 mg/dL (0.3-1.2); Blood Urea Nitrogen 16 mg/dL (9-23); Calcium 8.9 mg/dL (8.3-10.6); Calcium (Corrected) 8.9 mg/dL (8.5-10.1); Carbon Dioxide 26.2 mMol/L (20.0-31.0); Chloride 105 mMol/L (98-107); Creatinine (Component) 1.1 mg/dL (0.6-1.3); Estimated Creatinine Clearance 82.0 mL/min (>60); Globulin 3.2 gm/dL (2.3-3.5); Glucose 113 mg/dL (74-106); Osmolality,Calculated 279 (275-295); Potassium 4.9 mMol/L (3.4-5.1); Sodium 139 mMol/L (136-145); Total Protein 7.4 gm/dL (5.7-8.2); Uric Acid 6.3 mg/dL (3.7-9.2); eGFR > 60 See Note
--- NOTE | 2025-03-30 08:17 | PC.NURSE ---
CALLED PT IN LOBBY AND OUTSIDE; NO ANSWER. ANOTHER PT IN THE LOBBY SAID PT LEFT. REGISTRATION ALSO SAID PT LEFT.
== END 2025-03-30 08:17 | disposition home or self-care (01) ==
PROVIDERS: Nurse Practitioner Family; Emergency Provider Emergency Medicine; PCP Physician Assistant
DX: M19.072 Primary osteoarthritis, left ankle and foot (principal)
CPT/HCPCS: 36415; 73630; 80053; 84550; 85025; 96372; 99283; J1885